=== PATIENT | male | born 1950 | race Caucasian/White ===

== ENCOUNTER → 2021-10-06 07:51 | Outpatient (CLI) | payer OTHER, MEDICARE, SELFPAY ==
[2021-10-06 08:27] LABS: Add Manual Diff / Slide Review NO; Basophils Absolute Auto 0 /uL (0-100); Basophils Percent Auto 0.7 % (0-2); Eosinophils Absolute Auto 100 /uL (0-450); Eosinophils Percent Auto 3.2 % (2-4); Hematocrit 39.9 % (41-53); Lymphocytes Absolute Auto 1300 /uL (1100-4500); Lymphocytes Percent Auto 33.4 % (25-40); Mean Corpuscular HGB Conc 32.5 % (30-36); Mean Corpuscular Hemoglobin 27.1 PG (26-34); Mean Corpuscular Volume 83.4 fL (80-100); Monocytes Absolute Auto 400 /uL (0-900); Monocytes Percent Auto 11.4 % (3-14); Neutrophils Absolute Auto 2000 /uL (1500-7000); Neutrophils Percent Auto 51.3 % (50-75); Platelet Count 206 X10^3/uL (150-400); Red Blood Cell Count 4.78 X10^6/uL (4.5-5.9); Red Cell Distribution Width 13.5 % (11.6-14.8); White Blood Cell Count 3.9 X10^3/uL (4.5-11.0)
[2021-10-06 08:41] LABS: Alanine Aminotransferase 16 IU/L (<50); Albumin 4.7 g/dL (3.5-5.0); Albumin Globulin Ratio 1.5 (1.0-2.8); Alkaline Phosphatase 127 U/L (38-126); Aspartate Aminotransferase 21 IU/L (17-59); BUN Creatinine Ratio 16.9 (6-22); Bilirubin Total 0.4 mg/dL (0.2-1.3); Blood Urea Nitrogen 12 mg/dL (9-20); Calcium 9.3 mg/dL (8.4-10.2); Carbon Dioxide 30 mmol/L (22-32); Chloride 102 mmol/L (98-107); Cholesterol 241 mg/dL (140-199); Estimated Glomerular Filt Rate > 60.0 mL/min (>60); Globulin 3.2 g/dL (1.7-4.1); Glucose 118 mg/dL (80-110); HDL Cholesterol 102 mg/dL (40-60); HEMOLYSIS < 15 (0-50); LDL Cholesterol Calculated 124 mg/dL (<100); Potassium 4.3 mmol/L (3.4-5.1); Sodium 137 mmol/L (137-145); Total Protein 7.9 g/dL (6.3-8.2); Triglycerides 73 mg/dL (35-150)
[2021-10-06 11:18] LABS: TSH w/ Reflex to FT4 < 0.02 uIU/mL (0.47-4.68)
[2021-10-06 11:44] LABS: Free T4, Direct Thyroxine 2.07 ng/dL (0.78-2.19)
== END ==
PROVIDERS: PCP Family Medicine; Referring Provider Internal Medicine Infectious Disease; Visit Provider Internal Medicine Infectious Disease
DX: C14.0 Malignant neoplasm of pharynx, unspecified (principal); E03.9 Hypothyroidism, unspecified; E78.5 Hyperlipidemia, unspecified; G40.909 Epilepsy, unspecified, not intractable, without status epilepticus; K21.9 Gastro-esophageal reflux disease without esophagitis
CPT/HCPCS: 36415; 80053; 80061; 83036; 84439; 84443; 85025

== ENCOUNTER → 2022-02-23 09:33 | Outpatient (CLI) | payer MEDICARE, SELFPAY ==
[2022-02-23 11:56] LABS: Hemoglobin A1C% w Est Avg Glu 5.8 % (4.0-6.0)
== END ==
PROVIDERS: PCP Family Medicine; Referring Provider Family Medicine; Visit Provider Family Medicine
DX: C14.0 Malignant neoplasm of pharynx, unspecified (principal); E03.9 Hypothyroidism, unspecified; E78.2 Mixed hyperlipidemia; G40.909 Epilepsy, unspecified, not intractable, without status epilepticus; R73.9 Hyperglycemia, unspecified
CPT/HCPCS: 36415; 83036

== ENCOUNTER 2022-09-01 10:16 | Day surgery (SDC) | payer MEDICARE, SELFPAY ==
--- NOTE | 2022-09-01 | PATH_ITS ---
[facility] Accession Number: [id number] No. of containers..05 Tissue . 01 Material submitted: . PART A: colon - TRANSVERSE COLON POLYP PART B: colon - ASCENDING COLON POLYP PART C: colon - TRANSVERSE COLON POLYP #2 PART D: colon - SIGMOID COLON POLYP PART E: rectum - RECTAL POLYP . 01 Diagnosis: A. Transverse Colon Polyp, Biopsy: Tubular adenoma. . B. Ascending Colon Polyp, Biopsy: Tubular adenoma. . C. Transverse Colon Polyp #2, Biopsy: Colonic mucosa with benign lymphoid aggregates. . D. Sigmoid Colon Polyp, Biopsy: Tubular adenoma. . E. Rectal Polyp, Biopsy: Tubular adenoma. [facility] 09/06/2022 [facility]7 Local . 01 Electronically signed: . Flower Dooley MD, Pathologist NPI- [id number] . 01 Gross description: . Part A: TRANSVERSE COLON POLYP: Received in formalin is 1 fragment(s) of pepe, soft tissue measuring 0.6 x 0.4 x 0.1 cm submitted entirely in 1 cassette(s) Part B: ASCENDING COLON POLYP: Received in formalin are multiple fragment(s) of pepe, soft tissue measuring 0.5 x 0.2 x 0.1 cm in aggregate submitted entirely in 1 cassette(s) Part C: TRANSVERSE COLON POLYP #2: Received in formalin are multiple fragment(s) of pepe, soft tissue measuring 1.7 x 0.5 x 0.1 cm in aggregate submitted entirely in 1 cassette(s) Part D: SIGMOID COLON POLYP: Received in formalin are multiple fragment(s) of pepe, soft tissue measuring 1.0 x 0.5 x 0.1 cm in aggregate submitted entirely in 1 cassette(s) Part E: RECTAL POLYP: Received in formalin is 1 fragment(s) of pepe, soft tissue measuring 0.4 x 0.3 x 0.2 cm submitted entirely in 1 cassette(s) /CPE 09/05/2022 0526 Local . 01 Pathologist provided ICD-10: D12.3, D12.2, D12.5, D12.8 . 01 CPT . 744128, 602367, 236959, [id number], [id number] Specimen Comment: A courtesy copy of this report has been sent to [facility] Pathology Performed at: [address] [facility] [address] [place] [address], [place], [place] [id number] MD Chivo Beaulieu MD Phone: [phone]
[2022-09-01 10:53] VITALS: BP 135/80; PULSE 88; RESP 16; TEMP 36.6; O2SAT 98; BMI 23.3
[2022-09-01] MEDS: LACTATED RINGERS 1,000 ML 120 ML IV (11:06)
--- NOTE | 2022-09-01 11:45 | PM.HP.1 ---
History of Present Illness History of Present Illness Chief complaint: Colonoscopy Narrative: Mr. Ewing presents today for a screening colonoscopy. It has been maybe 20 years since his last colonoscopy. He does not remember if there were any polyps or not. He understands that colonoscopy is recommended for screening for colon cancer. He has a lot to say however about his swallowing problems. He is not scheduled for an EGD today. In fact he explains that he has had several studies regarding his swallowing problem that has been going on for 20 years or so. He had a full workup at about 10 years ago but was disappointed that he never heard back and still feels that he has no explanation or no recourse for improvement of the swallowing problems. He has even had TEMS unit placed on his throat in the past. I am not seeing any previous records of EGDs or colonoscope but I do see an oncology note that documents that he has had squamous cell carcinoma of the base of the tongue and is status post surgery for resection and radiation therapy in 2002. I also see a document that states he has been treated for chronic mandible osteomyelitis in 2021. Otherwise he has no family history of colon cancer or other concerning symptoms. Patient History Medical History (Updated 06/24/21 @ 11:06 by Cristi Hunter MD) Epilepsy GERD (gastroesophageal reflux disease) Hyperlipidemia Hypothyroidism Throat cancer Family & Social History Social History: household members spouse Tobacco & Substance use: Smoking Status Never smoker alcohol intake frequency holiday/special occasion Substance Use Type does not use Meds Home Medications and Allergies Home Medications Medication Instructions Recorded Confirmed Type DISABLED PARKING PERMIT ##1 06/24/21 02/23/22 Rx levothyroxine 175 mcg tablet 175 mcg PO DAILY #90 tabs 02/23/22 09/01/22 Rx (Synthroid) pantoprazole 40 mg tablet,delayed 40 mg PO DAILY #90 tabs 02/23/22 09/01/22 Rx release phenytoin sodium extended 100 mg 100 mg PO TID #90 caps 02/23/22 09/01/22 Rx capsule (Dilantin Extended) pravastatin 80 mg tablet 80 mg PO BEDTIME #90 tabs 02/23/22 09/01/22 Rx Allergies Allergy/AdvReac Type Severity Reaction Status Date / Time No Known Drug Allergies Allergy Verified 09/01/22 10:42 Exam Vital Signs (past 8 hours): - 09/01/22 10:53 Temperature 97.9 F Pulse Rate 88 Respiratory Rate 16 Blood Pressure 135/80 Pulse Oximetry 98 Oxygen Delivery Method Room Air Oxygen Delivery Method Room Air Const General: cooperative, healthy appearing and comfortable Resp Effort & Inspection: normal respiratory effort and able to speak in complete sentences Cardio Pulses: radial pulses present GI Palpation: soft and No tender Assessment & Plan Assessment & Plan narrative: I did discuss risks benefits and alternatives of a screening colonoscopy for the purpose of screening for colon cancer. These risks include but are not limited to perforation of the colon and incomplete exam. The patient understands this and would like to proceed today. He does not feel that he needs an EGD today. I did offer to see him in the office if he wants to further discuss any swallowing issues. I am not sure if I would be able to help but I can requisition older medical documents and possibly order some additional testing. It may be that this swallowing issue is something that has limited treatment options due to his history of surgical resection and radiation therapy. Time Spent With Patient Critical Care time: I spent a total of [] minutes of critical care time on this patient's care today; this time is exclusive of procedural time.
--- NOTE | 2022-09-01 12:54 | P.OP.COLON_ITS ---
Operative Date/Time/Diagnoses Date of procedure: 09/01/22 Pre-op diagnosis: Colon cancer screening Post-op diagnosis: same Procedure & Clinicians Study performed: Colonoscopy and biopsy Same procedure as scheduled: Yes Surgeon: Lizabeth Bermeo Procedure Notes Procedure in detail: Patient was taken to the endoscopy suite and placed in a left lateral decubitus position. A time-out was performed. PHLEBOTOMY PROGRAM COORDINATOR helped with induction of conscious sedation. Digital rectal exam was performed there were no masses or strictures. The colonoscope was introduced into the anal canal and advanced through to the cecum. A photograph was taken of the appendiceal orifice. Withdrawal time in total was 28 minutes but included biopsies of 5 separate polyps. There was a transverse colon polyp that was encountered upon entry and snared and biopsied. Upon withdrawal another polyp was seen in the ascending colon and removed in to carlos this was a small 1. A 2nd transverse colon polyp was seen upon withdrawal again another small polyp. A sigmoid polyp and rectal polyp both of which were pedunculated but small and removed in total with the snare device. The scope was then retroflexed and hemorrhoid piles were seen within normal limits and photographed. There were some scattered diverticula throughout the sigmoid colon. Patient tolerated the procedure well and went in good condition to the postoperative care unit. Specimen(s): other (1. Transverse colon polyp 2. Ascending colon polyp 3. Transverse polyp #2. 4. Sigmoid polyp 5. Rectal polyp) Complications: none Post-procedure Plan for aftercare: Based on pathology results a possibly 3 year follow-up would be recommended. Depending on the polyp histology, 5 years might be possible, but most likely this will be a 3 year follow-up.
[2022-09-01 12:56] VITALS: BP 116/75; PULSE 69; RESP 12; TEMP 36.2; O2SAT 98
[2022-09-01 13:01] VITALS: BP 117/76; PULSE 72; RESP 12; O2SAT 98
[2022-09-01 13:02] VITALS: BP 125/87; PULSE 75; RESP 14; TEMP 36.2; O2SAT 96
== END 2022-09-01 13:23 | disposition home or self-care (01) ==
PROVIDERS: PCP Family Medicine; Referring Provider Surgery; Visit Provider Surgery
PROC: 0DJD8ZZ Inspection of Lower Intestinal Tract, Via Natural or Artificial Opening Endoscopic (ICD-10-PCS; CPT 45378; principal; 2022-09-01 11:30)
DX: Z12.11 Encounter for screening for malignant neoplasm of colon (principal); K57.30 Diverticulosis of large intestine without perforation or abscess without bleeding; D12.3 Benign neoplasm of transverse colon; D12.2 Benign neoplasm of ascending colon; D12.5 Benign neoplasm of sigmoid colon; D12.8 Benign neoplasm of rectum
CPT/HCPCS: 45385; 45380; J2704

== ENCOUNTER → 2023-03-17 06:54 | Outpatient (CLI) | payer MEDICARE, SELFPAY ==
--- NOTE | 2023-03-17 06:58 | DI.MRI.S_ITS ---
PROCEDURE: MR LUMBAR SPINE WO CON INDICATIONS: SPINAL STENOSIS LUMBAR REGION TECHNIQUE: Noncontrast sagittal T1 spin echo and T2 fast echo, sagittal STIR, and T2 fast spin echo through the lumbar spine. In cases with scoliosis, additional coronal T2 fast spin echo may be performed. COMPARISON: [facility] [place], CR, XR LUMBAR SPINE WITH OBLIQUES PLUS FLEXION EXTENSION, 02/28/2023, 10:50. FINDINGS: Image quality: Excellent. Alignment and Curvature: There is grade 1 retrolisthesis L2 on L3, trace anterolisthesis of L4 on L5. Posterior fusion is present from L3 through L5. Intervertebral disc/spacer is present L4-5 as well as L3-4. of L Bone Marrow: Marrow is of normal overall signal. No acute vertebral body compression fractures. Spinal Cord: Conus medullaris terminates at the T12-L1 level. Visualized cord demonstrates normal signal and size. Paraspinous Soft Tissues: No paravertebral masses. Discs: Multilevel qzak-uq-pgcloama disc desiccation. T12-L1: Minimal disc bulge without spinal stenosis or foraminal narrowing. Mild facet hypertrophy. L1-L2: Mild disc bulge with minimal canal narrowing. Mild left foraminal narrowing with facet and ligamentum flavum hypertrophy. L2-L3: Mild disc bulge with severe spinal stenosis. Severe bilateral foraminal narrowing, left greater than right with facet and ligamentum flavum hypertrophy. L3-L4: Mild disc bulge with mild spinal stenosis. Moderate left and mild right foraminal narrowing with facet and ligamentum flavum hypertrophy. L4-L5: Mild disc bulge with mild spinal stenosis. Moderate right and tacw-zr-rkmilkcb left foraminal narrowing with facet and ligamentum flavum hypertrophy. L5-S1: Mild disc bulge with minimal spinal stenosis. Krjn-zm-oybqsysh left and minimal right foraminal narrowing with facet hypertrophy. IMPRESSION: Postsurgical changes as above. Multilevel spinal stenosis most severe at L2-3 secondary to disc bulge with contributing effect of facet/ligamentum flavum arthropathy. Multilevel overall moderate to severe foraminal narrowing most significant at L2-3 secondary to disc bulge with contributing effect of facet/ligamentum flavum arthropathy. Dictated by: Marcie Trujillo M.D. on 03/19/2023 at 14:54 Approved by: Marcie Trujillo M.D. on 03/19/2023 at 15:01
== END ==
PROVIDERS: PCP Family Medicine; Referring Provider Orthopaedic Surgery Orthopaedic Surgery of the Spine; Visit Provider Orthopaedic Surgery Orthopaedic Surgery of the Spine
DX: M48.062 Spinal stenosis, lumbar region with neurogenic claudication (principal); M48.07 Spinal stenosis, lumbosacral region; M51.36 Other intervertebral disc degeneration, lumbar region; M47.816 Spondylosis without myelopathy or radiculopathy, lumbar region; M51.37 Other intervertebral disc degeneration, lumbosacral region; M47.817 Spondylosis without myelopathy or radiculopathy, lumbosacral region
CPT/HCPCS: 72148

== ENCOUNTER → 2023-03-26 08:20 | Outpatient (CLI) | payer MEDICARE, SELFPAY ==
[2023-03-26 09:52] LABS: Add Manual Diff / Slide Review NO; Basophils Absolute Auto 0 /uL (0-100); Basophils Percent Auto 0.5 % (0-2); Eosinophils Absolute Auto 200 /uL (0-450); Eosinophils Percent Auto 4.8 % (2-4); Hematocrit 38.4 % (41-53); Hemoglobin 12.6 g/dL (13.5-17.5); Lymphocytes Absolute Auto 800 /uL (1100-4500); Lymphocytes Percent Auto 23.3 % (25-40); Mean Corpuscular HGB Conc 32.9 % (30-36); Mean Corpuscular Hemoglobin 28.1 PG (26-34); Mean Corpuscular Volume 85.3 fL (80-100); Monocytes Absolute Auto 400 /uL (0-900); Monocytes Percent Auto 11.5 % (3-14); Neutrophils Absolute Auto 2200 /uL (1500-7000); Neutrophils Percent Auto 59.9 % (50-75); Platelet Count 190 X10^3/uL (150-400); Red Cell Distribution Width 14.3 % (11.6-14.8); White Blood Cell Count 3.6 X10^3/uL (4.5-11.0)
[2023-03-26 10:13] LABS: Alanine Aminotransferase 25 IU/L (<50); Albumin 4.5 g/dL (3.5-5.0); Albumin Globulin Ratio 1.4 (1.0-2.8); Alkaline Phosphatase 115 U/L (38-126); Aspartate Aminotransferase 25 IU/L (17-59); BUN Creatinine Ratio 26.7 (6-22); Bilirubin Total 0.4 mg/dL (0.2-1.3); Blood Urea Nitrogen 16 mg/dL (9-20); Carbon Dioxide 31 mmol/L (22-32); Chloride 102 mmol/L (98-107); Cholesterol 238 mg/dL (140-199); Estimated Glomerular Filt Rate > 60 mL/min (>60); Globulin 3.2 g/dL (1.7-4.1); Glucose 121 mg/dL (80-110); HDL Cholesterol 107 mg/dL (40-60); HEMOLYSIS < 15 (0-50); LDL Cholesterol Calculated 117 mg/dL (<100); Phenytoin / Dilantin 5.2 ug/mL (10-20); Sodium 140 mmol/L (137-145); Total Protein 7.7 g/dL (6.3-8.2); Triglycerides 69 mg/dL (35-150)
[2023-03-26 10:14] LABS: Potassium 5.4 mmol/L (3.4-5.1)
[2023-03-26 10:40] LABS: Prostate Specific Antigen 1.49 ng/mL (0.10-4.00)
[2023-03-26 10:42] LABS: TSH w/ Reflex to FT4 0.09 uIU/mL (0.47-4.68)
[2023-03-26 11:07] LABS: Free T4, Direct Thyroxine 1.31 ng/dL (0.78-2.19)
== END ==
PROVIDERS: PCP Family Medicine; Referring Provider Family Medicine; Visit Provider Family Medicine
DX: E03.9 Hypothyroidism, unspecified (principal); E78.2 Mixed hyperlipidemia; K21.9 Gastro-esophageal reflux disease without esophagitis; G40.909 Epilepsy, unspecified, not intractable, without status epilepticus
CPT/HCPCS: 36415; 80053; 80061; 80185; 84153; 84439; 84443; 85025

== ENCOUNTER → 2023-04-03 09:13 | Outpatient (CLI) | payer MEDICARE, SELFPAY | PROVIDERS: PCP Family Medicine; Referring Provider Orthopaedic Surgery Orthopaedic Surgery of the Spine; Visit Provider Orthopaedic Surgery Orthopaedic Surgery of the Spine | DX: Z01.818 Encounter for other preprocedural examination (principal) | CPT/HCPCS: 93005 ==

== ENCOUNTER → 2023-05-22 07:36 | Outpatient (CLI) | payer MEDICARE, SELFPAY ==
[2023-05-22 10:15] LABS: Add Manual Diff / Slide Review NO; Basophils Absolute Auto 0 /uL (0-100); Basophils Percent Auto 0.3 % (0-2); Eosinophils Absolute Auto 100 /uL (0-450); Eosinophils Percent Auto 2.1 % (2-4); Hemoglobin 13.2 g/dL (13.5-17.5); Lymphocytes Absolute Auto 1500 /uL (1100-4500); Lymphocytes Percent Auto 23.1 % (25-40); Mean Corpuscular Hemoglobin 28.3 PG (26-34); Mean Corpuscular Volume 85.7 fL (80-100); Monocytes Absolute Auto 700 /uL (0-900); Neutrophils Absolute Auto 4200 /uL (1500-7000); Neutrophils Percent Auto 64.5 % (50-75); Platelet Count 197 X10^3/uL (150-400); Red Blood Cell Count 4.67 X10^6/uL (4.5-5.9); Red Cell Distribution Width 13.6 % (11.6-14.8); White Blood Cell Count 6.6 X10^3/uL (4.5-11.0)
[2023-05-22 10:31] LABS: Alanine Aminotransferase 21 IU/L (<50); Albumin 4.8 g/dL (3.5-5.0); Albumin Globulin Ratio 1.5 (1.0-2.8); Alkaline Phosphatase 114 U/L (38-126); Aspartate Aminotransferase 24 IU/L (17-59); BUN Creatinine Ratio 24.3 (6-22); Bilirubin Total 0.6 mg/dL (0.2-1.3); Blood Urea Nitrogen 17 mg/dL (9-20); Calcium 10.4 mg/dL (8.4-10.2); Carbon Dioxide 32 mmol/L (22-32); Chloride 98 mmol/L (98-107); Estimated Glomerular Filt Rate > 60 mL/min (>60); Globulin 3.3 g/dL (1.7-4.1); Glucose 124 mg/dL (80-110); HEMOLYSIS < 15 (0-50); Potassium 4.1 mmol/L (3.4-5.1); Sodium 138 mmol/L (137-145); Total Protein 8.1 g/dL (6.3-8.2)
[2023-05-22 10:35] LABS: Hemoglobin A1C% w Est Avg Glu 6.2 % (4.0-6.0)
[2023-05-22 11:26] LABS: TSH w/ Reflex to FT4 0.18 uIU/mL (0.47-4.68)
[2023-05-22 12:06] LABS: Free T4, Direct Thyroxine 1.72 ng/dL (0.78-2.19)
[2023-05-23 04:18] LABS: Apolipoprotein B 94 mg/dL (<90)
== END ==
PROVIDERS: PCP Family Medicine; Referring Provider Family Medicine; Visit Provider Family Medicine
DX: Z00.00 Encounter for general adult medical examination without abnormal findings (principal); C14.0 Malignant neoplasm of pharynx, unspecified; E78.5 Hyperlipidemia, unspecified; E03.9 Hypothyroidism, unspecified
CPT/HCPCS: 36415; 80053; 82172; 83036; 84439; 84443; 85025

== ENCOUNTER → 2023-05-28 09:53 | Outpatient (CLI) | payer MEDICARE, SELFPAY ==
--- NOTE | 2023-05-28 09:55 | DI.RAD.S_ITS ---
PROCEDURE: XR CERVICAL SPINE 2V OR 3V INDICATIONS: Chronic Neck pain TECHNIQUE: 3 view(s) of the cervical spine were acquired. COMPARISON: None. FINDINGS: Bones: Expected appearance of cervical fusion hardware, post remote ACDF at C5 through C7 with anterior plate and screw fixation and mature interbody fusion. No evidence of hardware failure or loosening. Prominent bilateral cervical facet arthropathy. Trace anterolisthesis of C4 on C5. No fractures or dislocations to the T1 level. The lateral masses of C1 appear intact on the odontoid view. No suspicious bony lesions. Soft tissues: No prevertebral soft tissue swelling. IMPRESSION: 1. Expected appearance of cervical fusion. 2. Diffuse spondylitic change. Multilevel prominent facet arthropathy. Dictated by: Eddy Saravia M.D. on 05/28/2023 at 11:31 Approved by: Eddy Saravia M.D. on 05/28/2023 at 11:32
== END ==
PROVIDERS: PCP Family Medicine; Referring Provider Family Medicine; Visit Provider Family Medicine
DX: M48.02 Spinal stenosis, cervical region (principal); M47.812 Spondylosis without myelopathy or radiculopathy, cervical region; M48.061 Spinal stenosis, lumbar region without neurogenic claudication; M54.2 Cervicalgia; R26.89 Other abnormalities of gait and mobility; R42 Dizziness and giddiness; G89.28 Other chronic postprocedural pain; Z98.1 Arthrodesis status; Z98.890 Other specified postprocedural states
CPT/HCPCS: 72040

== ENCOUNTER → 2023-05-30 14:52 | Outpatient (CLI) | payer MEDICARE, SELFPAY ==
--- NOTE | 2023-05-30 15:50 | DI.MRI.S_ITS ---
PROCEDURE: MR BRAIN (IAC) WWO CON INDICATIONS: chronic imbalance TECHNIQUE: Noncontrast sagittal T1 spin echo, axial FLAIR, axial gradient echo, axial diffusion and ADC through the brain. Axial thin-slice 3D CISS, coronal TruFISP, axial T1 spin echo with fat saturation through the internal auditory canals. After the administration of contrast, thin slice axial and coronal T1 spin echo with fat saturation through the internal auditory canals, and axial and coronal and sagittal T1 spin echo with fat saturation through the brain. COMPARISON: None. FINDINGS: Image quality: Excellent. Cerebellopontine angles: No cerebellopontine angle masses. Inner ear structures appear normally formed. No suspicious enhancement in the internal auditory canal or along the course of the 7th cranial nerve. CSF spaces: Ventricles are normal in size and shape. No extra-axial fluid collections. Basal cisterns are patent. Brain: No intracranial bleeds or mass effects. Barber-white matter interface is intact. No abnormal intracranial enhancement. Diffusion weighted images demonstrate no acute ischemic insults. Brainstem appears normal. Normal intravascular flow voids are present. 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 The corpus callosum appears thinned, yet otherwise well formed. The brain within the left frontal lobe posteriorly appears poorly formed, with irregular, ectopic barber matter. Skull and face: Calvarial marrow signal is normal. Orbits appear normal. Postoperative change of the right orbital floor can be seen. Sinuses: Sinuses and mastoids are clear. IMPRESSION: No masses or abnormal enhancement are seen within the cerebellopontine angle cisterns or within the internal auditory canals. Additional findings: Absence of the septum pellucidum Poorly formed cortex of the left frontal lobe, with ectopic barber matter Postoperative change of the right orbital floor Dictated by: Peterson Hernadez M.D. on 05/30/2023 at 15:08 Approved by: Peterson Hernadez M.D. on 05/30/2023 at 15:12
== END ==
PROVIDERS: PCP Family Medicine; Referring Provider Family Medicine; Visit Provider Family Medicine
DX: R42 Dizziness and giddiness (principal); R26.89 Other abnormalities of gait and mobility; G89.28 Other chronic postprocedural pain; M54.2 Cervicalgia; M48.02 Spinal stenosis, cervical region; Z98.890 Other specified postprocedural states
CPT/HCPCS: 70553; A9579

== ENCOUNTER 2023-06-04 07:33 | Inpatient (IN) | payer MEDICARE, SELFPAY ==
[2023-05-30 08:42] VITALS: BMI 24.7
[2023-06-04] VITALS (13 sets, daily range): BP systolic 104–175; BP diastolic 65–99; PULSE 75–107; RESP 16–18; TEMP 36.3–37.4; O2SAT 91–99; BMI 24.7
[2023-06-04] MEDS: LACTATED RINGERS 1,000 ML 42 ML IV ×2 (08:51→11:35)
--- NOTE | 2023-06-04 09:20 | PM.PREOP ---
Pre-operative Note Interval Note History & Physical reviewed/Exam performed by Physician: Yes Changes to H&P: No
[2023-06-04] MEDS: CEFAZOLIN 2 GM/100 ML PREMIX 100 ML IV ×2 (09:55→17:01)
--- NOTE | 2023-06-04 10:51 | SUR.OPER ---
Prone on spine table, head in foam head support, padded chest and pelvic supports, gel pad at knees, lower legs supported by pillows; nipples, genitalia and toes free of pressure, arms secured on foam padded arm boards at <90 degrees abduction. Tape over blanket at thigh secured to table.
[2023-06-04] MEDS: BUPIVACAINE 0.25% (PF) 60 ML, EPINEPHrine 0.15 MG INJ (11:07)
[2023-06-04] MEDS: BUPIVACAINE LIPOSOME 266 MG/20 ML VIAL INJ (11:08)
--- NOTE | 2023-06-04 13:10 | PM.OP.1 ---
Operative Date/Time/Diagnoses Date of procedure: 06/04/23 Time of procedure: 10:00 Pre-op diagnosis: 1. L2-3 spondylolisthesis 2. L2-3 spinal stenosis with neurogenic claudication 3. History of L3-5 TLIF with instrumentation Post-op diagnosis: same Procedure & Clinicians Procedure: 1. L2-3 posterolateral and posterior interbody fusion 2. L2-3 posterior interbody cage placement 3. L3-4 revision laminectomy with exploration of fusion 4. L2-4 posterior segmental instrumentation with pedicle screw placement 5. L3-4 posterolatearl fusion 6. Roslyn of bone marrow from iliac crest through a separate incision 7. Utilization of microsurgical technique and operating microscope Same procedure as scheduled: Yes Indications: Patient has been having chronic back pain and worsening lumbar radiculopathy and symptoms of neurogenic claudication. Patient had prior L3-5 TLIF with progressively worsening leg pain weakness and numbness. Patient failed multiple conservative management with worsening pain weakness and numbness in his lower extremity consistent with progressive neurogenic claudication correlating with his pathology at L2-3 level. Patient has been having difficulty performing activity of daily living. After discussing risks benefits of treatment options, patient elected proceed with surgery. Surgeon: Carmina Simms Customer Service Technician: Yudith Slater Click Yes if Unassisted: No Anesthesia Type: General Operative Notes Closure Type: primary Specimen(s): none sent Prosthetic devices, grafts, tissues, transplants, or devices: Globus CREO MIS screws, Globus Extension system, Rise cage Estimated Blood Loss (mL): 100 Blood products transfused: none Procedure in detail: Patient was seen in the preoperative area. Risks and benefits of the surgery was discussed with the patient. Informed consent was obtained from the patient and placed in the chart. Surgical site was marked. Patient was taken to the operative room. General anesthesia was administered. Prophylactic antibiotic was given to the patient less than 30 min before the incision was made. Patient was placed into a prone position on the Chris table. Patient's back was then prepped and draped in the sterile fashion. Time-out was performed at this time. Using patient's previous scar incision was made over the L2-4 interval on the right side. Fascia was incised in line with skin incision. Patient's previously placed hardware over the L3-4 level was identified by dissecting down to the level the hardware using a Bovie and a Lea. The L3-L4 Tulip and rods was exposed and freed up of any scar tissue and calcified fusion mass in order to attach extension of posterior hardware. The Globus and MARS retractors was then placed into the wound and docked onto the L2 lamina using C-arm guidance. Using microsurgical technique and operating microscope a laminectomy facetectomy was performed by removing the L2 lamina and the L2-3 facet. The disc space at L2-3 level was identified next. And a total diskectomy was performed at L2-3 level. The endplates were decorticated using a rasp and shaver. The total diskectomy and decortication was performed at L2-3 level in order to to accomplish a L2-3 fusion. The local bone from the laminectomy and facetectomy was saved for local bone grafting. The laminectomy and facetectomy was performed in order to decompress patient's cauda equina as well as the nerve roots exiting at the L2-3 level. After the total diskectomy and decortication was completed, DBM bone graft material was combined with local bone that was harvested earlier. At this time, a separate skin is incision was made over the iliac crest. A Jamshidi needle was inserted into the iliac crest through a separate skin incision. 5 cc of bone marrow aspiration was obtained through the separate skin incision using a Jamshidi needle from the iliac crest. The bone marrow aspiration was combined with local bone and the DBM bone grafting material. The bone grafting material was placed into the L2-3 interbody space along with a expandable cage. The cage was expanded to its maximum height using the torque limiting screwdriver. At this time a mirror image incision was made on the left side. The fascia was incised in line with the skin incision. Patient's previously placed hardware on the left side was then exposed in the same fashion as it was on the right side. The hardware was also found to have good purchase. The fusion mass on the left side was exposed by performing a left-sided hemilaminectomy at L3-4 level. The hemilaminectomy was performed using the Kerrison rongeur to undercut the lamina as well removing additional epidural scar tissue for purpose of decompressing the epidural space. The fusion mass was explored and was found have visible motion indicating pseudoarthrosis at L3-4 level. Globus MARS retractor was inserted and docked onto the L2-3, L3-4 posterolateral gutter. Using the power drill, posterior-lateral decortication was performed at L2-3, L3-4 level until bleeding cortical bone was identified. The remaining bone grafting material was placed into the L2-3, L3-4 posterior lateral gutter he order to accomplish posterolateral fusion at the L2-3, L3-4 level. Using the double C-arm technique, pedicle screws were placed into the L2 pedicles on the right side. This was done by placing the Jamshidi needle into the pedicles, then placing the guidewires over the Jamshidi needle, and finally placing the cannulated screws over the guidewires on the right side. A L2 pedicle screw was placed into the left side using the same technique over time she and guidewire. The C3Nanous expansion system was used to attach the L2 pedicle screw to the wanda between L3-4 pedicle on both sides. After all locking bolt was tightened down using torque limiting drivers, locking wanda was then placed into the tulips and locked into place used torque limiting screwdriver. After the pedicle screws were placed, 2 titanium rods was locked into the heads of the pedicle screws using locking caps and torque limiting screwdriver. All hardware was found to have good purchase. After all the hardware was placed, and confirmed with AP and lateral C-arm imaging, the wound was then irrigated with sterile normal saline and packed with Ray-Davina gauze for 3 min to accomplish hemostasis. After the gauze was removed the deep fascia was closed with #1 Vicryl suture. The subcutaneous layer was closed with 2-0 Vicryl. The skin was closed with skin minna. Patient tolerated the procedure well. There were no complications. Neuro monitoring was used throughout the entire case and was stable throughout the entire case. The Operation could not have been safely performed without compromising the technical result or length of the procedure, without the assistance of a skilled certified surgical tech/first assistant. The certified surgical tech/first assistant was medically necessary for proper positioning, retraction and manipulation of instruments, proper exposure, surgical preparation, and manipulation of tissue. Complications: none Post-operative Condition: stable Disposition: PACU Plan for aftercare: Admit to inpatient hospital
--- NOTE | 2023-06-04 13:11 | DI.RAD.S_ITS ---
PROCEDURE: XR LUMBAR SPINE 2-3V INDICATIONS: L2-3 TLIF TECHNIQUE: 3 views of the lumbar spine were acquired. COMPARISON: None. FINDINGS: Intraoperative fluoroscopic views demonstrate L2-3 TLIF. IMPRESSION: L2-3 TLIF Dictated by: Doc Villanueva M.D. on 06/04/2023 at 13:37 Approved by: Doc Villanueva M.D. on 06/04/2023 at 13:37
[2023-06-04] MEDS: HYDROMORPHONE 1 MG INJ IV (13:32)
[2023-06-04] MEDS: OXYCODONE IR 5 MG TABLET PO (13:40)
[2023-06-04] MEDS: hydrOXYzine 50 MG/ML INJ 25 MG IM (13:43)
[2023-06-04] MEDS: LACTATED RINGERS 1,000 ML 125 ML IV ×2 (14:31→19:00)
[2023-06-04] MEDS: HYDROMORPHONE 0.5 MG INJ IV ×3 (15:15→23:22)
--- NOTE | 2023-06-04 15:42 | PT.IIE ---
Current Diagnoses Spondylolisthesis, lumbar region (06/04/23) Spinal stenosis, lumbar region with neurogenic claudication (06/04/23) Arthrodesis status (06/04/23) Surgery Performed Operation Date: 06/04/23 09:15 Actual Procedures p L2-3 TLIF, L2-4 PSF with instrumentation revision - Carmina Simms MD Surgical History (Last Updated 05/30/23 @ 09:17 by Thea Coles, RN) History of back surgery History of throat surgery (2002) Hx of cervical spine surgery (2000) Hx of eye surgery Medical History (Last Updated 05/30/23 @ 11:51 by Thea Coles, RN) At risk for aspiration Epilepsy GERD (gastroesophageal reflux disease) History of blood clots (04/2020) History of COVID-19 (04/2022) Hyperlipidemia Hypothyroidism Osteomyelitis of mandible Swallowing difficulty (2002) Throat cancer (2002) Physical Therapy Inpatient Evaluation/Re-Eval M1 PT/OT-IP Prior Functional Status Start: 06/04/23 15:06 Freq: NEEDED Status: Active Protocol: Document 06/04/23 15:10 MB (Rec: 06/04/23 15:42 MB [id number]) Medical Review Prior Functional Status Medical History Reviewed Yes Diet/Fluid Consistency Regular Communication WNLs Mobility and Gait I in house without AD, high pain, did drive Activities of Daily Living and IADL's Drove some, lives with and had high pain before this back surgery Social History Household Members spouse Living Arrangements House Number of Floors (Floors) Two Floors Number of Stairs To Enter/Railing? 2 steps with right rail to enter and can live on main level once inside Home Environment Walk in Shower,Built-In Shower Seat Home Equipment Straight Cane Employment Status Retired M2 PT-IP Current Condition Start: 06/04/23 15:06 Freq: NEEDED Status: Active Protocol: Document 06/04/23 15:10 MB (Rec: 06/04/23 15:42 MB [id number]) Physical Therapy Current Condition Current Condition Evaluation Date 06/04/23 Treatment Diagnosis S/p TLIF Onset Date Eval date M3 PT-IP Subjective Start: 06/04/23 15:06 Freq: NEEDED Status: Active Protocol: Document 06/04/23 15:10 MB (Rec: 06/04/23 15:42 MB [id number]) Subjective Physical Therapy Visit Type Type Initial Evaluation Visit Start Time 15:10 Visit Stop Time 15:27 Total Visit Minutes 17 Number of SPARK PLUG TESTER Visits 0 Physical Therapy Visit Comments Patient Comments I'll try it. Therapy Pain Assessment Pain When Pain Assessed During Mobility Pain Present Pain Present Pain Reported Location Back Intensity 9 Description Acute,Sharp Pain Behaviors Guarding,Wincing Pain Management Techniques Distraction,Re-positioning M4 PT-IP Mobility and Gait Start: 06/04/23 15:06 Freq: NEEDED Status: Active Protocol: Document 06/04/23 15:10 MB (Rec: 06/04/23 15:42 MB [id number]) PT-Bed Mobility Assessment Rolling Type of Rolling Roll to Left Level of Assist Independent Supine to Sit Supine to Sit Standby Assistance,1 Person Assistance,Head of Bed Elevated,Bedrails Scooting Scooting to Edge of Bed Standby Assistance PT-Transfer Assessment Sit to and From Stand Sit to and from Stand Contact Guard Assistance,1 Person Assistance,Use of Upper Extremities Equipment Transfer Assistive Device Gait Belt,Front Wheeled Walker Orthotic/Prosthetic Devices or Brace: No Transfers Transfer Destination Chair Transfer Technique Ambulation Transfer Ability Level of Assist Contact Guard Assistance,1 Person Assistance,Use of Upper Extremities Comments Mobility Comments Pt's mobility is slow d/t pain and he tends to hold his breath. Some c/o light- headedness once up in the chair and he is not orthostatic with nsg and PT checking vitals in supine and sitting. Gait Assessment Gait Gait Assistance Required: Minimum Assistance,1 Person Assist Distance (Feet) 3 Able to Maintain Weight Bearing Status Yes During Gait Assistive Devices Assistive Device Gait Belt,Front Wheeled Walker Orthotic/Prosthetic Devices or Brace: No Gait Deviations General Gait Pattern Antalgic,Decreased Stride Length,Decreased Feet Clearance,Flexed Trunk,Step-to Gait,Wide Based Gait Factors Limiting Gait Function Factors Limiting Gait Function Decreased Activity Tolerance, Decreased Strength,Pain,Poor Balance Comments Gait Comments Pt locks out arms on RW and he has antalgic gait pattern with short stepping and decreased step-length and foot clearance. Pt walks a few feet from the EOB to the recliner. Positioned in recliner with many pillow support behind back and under arms. PT-Balance Assessment Sitting Balance and Reactions Static Sitting Balance Ability Fair Dynamic Sitting Balance Ability Fair Standing Balance and Reactions Static Standing Balance Ability Fair Dynamic Standing Balance Ability Fair Device Used RW Comments Other Balance Tests/Deviations/Treatment Heavy UE support for sitting : balance and standing balance d /t pain and slow mobility post -op M5 PT-IP Objective Assessments Start: 06/04/23 15:06 Freq: NEEDED Status: Active Protocol: Document 06/04/23 15:10 MB (Rec: 06/04/23 15:42 MB [id number]) Orientation Orientation/Cognition Level of Alertness Lethargic Orientation Name,Age,Birthday,Month,Date, Year,Day of Week,Place, Situation Language Function Ability No Deficits Noted Safety Awareness Understands Safety Issues Memory Description No Deficits Noted Comments Pt has low vocal tone and a drawl but no deficits noticed. His neck is very tight with his head and spinal position and unsure if this may affect swallowing or not. Gross Range of Motion Upper Extremity ROM Impairments Defer to OT Lower Extremity ROM Assessment Bilaterally Impaired Impairments ROM with function only today post-op not too long before evaluation Strength Lower Extremity Strength Assessment Bilaterally Impaired Comments Strength Comments Did not MMT pt who is post-op today and c/o back pain with functional mobility Sensation Assessment Sensation Gross Sensation WNL M6 PT-IP Treatment Start: 06/04/23 15:06 Freq: NEEDED Status: Active Protocol: Document 06/04/23 15:10 MB (Rec: 06/04/23 15:42 [id number]) Physical Therapy Treatment Education Education Provided Precautions,Weight Bearing Status,Post-Op Packet,Safety M7 PT-IP Assessment and Plan Start: 06/04/23 15:06 Freq: NEEDED Status: Active Protocol: Document 06/04/23 15:10 MB (Rec: 06/04/23 15:42 [id number]) PT Summary Assessment and Plan Potential Rehabilitation Potential Good Status of Condition at Evaluation Evolving Summary Impairments Pain,ROM,Strength,Balance, Coordination,Cognition,Bed Mobility,Transfers,Gait, Activity Tolerance Progress Towards Goals Progressing Toward Goals Assessment Summary Pt is a 73 y/o male who has had many back surgeries in his life and he is s/p TLIF today . He does well for same day mobility assessment with PT and requires increased time and cues for log roll with use of bed rail, increased time for scooting EOB, heavy UE support and light assistance for transfers and to take a few steps to the recliner with RW. He will benefit from PT to maximize mobility before d/ c home with . Goals Bed Mobility Goal Independent Transfer Goal Independent,Front Wheeled Walker Gait Goal Independent,Front Wheel Walker Gait Distance 100 Other Goals Pt will ascend and descend two steps with rail and no more than superv assistance to allow safe home entry. Days to Meet Goals 2 Frequency of Treatment Frequency Of Treatment Twice a Day Treatment Plan Physical Therapy Treatment Plan Bed Mobility Training,Transfer Training,Gait Training, Therapeutic Exercise,Balance Retraining,Post Op Education, Discharge Planning,Hot or Cold Pack,Neuromuscular Re-ed Precautions Lumbar Precautions Log Roll,No Twisting,Limit Bending,Lifting Restriction of 10 lbs,Gait Belt above Incisional Area Weight Bearing Status Weight Bearing Status Weight Bear as Tolerated Recommendations To Nursing Amount of Assist Needed 1 Person Assist Discharge Recommendations PT Discharge Recommendations Home with 29/01 Assist Available Transportation Needs at Discharge Private Vehicle
[2023-06-04] MEDS: OXYCODONE IR 10 MG TABLET PO ×2 (16:26→20:55)
[2023-06-04] MEDS: PHENYTOIN ER 100 MG CAPSULE 300 MG PO (16:57)
--- NOTE | 2023-06-04 17:35 | PC.NURSE ---
Patient arrived to room 218 at 1415 this afternoon. He reports pain 7/10 controlled well controlled at 5/10. Initially SBP elevated HR 90's-100's, but SBP improved as pain level improved.Dressing to back is C/D/I. He reports very minimal tingling to BLE's huge improvement to what he states he was experiencing prior to surgery. He is able to stand up with PT and sit in the chair this afternoon. He is able to ambulate to the BR and void. IVF LR at 125ml/hr, call light in reach, items in reach, bed/chair alarm, frequent rounding and continuous pulse ox. Leslie at bedside this afternoon, supportive left to go home for the evening. Continuous monitoring.
[2023-06-04] MEDS: SENNOSIDES 8.6 MG TABLET 17.2 MG PO (20:55)
[2023-06-04] MEDS: hydrOXYzine pamoate 25 MG CAPSULE PO (20:55)
[2023-06-04] MEDS: DOCUSATE 100 MG CAPSULE PO (20:55)
[2023-06-05] MEDS: OXYCODONE IR 10 MG TABLET PO ×6 (00:01→15:36)
[2023-06-05] MEDS: HYDROMORPHONE 0.5 MG INJ IV ×3 (01:29→08:20)
[2023-06-05] MEDS: CEFAZOLIN 2 GM/100 ML PREMIX 100 ML IV (01:29)
[2023-06-05 05:05] VITALS: BP 113/58; PULSE 100; RESP 16; TEMP 37.3; O2SAT 93
[2023-06-05] MEDS: LEVOTHYROXINE 50 MCG TABLET 175 MCG PO (05:23)
[2023-06-05] MEDS: hydrOXYzine pamoate 25 MG CAPSULE PO (06:14)
[2023-06-05 06:16] LABS: Hematocrit 30.1 % (41-53)
[2023-06-05] MEDS: PANTOPRAZOLE DR 40 MG TABLET PO (08:40)
[2023-06-05] MEDS: DOCUSATE 100 MG CAPSULE PO (08:40)
[2023-06-05] MEDS: PHENYTOIN ER 100 MG CAPSULE 300 MG PO (08:40)
--- NOTE | 2023-06-05 09:09 | PT.IPTN ---
Current Diagnoses Spondylolisthesis, lumbar region (06/04/23) Spinal stenosis, lumbar region with neurogenic claudication (06/04/23) Arthrodesis status (06/04/23) Surgery Performed Operation Date: 06/04/23 09:15 Actual Procedures p L2-3 TLIF, L2-4 PSF with instrumentation revision - Carmina Simms MD Physical Therapy Treatment Note M2 PT-IP Current Condition Start: 06/04/23 15:06 Freq: NEEDED Status: Active Protocol: Document 06/04/23 15:10 MB (Rec: 06/04/23 15:42 MB [id number]) Physical Therapy Current Condition Current Condition Evaluation Date 06/04/23 Treatment Diagnosis S/p TLIF Onset Date Eval date M3 PT-IP Subjective Start: 06/04/23 15:06 Freq: NEEDED Status: Active Protocol: Document 06/05/23 10:02 TS (Rec: 06/05/23 10:24 TS [id number]) Subjective Physical Therapy Visit Type Type Treatment Note Visit Start Time 09:09 Visit Stop Time 09:33 Total Visit Minutes 24 Number of AGER TENDER Visits 1 Physical Therapy Visit Comments Patient Comments Pt found resting in chair, reports having increased pain this morning, is agreeable to PT. Therapy Pain Assessment Pain When Pain Assessed During Mobility Pain Present Pain Present Pain Reported Location Back Intensity 8 Scale Used Numeric (0 - 10) Description Aching,With Movement Pain Behaviors Guarding,Wincing Pain Management Techniques Distraction,Re-positioning, Timing of Activity with Medications M4 PT-IP Mobility and Gait Start: 06/04/23 15:06 Freq: NEEDED Status: Active Protocol: Document 06/05/23 10:02 TS (Rec: 06/05/23 10:24 TS [id number]) PT-Bed Mobility Assessment Rolling Type of Rolling Roll to Left Level of Assist Independent Supine to Sit Supine to Sit Standby Assistance,1 Person Assistance,Head of Bed Elevated,Bedrails Sit to Supine Sit to Supine Standby Assistance Scooting Scooting to Edge of Bed Standby Assistance Scooting Up and Down in Bed Standby Assistance PT-Transfer Assessment Sit to and From Stand Sit to and from Stand Contact Guard Assistance,1 Person Assistance,Use of Upper Extremities Equipment Transfer Assistive Device Gait Belt,Front Wheeled Walker Orthotic/Prosthetic Devices or Brace: No Comments Mobility Comments Pt found resting in bed, recalled 2/3 spinal precautions(no lifting). Sit to stand from chair with FWW CGA with cues for BUE support pushing from arms of chair. In standing pt reports feeling weak in his knees. He ambulated ~200' SBA with FWW and sep thru gait, continues to reports feeling weak but has no buckling or LOB. He performed steps x9 SBA with B handrail assist, required cues for feet fully on step and step to step. PT ambulated back to room, performed sit to supine SBA and supine to sit SBA, pt demonstrated good carryover of logroll sequencing. Pt was left in bed all needs met, RN notified. Gait Assessment Gait Gait Assistance Required: Standby Assistance Distance (Feet) 200 Able to Maintain Weight Bearing Status Yes During Gait Assistive Devices Assistive Device Gait Belt,Front Wheeled Walker Orthotic/Prosthetic Devices or Brace: No Gait Deviations General Gait Pattern Antalgic,Decreased Stride Length,Decreased Feet Clearance,Flexed Trunk,Step-to Gait,Wide Based Gait Factors Limiting Gait Function Factors Limiting Gait Function Decreased Activity Tolerance, Decreased Strength,Pain,Poor Balance Comments Gait Comments See mobility comments Stair Climbing Assessment Evaluation Level of Assist On Stairs Standby Assistance Devices Stair Climbing Assistive Devices Left Railing,Right Railing Technique/Endurance Stair Climbing Direction Ascend and Descend Stair Climbing Technique Step to Step Number of Steps Climbed 9 Comments Stair Climbing Comments See mobility comments PT-Balance Assessment Sitting Balance and Reactions Static Sitting Balance Ability Good Dynamic Sitting Balance Ability Good Standing Balance and Reactions Static Standing Balance Ability Good Dynamic Standing Balance Ability Fair Device Used RW Comments Other Balance Tests/Deviations/Treatment Pt sits EOB with no UE support : . M5 PT-IP Objective Assessments Start: 06/04/23 15:06 Freq: NEEDED Status: Active Protocol: Document 06/04/23 15:10 MB (Rec: 06/04/23 15:42 MB [id number]) Orientation Orientation/Cognition Level of Alertness Lethargic Orientation Name,Age,Birthday,Month,Date, Year,Day of Week,Place, Situation Language Function Ability No Deficits Noted Safety Awareness Understands Safety Issues Memory Description No Deficits Noted Comments Pt has low vocal tone and a drawl but no deficits noticed. His neck is very tight with his head and spinal position and unsure if this may affect swallowing or not. Gross Range of Motion Upper Extremity ROM Impairments Defer to OT Lower Extremity ROM Assessment Bilaterally Impaired Impairments ROM with function only today post-op not too long before evaluation Strength Lower Extremity Strength Assessment Bilaterally Impaired Comments Strength Comments Did not MMT pt who is post-op today and c/o back pain with functional mobility Sensation Assessment Sensation Gross Sensation WNL M6 PT-IP Treatment Start: 06/04/23 15:06 Freq: NEEDED Status: Active Protocol: Document 06/05/23 10:02 TS (Rec: 06/05/23 10:24 TS [id number]) Physical Therapy Treatment Education Education Provided Precautions,Weight Bearing Status,Post-Op Packet,Safety M7 PT-IP Assessment and Plan Start: 06/04/23 15:06 Freq: NEEDED Status: Active Protocol: Document 06/05/23 10:02 TS (Rec: 06/05/23 10:24 TS [id number]) PT Summary Assessment and Plan Potential Rehabilitation Potential Good Summary Impairments Pain,ROM,Strength,Balance, Coordination,Cognition,Bed Mobility,Transfers,Gait, Activity Tolerance Progress Towards Goals Progressing Toward Goals Assessment Summary Brian is progressing well with his mobility this session . He is SBA for all bed mobility and demonstrates good carryover logroll sequencing. He progressed his gait to ~ 200' SBA with FWW, has no buckling or LOB but feels weak in the knees. He progressed to stairs x9 SBA with B handrail assist. PT is recommending pt return home with 24/7 assist. Goals Bed Mobility Goal Independent Transfer Goal Independent,Front Wheeled Walker Gait Goal Independent,Front Wheel Walker Gait Distance 100 Other Goals Pt will ascend and descend two steps with rail and no more than superv assistance to allow safe home entry. Days to Meet Goals 2 Frequency of Treatment Frequency Of Treatment Twice a Day Treatment Plan Physical Therapy Treatment Plan Bed Mobility Training,Transfer Training,Gait Training, Therapeutic Exercise,Balance Retraining,Post Op Education, Discharge Planning,Hot or Cold Pack,Neuromuscular Re-ed Precautions Lumbar Precautions Log Roll,No Twisting,Limit Bending,Lifting Restriction of 10 lbs,Gait Belt above Incisional Area Weight Bearing Status Weight Bearing Status Weight Bear as Tolerated Recommendations To Nursing Amount of Assist Needed 1 Person Assist Discharge Recommendations PT Discharge Recommendations Home with 24/7 Assist Available Transportation Needs at Discharge Private Vehicle
--- NOTE | 2023-06-05 09:16 | CM.DANOTE ---
Addendum entered and electronically signed by KALEB Vides 06/05/23 13:35: Pt will d/c at 4:00pm today, when his gets off of work. Original Note: Reviewed EMR for pt's medical status and anticipated d/c needs. Met with pt at bedside to introduce self and role. He was found to be alert, oriented, and able to discuss his d/c preferences. Payor: [employer] Attending: Dr. Simms Pt is a 73 year-old M admitted for TLIF surgery. Pt's lower back and leg pain have been so severe that he has difficulty walking or standing, even briefly. Pt had tried conservative care measures such as NSAIDS and OP PT without lasting benefit, he was evaluated by Dr. Simms and admitted for TLIF surgery. Recommendations for d/c are OP PT, f/u with Ortho in 2-weeks. Plan is for pt to d/c today, spouse will drive him home. DCP to follow for any further identified needs. Discharge Planning/Care Management CM Discharge Assessment Start: 06/05/23 09:08 Freq: Status: Active Protocol: Document 06/05/23 09:09 DPL (Rec: 06/05/23 09:16 DPL [id number]) Discharge Planning Assessment Assigned Samples And Repairs Preparer KALEB Nichols Advance Directives? No History Provided By Patient,Medical Record Prior Living Arrangements House Household Members spouse Type of transporation used prior to Drives own vehicle admit Independent with ADL's No: Pt does need assistance from due to severe back/ leg pain. Is patient alert and oriented? Yes Needs Assistance With Home Chores / Shopping Caregiver for Another No Community Services used prior to Physical Therapy admission: DME Already Rented / Owned Cane Patient/Family Preference OP PT Therapy Comment Pt already has an established PT provider in the community that he plans to f/u with post -discharge. Barriers to Discharge No Discharge Plan Home Community Services Physical Therapy Transportation Arrangement Spouse Referrals Initiated None needed Whiteboard Updated in Patient Room with Yes name and ext. # of Samples And Repairs Preparer Review Status In Process Please Provide Date Initial DC 06/05/23 Assessment Was Performed Pre-Anesthesia Assessment Start: 05/30/23 08:42 Freq: Status: Complete Protocol: Document 05/30/23 08:42 CAB (Rec: 05/30/23 09:57 CAB [id number]) Pre-Anesthesia Assessment Preferred Name Brian Patient Information Reviewed Via Phone Assessment Assessment Completed With Patient Diagnostic Results BMP/CMP,CBC,EKG Comment Labs/EKG @ [facility] Primary Care Provider Cristi Hunter Seen Specialist in Last 12 Months Yes Specialist Seen Orthopedist,Other Comment Infectious Disease Primary Language Jamaican Windows Architect Required No Height 187.96 cm Weight 87.543 kg Body Mass Index (BMI) 24.7 Hearing Ability Normal Visual Impairment No Limitations Visual Assist None Dentition Type Teeth, Natural Present,Teeth, Missing Barriers to Learning None Hx Anesthesia Reactions No Hx Family Anesthesia Reaction No Hx Malignant Hyperthermia No Hx Blood Transfusions No Hx Blood Transfusion Reaction No Anesthesia Review Requested Yes: PAC courtesy re: Difficulty swallowing/ aspriation risk r/t throat cancer 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 No Does patient have JIN/SOB No Hx Sleep Apnea No CPAP/BIPAP use not prescribed Currently Taking a Beta Amina No Hx Chest Pain No Hx SOB No Hx Syncope or Dizziness No Anti-Coagulant Therapy No Has a Nurse Discharge No Cardiac Testing No Hx Pacemaker/ICD No Pacemaker Rep Required? No Diet Type At Home Dysphagia Dysphagia Yes: Requires a lot of fluid to assist with swallowing Gastrointestinal Symptoms Reflux Chronic UTI No Urinary Catheter Present No Hx Urinary Self Catheterization No Diabetes No HgbA1C 6.2 Date 04/03/23 Presence of External or Internal Medical Yes Devices Received a COVID vaccine? Yes Received all doses? Yes Marital Status Lives With spouse Current Living Arrangements House Number of Floors (Floors) Two Floors Support System Spouse Does the Patient Have Assistance After Yes Surgery Patient Discharge Plan Description Return Home Comment Pt advised 1-2 day length of stay per surgeon Feels Safe in Current Environment Yes Been Physically Hurt or Threatened By a No Person in Current Environment Do you have thoughts of harming yourself None or others? Are you currently considering suicide? No Do you have a plan to hurt yourself or No Plan others? Do You Have Any Spiritual Beliefs That No May Affect Your HC Choices? Do You Have Any Cultural Practices That No May Affect Your HC Choices? Comment Caitie Who Can We Speak to About Patient's Care Family, friends Identifying Code for Release of Patient Declines to issue Information Health Care Proxy/Next of Kin Leslie Boone () Health Care Proxy Emergency Contact Name Leslie Boone () Emergency Contact Advance Directives? No Power of Funeral Service Practitioner/Embalmer No PAC Instructions Durable medical equipment, Medications to take/avoid, Nasal antibiotic,No ETOH/ petroleum product on skin DOS, NPO,Pre-surgical wash,Sturdy shoes/comfortable clothes,Do not bring valuables and remove jewelry
--- NOTE | 2023-06-05 10:52 | OT.IP.EVAL ---
Current Diagnoses Spondylolisthesis, lumbar region (06/04/23) Spinal stenosis, lumbar region with neurogenic claudication (06/04/23) Arthrodesis status (06/04/23) Surgery Performed Operation Date: 06/04/23 09:15 Actual Procedures p L2-3 TLIF, L2-4 PSF with instrumentation revision - Carmina Simms MD Past Medical History (Last Updated 05/30/23 @ 11:51 by Thea Coles, RN) At risk for aspiration Epilepsy GERD (gastroesophageal reflux disease) History of blood clots (04/2020) History of COVID-19 (04/2022) Hyperlipidemia Hypothyroidism Osteomyelitis of mandible Swallowing difficulty (2002) Throat cancer (2002) Surgical History (Last Updated 05/30/23 @ 09:17 by Thea Coles, RN) History of back surgery History of throat surgery (2002) Hx of cervical spine surgery (2000) Hx of eye surgery Occupational Therapy Inpatient Evaluation/Re-Eval M1 PT/OT-IP Prior Functional Status Start: 06/05/23 11:34 Freq: NEEDED Status: Active Protocol: Document 06/05/23 10:25 [facility] (Rec: 06/05/23 11:48 [facility] [id number]) Medical Review Prior Functional Status Medical History Reviewed Yes Diet/Fluid Consistency Regular Communication WNLs Mobility and Gait I in house without AD, high pain, did drive Activities of Daily Living and IADL's Drove some, lives with and had high pain before this back surgery Social History Household Members spouse Living Arrangements House Number of Floors (Floors) Two Floors Number of Stairs To Enter/Railing? 2 steps with right rail to enter and can live on main level once inside Home Environment Walk in Shower,Built-In Shower Seat Home Equipment Straight Cane Employment Status Retired Additional Social History Comment Pt states his will be getting a FWW for him to use. M2 OT-IP Current Condition Start: 06/05/23 11:34 Freq: Status: Active Protocol: Document 06/05/23 10:25 [facility] (Rec: 06/05/23 11:48 [facility] [id number]) Occupational Therapy Current Condition Current Condition Evaluation Date 06/05/23 Treatment Diagnosis S/P L2-3 TLIF, L2-4 posterior instr and fusion Diagnosis Onset Date 06/04/23 Post Operative Precautions Lumbar Precautions Log Roll,No Twisting,Limit Bending,Lifting Restriction of 10 lbs,Gait Belt above Incisional Area M3 OT- IP Subjective and Pain Start: 06/05/23 11:34 Freq: Status: Active Protocol: Document 06/05/23 10:25 [facility] (Rec: 06/05/23 11:48 [facility] [id number]) OT- Subjective Occupational Therapy Visit Type Type Initial Evaluation Visit Start Time 10:25 Visit Stop Time 10:52 Total Visit Minutes 27 Occupational Therapy Visit Comments Patient Comments Pt is lots of pain but agreed to get up to brush his mouth out. Patient/Caregiver Goals To go home. OT Pain Assessment Pain When Pain Assessed At Rest Pain Present Pain Present Pain Reported Location Back Intensity 7 Scale Used Numeric (0 - 10) M4 OT- IP ADL's Start: 06/05/23 11:34 Freq: Status: Active Protocol: Document 06/05/23 10:25 [facility] (Rec: 06/05/23 11:48 [facility] [id number]) OT [id number]-[id number] General Evaluation Self-Feeding Ability Independent OT ADL-Grooming General Evaluation Grooming Ability Independent Areas Needing Assistance Retrieving/Set-up of Grooming Items Comments OT Grooming Comments Pt able to do while standing with FWW in front of the sink. OT ADL-Oral Care General Eval Oral Care Ability Independent Comments Oral Care Comments Educated best to hinge at his hips or spit into a cup in order to best follow his back precautions. OT ADL-Dressing Comments OT Dressing Comments Pt states his to assist. Able to show pt use of LB dressing equipment . OT ADL-Toileting Comments OT Toileting Comments Pt not having to go. Educated use of urinal at night can be helpful. OT ADL-Bathing Comments OT Bathing Comments Pt states his to assist. M5 OT- IP IADL's Start: 06/05/23 11:34 Freq: Status: Active Protocol: Document 06/05/23 10:25 [facility] (Rec: 06/05/23 11:48 [facility] [id number]) OT-Instrumental Activities of Daily Living Deficits IADL Deficits Identified Deficits Home Safety Awareness Awareness of Need for Assistance at Home Good Awareness Ability to Problem Solve Emergency Able to Problem Solve Situations Home Safety Comments At this time best for his to assist with his needs. Meal Preparation Meal Preparation Caregiver Provides Assist Costumed Character Costumed Character Caregiver Provides Assist M6 OT- IP Functional Cognition Start: 06/05/23 11:34 Freq: Status: Active Protocol: Document 06/05/23 10:25 [facility] (Rec: 06/05/23 11:48 [facility] [id number]) Cognitive Factors Limiting Selfcare Function Cognitive Ability Level of Alertness Alert Patient Orientation Name,Age,Birthday,Month,Date, Year,Day of Week,Place, Situation Attention Span Ability Capable of Focused Attention, Capable of Sustained Attention Ability to Follow Commands Able to Follow One Step Commands Safety Awareness Decreased Recall of Precautions,Decreased Ability to Apply Precautions Cognitive Comments Cognitive Assessment Comments Pt needing reminders for his back precautions and not to twist and be sure to take small steps when turning with the FWW. OT- Vision and Hearing OT- Hearing Assessment OT- Hearing Assessment WFL M7 OT- IP Mobility and Balance Start: 06/05/23 11:34 Freq: Status: Active Protocol: Document 06/05/23 10:25 [facility] (Rec: 06/05/23 11:48 [facility] [id number]) OT-Transfer Assessment Sit to and From Stand Sit to and from Stand Contact Guard Assistance Transfers Transfer Ability Contact Guard Assistance Technique Transfer Destination Bed,Chair Comments Mobility Comments CGA to stand, pt tends to buckle at this knees and needing vc to focus on straightening his legs out to stand. After up to his feet, pt SBA with FWW. VC to keep the FWW in front of him at all times for safety. OT- Balance Assessment Sitting Balance and Reactions Static Sitting Balance Ability Good Dynamic Sitting Balance Ability Good Standing Balance and Reactions Static Standing Balance Ability Good Dynamic Standing Balance Ability Fair M9 OT- IP Assessment and Plan Start: 06/05/23 11:34 Freq: Status: Active Protocol: Document 06/05/23 10:25 [facility] (Rec: 06/05/23 11:48 [facility] [id number]) OT Summary Assessment and Plan Potential Rehabilitation Potential Good Analytic Complexity at Evaluation Low Summary OT Impairments Pain,Strength,Balance, Functional Mobility,Dressing, Toileting,Bathing,Toilet Transfers,Shower Transfers, Activity Tolerance Progress Towards Goals Progressing Toward Goals,Slow Progress due to Pain Assessment Summary Pt low complexity and main barriers are pain , transition to stand, and will need assist for dressing and showering needs at this time. Pt will also need assist to stand from lower surfaces. Pt to go home with his when medically stable. Goals Dressing Goal Independent,Long Handled Shoe Horn,Surgical Scheduler,Sock Aid Toileting Goal Independent Bathing Goal Standby Assistance Toilet Transfer Goal Independent Shower Transfer Goal Independent Days to Meet Goals 7 Frequency of Treatment Frequency Of Treatment Once a Day Treatment Plan OT Treatment Plan ADL Training,Functional Mobility,Patient/Family Education,Discharge Planning Discharge Recommendations OT Discharge Recommendations Home with Assistance Home Equipment Needs ILEANA BRANTLEY dressing equipment Transportation Needs at Discharge Private Vehicle
[2023-06-05 12:00] VITALS: BP 95/47; PULSE 93; RESP 16; TEMP 37; O2SAT 97
--- NOTE | 2023-06-05 13:50 | PT.IPTN ---
Current Diagnoses Spondylolisthesis, lumbar region (06/04/23) Spinal stenosis, lumbar region with neurogenic claudication (06/04/23) Arthrodesis status (06/04/23) Surgery Performed Operation Date: 06/04/23 09:15 Actual Procedures p L2-3 TLIF, L2-4 PSF with instrumentation revision - Carmina Simms MD Physical Therapy Treatment Note M2 PT-IP Current Condition Start: 06/04/23 15:06 Freq: NEEDED Status: Active Protocol: Document 06/04/23 15:10 [facility] (Rec: 06/04/23 15:42 [facility] [id number]) Physical Therapy Current Condition Current Condition Evaluation Date 06/04/23 Treatment Diagnosis S/p TLIF Onset Date Eval date M3 PT-IP Subjective Start: 06/04/23 15:06 Freq: NEEDED Status: Active Protocol: Document 06/05/23 14:45 [facility] (Rec: 06/05/23 15:07 [facility] [id number]) Subjective Physical Therapy Visit Type Type Treatment Note Visit Start Time 13:50 Visit Stop Time 14:12 Total Visit Minutes 22 Number of CAR SEAT MAKER Visits 2 Physical Therapy Visit Comments Patient Comments Pt found resting in bed, is agreeable to PT. Therapy Pain Assessment Pain When Pain Assessed During Mobility Pain Present Pain Present Pain Reported M4 PT-IP Mobility and Gait Start: 06/04/23 15:06 Freq: NEEDED Status: Active Protocol: Document 06/05/23 14:45 [facility] (Rec: 06/05/23 15:07 [facility] [id number]) PT-Bed Mobility Assessment Rolling Type of Rolling Roll to Left Level of Assist Independent Supine to Sit Supine to Sit Standby Assistance,1 Person Assistance,Head of Bed Elevated,Bedrails Sit to Supine Sit to Supine Standby Assistance Scooting Scooting to Edge of Bed Standby Assistance Scooting Up and Down in Bed Standby Assistance PT-Transfer Assessment Sit to and From Stand Sit to and from Stand Standby Assistance,Use of Upper Extremities Equipment Transfer Assistive Device Gait Belt,Front Wheeled Walker Orthotic/Prosthetic Devices or Brace: No Comments Mobility Comments Supine to sit SBA with BUE support, pt demonstrates good awareness of his precautions. Sit to stand with FWW SBA with cues for BUE support. He ambulated ~300' SBA with FWW and a step thru gait. He performed steps x6 SBA with BUE support with no buckling or LOB. Pt ambulated back to room, sit to supine SBA with logroll technique. Pt was left in bed all needs met. Gait Assessment Gait Gait Assistance Required: Standby Assistance Distance (Feet) 300 Able to Maintain Weight Bearing Status Yes During Gait Assistive Devices Assistive Device Gait Belt,Front Wheeled Walker Orthotic/Prosthetic Devices or Brace: No Gait Deviations General Gait Pattern Antalgic,Decreased Stride Length,Decreased Feet Clearance,Flexed Trunk,Step-to Gait,Wide Based Gait Factors Limiting Gait Function Factors Limiting Gait Function Decreased Activity Tolerance, Decreased Strength,Pain,Poor Balance Comments Gait Comments See mobility comments Stair Climbing Assessment Evaluation Level of Assist On Stairs Standby Assistance Devices Stair Climbing Assistive Devices Left Railing,Right Railing Technique/Endurance Stair Climbing Direction Ascend and Descend Stair Climbing Technique Step to Step Number of Steps Climbed 6 Comments Stair Climbing Comments See mobility comments PT-Balance Assessment Sitting Balance and Reactions Static Sitting Balance Ability Good Dynamic Sitting Balance Ability Good Standing Balance and Reactions Static Standing Balance Ability Good Dynamic Standing Balance Ability Fair Device Used FWW M5 PT-IP Objective Assessments Start: 06/04/23 15:06 Freq: NEEDED Status: Active Protocol: Document 06/04/23 15:10 [facility] (Rec: 06/04/23 15:42 [facility] [id number]) Orientation Orientation/Cognition Level of Alertness Lethargic Orientation Name,Age,Birthday,Month,Date, Year,Day of Week,Place, Situation Language Function Ability No Deficits Noted Safety Awareness Understands Safety Issues Memory Description No Deficits Noted Comments Pt has low vocal tone and a drawl but no deficits noticed. His neck is very tight with his head and spinal position and unsure if this may affect swallowing or not. Gross Range of Motion Upper Extremity ROM Impairments Defer to OT Lower Extremity ROM Assessment Bilaterally Impaired Impairments ROM with function only today post-op not too long before evaluation Strength Lower Extremity Strength Assessment Bilaterally Impaired Comments Strength Comments Did not MMT pt who is post-op today and c/o back pain with functional mobility Sensation Assessment Sensation Gross Sensation WNL M6 PT-IP Treatment Start: 06/04/23 15:06 Freq: NEEDED Status: Active Protocol: Document 06/05/23 14:45 [facility] (Rec: 06/05/23 15:07 TS [id number]) Physical Therapy Treatment Education Education Provided Precautions,Weight Bearing Status,Post-Op Packet,Safety M7 PT-IP Assessment and Plan Start: 06/04/23 15:06 Freq: NEEDED Status: Active Protocol: Document 06/05/23 14:45 [facility] (Rec: 06/05/23 15:07 TS [id number]) PT Summary Assessment and Plan Potential Rehabilitation Potential Good Summary Impairments Pain,ROM,Strength,Balance, Coordination,Cognition,Bed Mobility,Transfers,Gait, Activity Tolerance Progress Towards Goals Progressing Toward Goals Assessment Summary Brian continues to make progress with his mobility. He progressed his gait to ~300' SBA with FWW, demonstrated increased strength and no buckling of knees. He continues to perform steps x6 SBA with B handrails. He continues to be SBA for all bed mobility. PT is recommending home with assist. Goals Bed Mobility Goal Independent Transfer Goal Independent,Front Wheeled Walker Gait Goal Independent,Front Wheel Walker Gait Distance 100 Other Goals Pt will ascend and descend two steps with rail and no more than superv assistance to allow safe home entry. Days to Meet Goals 2 Frequency of Treatment Frequency Of Treatment Twice a Day Treatment Plan Physical Therapy Treatment Plan Bed Mobility Training,Transfer Training,Gait Training, Therapeutic Exercise,Balance Retraining,Post Op Education, Discharge Planning,Hot or Cold Pack,Neuromuscular Re-ed Precautions Lumbar Precautions Log Roll,No Twisting,Limit Bending,Lifting Restriction of 10 lbs,Gait Belt above Incisional Area Weight Bearing Status Weight Bearing Status Weight Bear as Tolerated Recommendations To Nursing Amount of Assist Needed 1 Person Assist Discharge Recommendations PT Discharge Recommendations Home with Assistance Transportation Needs at Discharge Private Vehicle
--- NOTE | 2023-06-05 14:02 | PM.DS.1 ---
History of Present Illness History of Present Illness Date Patient Seen: 06/05/23 Time Patient Seen: 07:45 Chief complaint: Back pain Narrative: Patient states his pain has been [id number] this morning. He has been up out of bed and use the bathroom. No fever chills. Has assistance at home. Discharge Providers Provider Date of admission: 06/04/23 07:33 Discharge Date: 06/05/23 Primary care physician: Cristi Hunter MD Consults: 05/30/23 09:57 Consult to Anesthesiology Routine Comment: Consulting Provider: Anesthesiologist Reason for consultation: PAC courtesy re: Throat cancer, difficulty swallowing/aspiration risk 06/04/23 14:08 Consult to Occupational Therapy Evaluate & Treat Comment: Physician Instructions: Evaluate and treat Consult to Physical Therapy Evaluate & Treat Comment: Physician Instructions: Evaluate and Treat Discharge provider: Nick Louie PA-C Summary Hospital Course Discharge Diagnosis: 1. L2-3 spondylolisthesis 2. L2-3 spinal stenosis with neurogenic claudication 3. History of L3-5 TLIF with instrumentation Post-op diagnosis: same Hospital Course: 1. L2-3 posterolateral and posterior interbody fusion 2. L2-3 posterior interbody cage placement 3. L3-4 revision laminectomy with exploration of fusion 4. L2-4 posterior segmental instrumentation with pedicle screw placement 5. L3-4 posterolatearl fusion 6. [place] of bone marrow from iliac crest through a separate incision 7. Utilization of microsurgical technique and operating microscope Same procedure as scheduled: Yes Indications: Patient has been having chronic back pain and worsening lumbar radiculopathy and symptoms of neurogenic claudication. Patient had prior L3-5 TLIF with progressively worsening leg pain weakness and numbness. Patient failed multiple conservative management with worsening pain weakness and numbness in his lower extremity consistent with progressive neurogenic claudication correlating with his pathology at L2-3 level. Patient has been having difficulty performing activity of daily living. After discussing risks benefits of treatment options, patient elected proceed with surgery. Surgeon: Carmina Simms Wheel Fitter: Yudith Slater Click Yes if Unassisted: No Anesthesia Type: General Operative Notes Closure Type: primary Specimen(s): none sent Prosthetic devices, grafts, tissues, transplants, or devices: Globus CREO MIS screws, Globus Extension system, Rise cage Estimated Blood Loss (mL): 100 Blood products transfused: none Patient admitted to the hospital for the above-mentioned procedure. Patient consented to the same. Patient underwent lumbar fusion June 04, 2023. Patient back in his room recovering well as in stable condition. Patient will work with physical therapy. Multimodal pain management. Limit bending, twisting, lifting. Follow up in 2 weeks. Patient will be discharged home today after physical therapy if safe for home environment. Status at Discharge Cognitive/behavioral status at discharge: at baseline, oriented Functional status at discharge: uses cane/walker Overall status at discharge: patient is progressing back to baseline Exam Vital Signs (past 8 hours): - 06/05/23 12:00 Temperature 98.6 F Pulse Rate 93 H Respiratory Rate 16 Blood Pressure 95/47 L Pulse Oximetry 97 Oxygen Flow Rate 0 Oxygen Delivery Method Room Air Oxygen Flow Rate 0 Narrative Exam Narrative: 73-year-old male resting comfortably in bed in no apparent distress. Motor functions intact bilateral lower extremities. Sensation grossly intact to light touch bilateral lower extremities. Const General: cooperative and comfortable Nutritional Appearance: average body habitus Orientation: alert Resp Effort & Inspection: normal respiratory effort and able to speak in complete sentences Objective Labs 06/05/23 05:15 Labs: Laboratory Results - last 24 hr 06/05/23 05:15 Hgb 10.0 L Hct 30.1 L PFSH Medical History Osteomyelitis of mandible History of COVID-19 (04/2022) History of blood clots (04/2020) At risk for aspiration Swallowing difficulty (2002) Epilepsy GERD (gastroesophageal reflux disease) Hypothyroidism Hyperlipidemia Throat cancer (2002) Surgical History History of throat surgery (2002) Hx of eye surgery Hx of cervical spine surgery (2000) History of back surgery Social History household members: spouse Smoking Status: Never smoker alcohol intake: current Discharge Assessment & Plan Assessment and Plan Assessment: Patient progressing well status post lumbar fusion Plan of Treatment: Mobilize with physical therapy, limit bending, twisting, lifting Multimodal pain management Follow up Orthopedics in 2 weeks Discharge home today if physical therapy if safe for home environment Discharge Plan Discharge orders & Medications Discharge Orders: Discharge (Order); Ordered 06/05/23 Ordered By: Nick Louie Prescriptions: New acetaminophen 325 mg Tablet 650 mg PO Q6H PRN (Reason: Fever/Mild Pain (1-3)) Qty: 60 0RF docusate sodium 100 mg Capsule 100 mg PO BID Qty: 20 0RF oxycodone 10 mg Tablet 10 mg PO Q3H PRN (Reason: Pain, Severe (7-10)) Qty: 40 0RF Continued levothyroxine [Synthroid] 175 mcg tablet 175 mcg PO DAILY Qty: 270 0RF (DME) DISABLED PARKING PERMIT 0 .Route .MEDSUPPLY Qty: 1 0RF Rx Instructions: I FIND THIS PATIENT TO BE MEDICALLY DISABLED PARKING INDICATED, SIGNED, ON THE ACCOMPANYING DISABLED PARKING APPLICATION FOR INDIVIDUALS. amoxicillin-pot clavulanate 875-125 mg Tablet 1 tab PO BID pantoprazole 40 mg Tablet,Delayed Release (Dr/Ec) 40 mg PO DAILY pravastatin 80 mg tablet 20 mg PO DAILY pantoprazole [Protonix] 40 mg Tablet,Delayed Release (Dr/Ec) 40 mg PO DAILY phenytoin sodium extended 100 mg capsule 300 mg PO DAILY Discontinued naproxen sodium [Aleve] 220 mg Capsule 220 mg PO BID Follow up/Referrals: Cristi Hunter MD [Primary Care Provider] - Carmina Simms MD [Physician] - As previously scheduled (Follow up w/ Rayo Boyd PA-C, on 06/22/2023 @ 9:30 am at [facility].) Diet/Activity/Treatments Diet: Diet as Tolerated Activity: No deep bending or twisting at the waist. No lifting more than 10 pounds. Cold/Heat Therapy: Heating pad to low back as needed for pain. Skin/Wound/Dressing Care Report to your healthcare provider any signs of infection, such as:: chills, fever, night sweats, unusual drainage and unusual redness Dressing: May shower. Keep dressing as dry as possible. If dressing becomes wet or dirty, may remove and replace with clean, dry gauze. No bathing or otherwise soaking incisions. Do not apply any creams, lotions, or ointments to incisions. Visit Report/Discharge Packet Instructions: DI for Prescription Opioid Use, DI for Transforaminal Lumbar Interbody Fusion Stand Alone Forms: Patient Portal/API, Stroke Signs & Symptoms, Surgery Discharge Discharge Data Primary Care Provider: Cristi Hunter Quality VTE Deep Vein Thrombosis/Pulmonary Embolism Present on Admission: No
[2023-06-05 15:31] VITALS: BP 103/58; PULSE 99; RESP 16; TEMP 37.3; O2SAT 98
--- NOTE | 2023-06-05 16:22 | PC.NURSE ---
Patient discharged: Discharged paperwork reviewed with Leslie at bedside. All questions and concerns addressed. Patient medicated prior to departure. Aware of f/u appt (prev. scheduled) and medications sent to requested pharmacy. Patient able to ambulate to with FWW with no difficult. Belongings gathered. Patient departed floor in stable condition, A&O x4.
== END 2023-06-05 16:11 | disposition home or self-care (01) | DRG 455 ==
PROVIDERS: Admitting Provider Orthopaedic Surgery Orthopaedic Surgery of the Spine; PCP Family Medicine; Referring Provider Orthopaedic Surgery Orthopaedic Surgery of the Spine; Visit Provider Orthopaedic Surgery Orthopaedic Surgery of the Spine
PROC: 0SG00AJ Fusion of Lumbar Vertebral Joint with Interbody Fusion Device, Posterior Approach, Anterior Column, Open Approach (ICD-10-PCS; principal; 2023-06-04 09:15)
DX: M43.16 Spondylolisthesis, lumbar region (principal); M48.062 Spinal stenosis, lumbar region with neurogenic claudication; M96.1 Postlaminectomy syndrome, not elsewhere classified; E03.9 Hypothyroidism, unspecified; K21.9 Gastro-esophageal reflux disease without esophagitis; E78.5 Hyperlipidemia, unspecified; G40.909 Epilepsy, unspecified, not intractable, without status epilepticus; Z98.1 Arthrodesis status
CPT/HCPCS: 36415; 72100; 76000; 85014; 85018; 97116; 97161; 97165; 97530; 97535; C9290; J0171; J0330; J0690; J1100; J1170; J2405; J2704; J3010; J3410

== ENCOUNTER → 2023-10-16 11:37 | Outpatient (CLI) | payer MEDICARE, SELFPAY ==
[2023-06-04 14:46] VITALS: BMI 24.7
[2023-10-16 12:14] LABS: Add Manual Diff / Slide Review NO; Basophils Absolute Auto 0 /uL (0-100); Basophils Percent Auto 0.7 % (0-2); Eosinophils Absolute Auto 200 /uL (0-450); Eosinophils Percent Auto 3.8 % (2-4); Hematocrit 39.7 % (41-53); Lymphocytes Absolute Auto 900 /uL (1100-4500); Lymphocytes Percent Auto 21.3 % (25-40); Mean Corpuscular HGB Conc 32.8 % (30-36); Mean Corpuscular Hemoglobin 26.7 PG (26-34); Mean Corpuscular Volume 81.3 fL (80-100); Monocytes Absolute Auto 500 /uL (0-900); Monocytes Percent Auto 11.3 % (3-14); Neutrophils Absolute Auto 2800 /uL (1500-7000); Neutrophils Percent Auto 62.9 % (50-75); Platelet Count 200 X10^3/uL (150-400); Red Blood Cell Count 4.88 X10^6/uL (4.5-5.9); Red Cell Distribution Width 14.1 % (11.6-14.8); White Blood Cell Count 4.4 X10^3/uL (4.5-11.0)
[2023-10-16 12:39] LABS: Alanine Aminotransferase 20 IU/L (<50); Albumin 4.4 g/dL (3.5-5.0); Albumin Globulin Ratio 1.4 (1.0-2.8); Alkaline Phosphatase 108 U/L (38-126); Aspartate Aminotransferase 23 IU/L (17-59); BUN Creatinine Ratio 18.5 (6-22); Bilirubin Total 0.8 mg/dL (0.2-1.3); Blood Urea Nitrogen 12 mg/dL (9-20); Carbon Dioxide 30 mmol/L (22-32); Chloride 105 mmol/L (98-107); Estimated Glomerular Filt Rate > 60 mL/min (>60); Globulin 3.2 g/dL (1.7-4.1); Glucose 132 mg/dL (80-110); HEMOLYSIS < 15 (0-50); Potassium 4.2 mmol/L (3.4-5.1); Sodium 141 mmol/L (137-145); Total Protein 7.6 g/dL (6.3-8.2)
[2023-10-16 13:09] LABS: TSH w/ Reflex to FT4 < 0.02 uIU/mL (0.47-4.68)
[2023-10-16 19:37] LABS: Hemoglobin A1C% w Est Avg Glu 6.2 % (4.0-6.0)
[2023-10-17 22:24] LABS: Calcium 9.9 mg/dL (8.6-10.2); Parathyroid Hormone, Intact 32 pg/mL (15-65)
[2023-10-19 05:29] LABS: Free T4, Direct Thyroxine 3.48 ng/dL (0.78-2.19)
== END ==
PROVIDERS: PCP Family Medicine; Referring Provider Family Medicine; Visit Provider Family Medicine
DX: E03.9 Hypothyroidism, unspecified (principal); R73.09 Other abnormal glucose; D64.9 Anemia, unspecified; E78.2 Mixed hyperlipidemia; E83.52 Hypercalcemia
CPT/HCPCS: 36415; 80053; 82310; 83036; 83970; 84439; 84443; 85025

== ENCOUNTER → 2023-10-23 16:00 | Outpatient (CLI) | payer MEDICARE, SELFPAY ==
[2023-06-04 14:46] VITALS: BMI 24.7
--- NOTE | 2023-10-23 16:00 | DI.US.S_ITS ---
PROCEDURE: US ABD AORTA ANEURYSM SCREEN INDICATIONS: significant 2nd smoke exposure, palpable abdominal aorta TECHNIQUE: Real time scanning was performed of the aorta and iliac arteries, with image documentation. COMPARISON: None. FINDINGS: Aorta: Proximal aortic diameter measures 2.6 cm. Mid-aorta measures 2 cm. Distal aortic diameter is 2 cm. Iliac arteries: Right common iliac artery measures 1.2 cm. Left common iliac artery measures 1 cm. IMPRESSION: 1. No abdominal aortic aneurysm. 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 Recommend repeat imaging in 5 years. 2. Bilateral common iliac arteries are normal in caliber where visualized. Vascular incidental findings followup recommendations: ACR White Paper AAA imaging followup intervals: AAA defined as 3.0 cm or more luminal diameter. * 2.5-2.9 cm (ectasia): 5 year followup. * 3.0-3.4 cm: 3 year followup. * 3.5-3.9 cm: 3 year followup. * 4.0-4.4 cm: 1 year followup. * 4.5-4.9 cm: 6 month followup. Consider surgery/endovascular Rx. * 5.0-5.5 cm: 3-6 month followup. Consider surgery/endovascular Rx. Dictated by: Aye Christianson M.D. on 10/24/2023 at 11:00 Approved by: Aye Christianson M.D. on 10/24/2023 at 11:01
== END ==
PROVIDERS: PCP Family Medicine; Referring Provider Family Medicine; Visit Provider Family Medicine
DX: Z13.6 Encounter for screening for cardiovascular disorders (principal); I77.811 Abdominal aortic ectasia; R09.89 Other specified symptoms and signs involving the circulatory and respiratory systems; Z77.22 Contact with and (suspected) exposure to environmental tobacco smoke (acute) (chronic)
CPT/HCPCS: 76706

== ENCOUNTER → 2023-11-15 10:06 | Outpatient (CLI) | payer MEDICARE, SELFPAY ==
[2023-06-04 14:46] VITALS: BMI 24.7
--- NOTE | 2023-11-15 10:06 | DI.MRI.S_ITS ---
PROCEDURE: MR CERVICAL SPINE WO CON INDICATIONS: chronic neck pain, bilateral Upper ext radiculopathy TECHNIQUE: Noncontrast sagittal T1 spin echo and T2 fast spin echo, sagittal STIR, foraminal oblique sagittal T2 fast spin echo, and axial gradient echo or T2 fast spin echo through the cervical spine. COMPARISON: None. FINDINGS: Image quality: Excellent. Alignment and Curvature: There is normal bony alignment. There is anterior fusion from C5 through C7. Bone Marrow: Marrow demonstrates normal overall signal. Mild reactive endplate changes are present at C3-4, C4-5. Spinal Cord: Visualized spinal cord has normal size and signal. No cerebellar tonsillar herniation. Paraspinous Soft Tissues: No paravertebral masses. Prevertebral soft tissues are normal in thickness. Mild fluid is present within the right mastoid air cells. C2-C3: Minimal disc bulge without spinal stenosis. Mild to moderate left foraminal narrowing with uncovertebral hypertrophy. C3-C4: Mild disc bulge with superimposed posterior central protrusion with what appears to be a small extruded fragment. It is causing severe spinal stenosis and severe compromise of the left lateral recess. There is overall moderate to severe bilateral foraminal narrowing with uncovertebral hypertrophy. C4-C5: Mild disc bulge with posterior central protrusion. There is indentation of the anterior thecal sac as well as cord. Moderate bilateral C5-C6: Anterior fusion. Mild disc bulge without spinal stenosis. Moderate right and mild left foraminal narrowing with uncovertebral hypertrophy. C6-C7: Anterior fusion is present. Mild disc bulge without spinal stenosis. Hqqf-qv-eqcfnlic left foraminal narrowing with uncovertebral hypertrophy. C7-T1: Anterior fusion is present. Minimal disc bulge without spinal stenosis. Mild right foraminal narrowing with uncovertebral hypertrophy. IMPRESSION: Anterior fusion from C5 through C7. Prominent protrusion with what appears to be a small superimposed extruded fragment at C3-4 causing severe spinal stenosis and compromise of the left lateral recess. Dictated by: Marcie Trujillo M.D. on 11/16/2023 at 9:34 Approved by: Marcie Trujillo M.D. on 11/16/2023 at 9:50
== END ==
PROVIDERS: PCP Family Medicine; Referring Provider Physical Medicine & Rehabilitation; Visit Provider Physical Medicine & Rehabilitation
DX: M48.02 Spinal stenosis, cervical region (principal); M47.22 Other spondylosis with radiculopathy, cervical region; M50.11 Cervical disc disorder with radiculopathy, high cervical region; G89.28 Other chronic postprocedural pain; Z98.890 Other specified postprocedural states; M43.23 Fusion of spine, cervicothoracic region
CPT/HCPCS: 72141

== ENCOUNTER → 2024-05-29 16:33 | Outpatient (CLI) | payer MEDICARE, SELFPAY ==
[2023-06-04 14:46] VITALS: BMI 24.7
--- NOTE | 2024-05-29 16:34 | DI.MRI.S_ITS ---
PROCEDURE: MR CERVICAL SPINE WO/W CON INDICATIONS: spinal stenosis TECHNIQUE: Noncontrast sagittal T1 spin echo and T2 fast spin echo, sagittal STIR, foraminal oblique sagittal T2 fast spin echo, axial gradient echo or T2 fast spin echo through the cervical spine. After the administration of contrast, axial and sagittal T1 spin echo with fat saturation through the cervical spine. COMPARISON: [facility], MR, MR CERVICAL SPINE WO CON, 11/15/2023, 10:47. FINDINGS: Alignment and curvature: There is normal bony alignment. Marrow: Interval C3-4 discectomy and fusion with anterior plate and screw hardware. C5-6 and C6-7 discectomy and fusion with good graft incorporation and plate and screw instrumentation remains unchanged from the prior. Spinal cord: Visualized spinal cord has normal size and signal. No cerebellar tonsillar herniation. No abnormal intramedullary enhancement. Paraspinous soft tissues: No paravertebral masses or suspicious enhancement. C2-3: No central or foraminal stenosis. C3-4: Instrumented discectomy and fusion. A left paracentral disc protrusion associated with osteophyte is again noted mild but slightly smaller than the prior exam. There is indentation of the ventral surface of the cord. Central canal stenosis has improved, but there is residual [id number] central stenosis as well. Severe bilateral foraminal stenosis. C4-5: Central posterior disc osteophyte complex also indents the ventral surface of the cord, similar to the prior. Lpwc-hc-lzgkebor central stenosis. Hypertrophic arthropathy associated with severe bilateral foraminal stenosis is greater on the right C5-6: Discectomy and fusion. No central stenosis. No foraminal stenosis. C6-7: Discectomy and fusion. No central stenosis. No foraminal stenosis. C7-T1: No central or foraminal stenosis. IMPRESSION: New C3-4 discectomy and fusion with anterior plate and screw hardware in place. Recurrence or residual left paracentral disc protrusion is smaller than previous, but does indent the ventral surface of the cord. Residual voxs-lf-xxuqvrpa central stenosis has improved. Persistent severe bilateral foraminal stenosis. Stable C4-5 central disc osteophyte complex with [id number] central stenosis. Stable C5-6 and C6-7 instrumented discectomy and fusion Approved by: Joe Mendoza M.D. on 05/30/2024 at 13:10
== END ==
LOC: MRI 16:34
PROVIDERS: PCP Family Medicine; Referring Provider Neurological Surgery; Visit Provider Neurological Surgery
DX: M50.01 Cervical disc disorder with myelopathy, high cervical region (principal); M48.02 Spinal stenosis, cervical region; Z98.1 Arthrodesis status
CPT/HCPCS: 72156; A9579

== ENCOUNTER → 2024-06-10 10:26 | Outpatient (CLI) | payer MEDICARE, SELFPAY ==
[2023-06-04 14:46] VITALS: BMI 24.7
[2024-06-10 10:57] LABS: Estimated Glomerular Filt Rate > 60 mL/min (>60)
== END ==
PROVIDERS: PCP Family Medicine; Referring Provider Radiology Diagnostic Radiology; Visit Provider Radiology Diagnostic Radiology
DX: R68.84 Jaw pain (principal)
CPT/HCPCS: 36415; 82565

== ENCOUNTER → 2024-06-12 06:22 | Outpatient (CLI) | payer MEDICARE, SELFPAY ==
[2023-06-04 14:46] VITALS: BMI 24.7
--- NOTE | 2024-06-12 06:24 | DI.CT.S_ITS ---
PROCEDURE: CT FACIAL BONES W CON INDICATIONS: jaw pain TECHNIQUE: After the administration of intravenous contrast, 2.5 mm axial sections acquired from the mid-neck to the frontal sinuses, with coronal and sagittal reformats. For radiation dose reduction, the following was used: automated exposure control, adjustment of mA and/or kV according to patient size. COMPARISON: None. FINDINGS: Image quality: There is artifact associated with the metallic hardware. Artifact from the metallic hardware is reduced by metal reconstruction algorithm. Soft tissues: No definite tongue base masses can be seen. Postoperative change can be seen, with removal of portions of the soft tissues of the right neck. Vascular: Visualized vascular structures appear patent throughout. Bony vascular foramina and canals appear normal. Bones: There is abnormal demineralization seen involving the mid and proximal mandible on the right. This is asymmetric to the left mandible. Postoperative change can be seen involving the right orbital floor. Sinuses: Focal moderate mucosal thickening can be seen involving the right maxillary sinus. The paranasal sinuses are otherwise unremarkable. IMPRESSION: Mild asymmetric demineralization of the right mandible compared to the left. The appearance is nonspecific, although please consider radiation affect. Additional findings: Postoperative change of the right overall floor Focal right maxillary sinus disease Dictated by: Peterson Hernadez M.D. on 06/12/2024 at 10:16 Approved by: Peterson Hernadez M.D. on 06/12/2024 at 10:21
== END ==
PROVIDERS: PCP Family Medicine; Referring Provider Dentist Oral and Maxillofacial Surgery; Visit Provider Dentist Oral and Maxillofacial Surgery
DX: R68.84 Jaw pain (principal)
CPT/HCPCS: 70487; Q9967

== ENCOUNTER → 2024-07-10 08:35 | Outpatient (CLI) | payer MEDICARE, SELFPAY ==
[2023-06-04 14:46] VITALS: BMI 24.7
--- NOTE | 2024-07-10 08:36 | DI.RAD.S_ITS ---
PROCEDURE: XR HIP W PEL IF DONE RT 2V INDICATIONS: right hip and knee pain TECHNIQUE: AP pelvis with lateral view(s) of the right hip(s). COMPARISON: None. FINDINGS: Bones: No fractures or dislocations. Pelvic ring appears intact. No suspicious bony lesions. Note is made of [id number]-[id number] right hip joint osteoarthritis and mild left hip joint osteoarthritis. Soft tissues: The visualized bowel gas pattern is normal. No suspicious soft tissue calcifications. IMPRESSION: No acute bony abnormality. Asymmetric hip joint osteoarthritis, mild to moderate overall, greater on the right than the left. Dictated by: Baldemar Hopkins M.D. on 07/10/2024 at 13:24 Approved by: Baldemar Hopkins M.D. on 07/10/2024 at 13:25
--- NOTE | 2024-07-10 08:36 | DI.RAD.S_ITS ---
PROCEDURE: XR KNEE RT 3V INDICATIONS: right hip and knee pain TECHNIQUE: 3 views of the knee were acquired. COMPARISON: None. FINDINGS: Bones: No fractures or dislocations. No suspicious bony lesions. Soft tissues: No joint effusion. No suspicious soft tissue calcifications. IMPRESSION: No acute bony abnormality or significant effusion. Mild joint space narrowing at the medial compartment, without effusion or evidence of prior trauma. Mild osteoarthritis. Dictated by: Baldemar Hopkins M.D. on 07/10/2024 at 13:26 Approved by: Baldemar Hopkins M.D. on 07/10/2024 at 13:26
[2024-07-10 09:15] LABS: Add Manual Diff / Slide Review NO; Basophils Absolute Auto 0 /uL (0-100); Basophils Percent Auto 0.8 % (0-2); Eosinophils Absolute Auto 200 /uL (0-450); Eosinophils Percent Auto 5.3 % (2-4); Hematocrit 39.9 % (41-53); Hemoglobin 12.9 g/dL (13.5-17.5); Lymphocytes Absolute Auto 1000 /uL (1100-4500); Lymphocytes Percent Auto 23.8 % (25-40); Mean Corpuscular HGB Conc 32.4 % (30-36); Mean Corpuscular Hemoglobin 26.2 PG (26-34); Monocytes Absolute Auto 500 /uL (0-900); Monocytes Percent Auto 11.2 % (3-14); Neutrophils Absolute Auto 2500 /uL (1500-7000); Neutrophils Percent Auto 58.9 % (50-75); Platelet Count 212 X10^3/uL (150-400); Red Blood Cell Count 4.93 X10^6/uL (4.5-5.9); Red Cell Distribution Width 14.2 % (11.6-14.8); White Blood Cell Count 4.3 X10^3/uL (4.5-11.0)
[2024-07-10 09:45] LABS: Alanine Aminotransferase 32 IU/L (<50); Albumin 4.5 g/dL (3.5-5.0); Albumin Globulin Ratio 1.8 (1.0-2.8); Alkaline Phosphatase 115 U/L (38-126); Aspartate Aminotransferase 31 IU/L (17-59); BUN Creatinine Ratio 21.9 (6-22); Bilirubin Total 0.6 mg/dL (0.2-1.3); Blood Urea Nitrogen 16 mg/dL (9-20); Calcium 10.2 mg/dL (8.4-10.2); Carbon Dioxide 31 mmol/L (22-32); Chloride 104 mmol/L (98-107); Cholesterol 171 mg/dL (140-199); Estimated Glomerular Filt Rate > 60 mL/min (>60); Globulin 2.5 g/dL (1.7-4.1); Glucose 124 mg/dL (80-110); HDL Cholesterol 105 mg/dL (40-60); HEMOLYSIS < 15 (0-50); LDL Cholesterol Calculated 55 mg/dL (<100); Sodium 139 mmol/L (137-145); Triglycerides 56 mg/dL (35-150)
[2024-07-10 09:46] LABS: Potassium 5.4 mmol/L (3.4-5.1)
[2024-07-10 10:17] LABS: TSH w/ Reflex to FT4 < 0.02 uIU/mL (0.47-4.68)
[2024-07-10 10:20] LABS: Prostate Specific Antigen Scrn 1.55 ng/mL (0.1-4.0)
[2024-07-10 11:17] LABS: Free T4, Direct Thyroxine 2.59 ng/dL (0.78-2.19)
== END ==
PROVIDERS: PCP Family Medicine; Referring Provider Family Medicine; Visit Provider Family Medicine
DX: Z12.5 Encounter for screening for malignant neoplasm of prostate (principal); M25.551 Pain in right hip; Z00.00 Encounter for general adult medical examination without abnormal findings; E03.9 Hypothyroidism, unspecified; R09.89 Other specified symptoms and signs involving the circulatory and respiratory systems; M25.561 Pain in right knee; E78.5 Hyperlipidemia, unspecified; K21.9 Gastro-esophageal reflux disease without esophagitis; M48.061 Spinal stenosis, lumbar region without neurogenic claudication; R73.9 Hyperglycemia, unspecified; G40.909 Epilepsy, unspecified, not intractable, without status epilepticus; M54.2 Cervicalgia; G89.28 Other chronic postprocedural pain; Z98.890 Other specified postprocedural states
CPT/HCPCS: 36415; 73502; 73562; 80053; 80061; 84439; 84443; 85025; G0103

== ENCOUNTER → 2024-10-17 08:47 | Outpatient (CLI) | payer MEDICARE, SELFPAY ==
[2023-06-04 14:46] VITALS: BMI 24.7
== END ==
PROVIDERS: PCP Family Medicine; Visit Provider Physician Assistant
DX: M27.2 Inflammatory conditions of jaws (principal); M87.88 Other osteonecrosis, other site; Z85.810 Personal history of malignant neoplasm of tongue; G40.909 Epilepsy, unspecified, not intractable, without status epilepticus; Z79.899 Other long term (current) drug therapy
CPT/HCPCS: 99204; 99212

== ENCOUNTER → 2024-10-17 09:44 | Outpatient (CLI) | payer MEDICARE, SELFPAY ==
[2023-06-04 14:46] VITALS: BMI 24.7
--- NOTE | 2024-10-17 09:46 | DI.RAD.S_ITS ---
PROCEDURE: XR CHEST 2V INDICATIONS: Eval for HBO tx TECHNIQUE: 2 views of the chest were acquired. COMPARISON: None. FINDINGS: Surgical changes and devices: Partially identified lumbar and cervical fusion hardware. Lungs and pleura: Lungs are clear. No pleural effusions or pneumothorax. Mediastinum: Mediastinal contours are normal. Heart size is normal. Bones and chest wall: No suspicious bony abnormalities. Soft tissues appear unremarkable. IMPRESSION: No acute cardiothoracic process. Dictated by: Andrew Montano M.D. on 10/17/2024 at 14:16 Approved by: Andrew Montano M.D. on 10/17/2024 at 14:17
== END ==
PROVIDERS: PCP Family Medicine; Referring Provider Physician Assistant; Visit Provider Physician Assistant
DX: Z01.810 Encounter for preprocedural cardiovascular examination (principal); M27.2 Inflammatory conditions of jaws; Z98.1 Arthrodesis status
CPT/HCPCS: 71046

== ENCOUNTER → 2024-10-24 10:29 | Outpatient (CLI) | payer MEDICARE, SELFPAY ==
[2023-06-04 14:46] VITALS: BMI 24.7
== END ==
LOC: WC 10:29
PROVIDERS: PCP Family Medicine; Referring Provider Family Medicine; Visit Provider Physician Assistant
DX: M27.2 Inflammatory conditions of jaws (principal); M87.88 Other osteonecrosis, other site; W88.8XXD Exposure to other ionizing radiation, subsequent encounter; Z85.810 Personal history of malignant neoplasm of tongue; G40.909 Epilepsy, unspecified, not intractable, without status epilepticus; Z79.899 Other long term (current) drug therapy
CPT/HCPCS: 99183; G0277

== ENCOUNTER → 2024-10-27 09:30 | Outpatient (CLI) | payer MEDICARE, SELFPAY ==
[2023-06-04 14:46] VITALS: BMI 24.7
== END ==
PROVIDERS: PCP Family Medicine; Referring Provider Family Medicine; Visit Provider Surgery
DX: M27.2 Inflammatory conditions of jaws (principal); M87.88 Other osteonecrosis, other site; W88.8XXD Exposure to other ionizing radiation, subsequent encounter; Z85.810 Personal history of malignant neoplasm of tongue; G40.909 Epilepsy, unspecified, not intractable, without status epilepticus; Z79.899 Other long term (current) drug therapy
CPT/HCPCS: 99183; G0277

== ENCOUNTER → 2024-10-28 14:31 | Outpatient (CLI) | payer MEDICARE, SELFPAY ==
[2023-06-04 14:46] VITALS: BMI 24.7
== END ==
PROVIDERS: PCP Family Medicine; Referring Provider Family Medicine; Visit Provider Surgery
DX: M27.2 Inflammatory conditions of jaws (principal); M87.88 Other osteonecrosis, other site; W88.8XXD Exposure to other ionizing radiation, subsequent encounter; Z85.810 Personal history of malignant neoplasm of tongue; G40.909 Epilepsy, unspecified, not intractable, without status epilepticus; Z79.899 Other long term (current) drug therapy
CPT/HCPCS: 99183; G0277

== ENCOUNTER → 2024-10-29 10:24 | Outpatient (CLI) | payer MEDICARE, SELFPAY ==
[2023-06-04 14:46] VITALS: BMI 24.7
== END ==
PROVIDERS: PCP Family Medicine; Referring Provider Family Medicine; Visit Provider Surgery
DX: M27.2 Inflammatory conditions of jaws (principal); M87.88 Other osteonecrosis, other site; W88.8XXD Exposure to other ionizing radiation, subsequent encounter; Z85.810 Personal history of malignant neoplasm of tongue; G40.909 Epilepsy, unspecified, not intractable, without status epilepticus; Z79.899 Other long term (current) drug therapy
CPT/HCPCS: 99183; G0277

== ENCOUNTER → 2024-11-04 11:34 | Outpatient (CLI) | payer MEDICARE, SELFPAY ==
[2023-06-04 14:46] VITALS: BMI 24.7
== END ==
PROVIDERS: PCP Family Medicine; Referring Provider Family Medicine; Visit Provider Surgery
DX: M27.2 Inflammatory conditions of jaws (principal); M87.88 Other osteonecrosis, other site; W88.8XXD Exposure to other ionizing radiation, subsequent encounter; Z85.810 Personal history of malignant neoplasm of tongue; G40.909 Epilepsy, unspecified, not intractable, without status epilepticus; Z79.899 Other long term (current) drug therapy
CPT/HCPCS: 99183; G0277

== ENCOUNTER → 2024-11-05 08:47 | Outpatient (CLI) | payer MEDICARE, SELFPAY ==
[2023-06-04 14:46] VITALS: BMI 24.7
== END ==
LOC: WC 08:48
PROVIDERS: PCP Family Medicine; Referring Provider Family Medicine; Visit Provider Surgery
DX: M27.2 Inflammatory conditions of jaws (principal); M87.88 Other osteonecrosis, other site; W88.8XXD Exposure to other ionizing radiation, subsequent encounter; Z85.810 Personal history of malignant neoplasm of tongue; G40.909 Epilepsy, unspecified, not intractable, without status epilepticus; Z79.899 Other long term (current) drug therapy
CPT/HCPCS: 99183; G0277

== ENCOUNTER → 2024-11-06 10:20 | Outpatient (CLI) | payer MEDICARE, SELFPAY ==
[2023-06-04 14:46] VITALS: BMI 24.7
== END ==
LOC: WC 10:20
PROVIDERS: PCP Family Medicine; Referring Provider Family Medicine; Visit Provider Surgery
DX: M27.2 Inflammatory conditions of jaws (principal); M87.88 Other osteonecrosis, other site; W88.8XXD Exposure to other ionizing radiation, subsequent encounter; Z85.810 Personal history of malignant neoplasm of tongue; G40.909 Epilepsy, unspecified, not intractable, without status epilepticus; Z79.899 Other long term (current) drug therapy
CPT/HCPCS: 99183; G0277

== ENCOUNTER → 2024-11-07 15:20 | Outpatient (CLI) | payer MEDICARE, SELFPAY ==
[2023-06-04 14:46] VITALS: BMI 24.7
== END ==
LOC: WC 15:21
PROVIDERS: PCP Family Medicine; Referring Provider Family Medicine; Visit Provider Physician Assistant
DX: M27.2 Inflammatory conditions of jaws (principal); M87.88 Other osteonecrosis, other site; W88.8XXD Exposure to other ionizing radiation, subsequent encounter; Z85.810 Personal history of malignant neoplasm of tongue; G40.909 Epilepsy, unspecified, not intractable, without status epilepticus; Z79.899 Other long term (current) drug therapy
CPT/HCPCS: 99183; G0277

== ENCOUNTER → 2024-11-10 09:15 | Outpatient (CLI) | payer MEDICARE, SELFPAY ==
[2023-06-04 14:46] VITALS: BMI 24.7
== END ==
LOC: WC 09:16
PROVIDERS: PCP Family Medicine; Referring Provider Family Medicine; Visit Provider Surgery
DX: M27.2 Inflammatory conditions of jaws (principal); M87.88 Other osteonecrosis, other site; W88.8XXD Exposure to other ionizing radiation, subsequent encounter; Z85.810 Personal history of malignant neoplasm of tongue; G40.909 Epilepsy, unspecified, not intractable, without status epilepticus; Z79.899 Other long term (current) drug therapy
CPT/HCPCS: 99183; G0277

== ENCOUNTER → 2024-11-11 15:35 | Outpatient (CLI) | payer MEDICARE, SELFPAY ==
[2023-06-04 14:46] VITALS: BMI 24.7
== END ==
LOC: WC 15:36
PROVIDERS: PCP Family Medicine; Referring Provider Family Medicine; Visit Provider Surgery
DX: M27.2 Inflammatory conditions of jaws (principal); M87.88 Other osteonecrosis, other site; W88.8XXD Exposure to other ionizing radiation, subsequent encounter; Z85.810 Personal history of malignant neoplasm of tongue; G40.909 Epilepsy, unspecified, not intractable, without status epilepticus; Z79.899 Other long term (current) drug therapy
CPT/HCPCS: 99183; G0277

== ENCOUNTER → 2024-11-12 10:13 | Outpatient (CLI) | payer MEDICARE, SELFPAY ==
[2023-06-04 14:46] VITALS: BMI 24.7
== END ==
LOC: WC 10:13
PROVIDERS: PCP Family Medicine; Referring Provider Family Medicine; Visit Provider Surgery
DX: M27.2 Inflammatory conditions of jaws (principal); M87.88 Other osteonecrosis, other site; W88.8XXD Exposure to other ionizing radiation, subsequent encounter; Z85.810 Personal history of malignant neoplasm of tongue; G40.909 Epilepsy, unspecified, not intractable, without status epilepticus; Z79.899 Other long term (current) drug therapy
CPT/HCPCS: 99183; G0277

== ENCOUNTER → 2024-11-13 08:41 | Outpatient (CLI) | payer MEDICARE, SELFPAY ==
[2023-06-04 14:46] VITALS: BMI 24.7
== END ==
LOC: WC 08:42
PROVIDERS: PCP Family Medicine; Referring Provider Family Medicine; Visit Provider Surgery
DX: M27.2 Inflammatory conditions of jaws (principal); M87.88 Other osteonecrosis, other site; W88.8XXD Exposure to other ionizing radiation, subsequent encounter; Z85.810 Personal history of malignant neoplasm of tongue; G40.909 Epilepsy, unspecified, not intractable, without status epilepticus; Z79.899 Other long term (current) drug therapy
CPT/HCPCS: 99183; G0277

== ENCOUNTER → 2024-11-14 14:25 | Outpatient (CLI) | payer MEDICARE, SELFPAY ==
[2023-06-04 14:46] VITALS: BMI 24.7
== END ==
LOC: WC 14:25
PROVIDERS: PCP Family Medicine; Referring Provider Family Medicine; Visit Provider Physician Assistant
DX: M27.2 Inflammatory conditions of jaws (principal); M87.88 Other osteonecrosis, other site; W88.8XXD Exposure to other ionizing radiation, subsequent encounter; Z85.810 Personal history of malignant neoplasm of tongue; G40.909 Epilepsy, unspecified, not intractable, without status epilepticus; Z79.899 Other long term (current) drug therapy
CPT/HCPCS: 99183; G0277

== ENCOUNTER → 2024-11-17 09:43 | Outpatient (CLI) | payer MEDICARE, SELFPAY ==
[2023-06-04 14:46] VITALS: BMI 24.7
== END ==
LOC: WC 09:44
PROVIDERS: PCP Family Medicine; Referring Provider Family Medicine; Visit Provider Surgery
DX: M27.2 Inflammatory conditions of jaws (principal); M87.88 Other osteonecrosis, other site; W88.8XXD Exposure to other ionizing radiation, subsequent encounter; Z85.810 Personal history of malignant neoplasm of tongue; G40.909 Epilepsy, unspecified, not intractable, without status epilepticus; Z79.899 Other long term (current) drug therapy
CPT/HCPCS: 99183; G0277

== ENCOUNTER → 2024-11-18 08:55 | Outpatient (CLI) | payer MEDICARE, SELFPAY ==
[2023-06-04 14:46] VITALS: BMI 24.7
== END ==
LOC: WC 08:57
PROVIDERS: PCP Family Medicine; Referring Provider Family Medicine; Visit Provider Surgery
DX: M27.2 Inflammatory conditions of jaws (principal); M87.88 Other osteonecrosis, other site; W88.8XXD Exposure to other ionizing radiation, subsequent encounter; Z85.810 Personal history of malignant neoplasm of tongue; G40.909 Epilepsy, unspecified, not intractable, without status epilepticus; Z79.899 Other long term (current) drug therapy
CPT/HCPCS: 99183; G0277

== ENCOUNTER → 2024-11-19 09:10 | Outpatient (CLI) | payer MEDICARE, SELFPAY ==
[2023-06-04 14:46] VITALS: BMI 24.7
== END ==
LOC: WC 09:11
PROVIDERS: PCP Family Medicine; Referring Provider Family Medicine; Visit Provider Surgery
DX: M27.2 Inflammatory conditions of jaws (principal); M87.88 Other osteonecrosis, other site; W88.8XXD Exposure to other ionizing radiation, subsequent encounter; Z85.810 Personal history of malignant neoplasm of tongue; G40.909 Epilepsy, unspecified, not intractable, without status epilepticus; Z79.899 Other long term (current) drug therapy
CPT/HCPCS: 99183; G0277

== ENCOUNTER → 2024-11-20 08:47 | Outpatient (CLI) | payer MEDICARE, SELFPAY ==
[2023-06-04 14:46] VITALS: BMI 24.7
== END ==
LOC: WC 08:48
PROVIDERS: PCP Family Medicine; Referring Provider Family Medicine; Visit Provider Surgery
DX: M27.2 Inflammatory conditions of jaws (principal); M87.88 Other osteonecrosis, other site; G40.909 Epilepsy, unspecified, not intractable, without status epilepticus; Z79.899 Other long term (current) drug therapy; W88.8XXA Exposure to other ionizing radiation, initial encounter
CPT/HCPCS: 99183; 99212; 99213; G0277

== ENCOUNTER → 2024-11-21 08:34 | Outpatient (CLI) | payer MEDICARE, SELFPAY ==
[2023-06-04 14:46] VITALS: BMI 24.7
== END ==
LOC: WC 08:36
PROVIDERS: PCP Family Medicine; Referring Provider Family Medicine; Visit Provider Physician Assistant
DX: M27.2 Inflammatory conditions of jaws (principal); M87.88 Other osteonecrosis, other site; W88.8XXD Exposure to other ionizing radiation, subsequent encounter; Z85.810 Personal history of malignant neoplasm of tongue; G40.909 Epilepsy, unspecified, not intractable, without status epilepticus; Z79.899 Other long term (current) drug therapy
CPT/HCPCS: 99183; G0277

== ENCOUNTER → 2024-11-24 10:35 | Outpatient (CLI) | payer MEDICARE, SELFPAY ==
[2023-06-04 14:46] VITALS: BMI 24.7
== END ==
PROVIDERS: PCP Family Medicine; Referring Provider Family Medicine; Visit Provider Surgery
DX: M27.2 Inflammatory conditions of jaws (principal); M87.88 Other osteonecrosis, other site; W88.8XXD Exposure to other ionizing radiation, subsequent encounter; Z85.810 Personal history of malignant neoplasm of tongue; G40.909 Epilepsy, unspecified, not intractable, without status epilepticus; Z79.899 Other long term (current) drug therapy
CPT/HCPCS: 99183; G0277

== ENCOUNTER → 2024-11-25 09:09 | Outpatient (CLI) | payer MEDICARE, SELFPAY ==
[2023-06-04 14:46] VITALS: BMI 24.7
== END ==
PROVIDERS: PCP Family Medicine; Referring Provider Family Medicine; Visit Provider Surgery
DX: M27.2 Inflammatory conditions of jaws (principal); M87.88 Other osteonecrosis, other site; W88.8XXD Exposure to other ionizing radiation, subsequent encounter; Z85.810 Personal history of malignant neoplasm of tongue; G40.909 Epilepsy, unspecified, not intractable, without status epilepticus; Z79.899 Other long term (current) drug therapy
CPT/HCPCS: 99183; G0277

== ENCOUNTER → 2024-11-26 09:34 | Outpatient (CLI) | payer MEDICARE, SELFPAY ==
[2023-06-04 14:46] VITALS: BMI 24.7
== END ==
PROVIDERS: PCP Family Medicine; Referring Provider Family Medicine; Visit Provider Surgery
DX: M27.2 Inflammatory conditions of jaws (principal); M87.88 Other osteonecrosis, other site; W88.8XXD Exposure to other ionizing radiation, subsequent encounter; Z85.810 Personal history of malignant neoplasm of tongue; G40.909 Epilepsy, unspecified, not intractable, without status epilepticus; Z79.899 Other long term (current) drug therapy
CPT/HCPCS: 99183; G0277

== ENCOUNTER → 2024-11-27 09:41 | Outpatient (CLI) | payer MEDICARE, SELFPAY ==
[2023-06-04 14:46] VITALS: BMI 24.7
== END ==
PROVIDERS: PCP Family Medicine; Referring Provider Family Medicine; Visit Provider Surgery
DX: M27.2 Inflammatory conditions of jaws (principal); M87.88 Other osteonecrosis, other site; W88.8XXD Exposure to other ionizing radiation, subsequent encounter; Z85.810 Personal history of malignant neoplasm of tongue; G40.909 Epilepsy, unspecified, not intractable, without status epilepticus; Z79.899 Other long term (current) drug therapy
CPT/HCPCS: 99183; G0277

== ENCOUNTER → 2024-11-28 08:47 | Outpatient (CLI) | payer MEDICARE, SELFPAY ==
[2023-06-04 14:46] VITALS: BMI 24.7
== END ==
PROVIDERS: PCP Family Medicine; Referring Provider Family Medicine; Visit Provider Physician Assistant
DX: M27.2 Inflammatory conditions of jaws (principal); M87.88 Other osteonecrosis, other site; W88.8XXD Exposure to other ionizing radiation, subsequent encounter; G40.909 Epilepsy, unspecified, not intractable, without status epilepticus; Z79.899 Other long term (current) drug therapy
CPT/HCPCS: 99183; G0277

== ENCOUNTER → 2024-12-02 08:24 | Outpatient (CLI) | payer MEDICARE, SELFPAY ==
[2023-06-04 14:46] VITALS: BMI 24.7
== END ==
PROVIDERS: PCP Family Medicine; Referring Provider Family Medicine; Visit Provider Surgery
DX: M27.2 Inflammatory conditions of jaws (principal); M87.88 Other osteonecrosis, other site; W88.8XXD Exposure to other ionizing radiation, subsequent encounter; Z85.810 Personal history of malignant neoplasm of tongue; G40.909 Epilepsy, unspecified, not intractable, without status epilepticus; Z79.899 Other long term (current) drug therapy
CPT/HCPCS: 99183; G0277

== ENCOUNTER → 2024-12-03 09:12 | Outpatient (CLI) | payer MEDICARE, SELFPAY ==
[2023-06-04 14:46] VITALS: BMI 24.7
== END ==
PROVIDERS: PCP Family Medicine; Referring Provider Family Medicine; Visit Provider Surgery
DX: M27.2 Inflammatory conditions of jaws (principal); M87.88 Other osteonecrosis, other site; W88.8XXD Exposure to other ionizing radiation, subsequent encounter; G40.909 Epilepsy, unspecified, not intractable, without status epilepticus; Z79.899 Other long term (current) drug therapy; Z85.810 Personal history of malignant neoplasm of tongue
CPT/HCPCS: 99183; G0277

== ENCOUNTER → 2024-12-04 08:39 | Outpatient (CLI) | payer MEDICARE, SELFPAY ==
[2023-06-04 14:46] VITALS: BMI 24.7
== END ==
PROVIDERS: PCP Family Medicine; Referring Provider Family Medicine; Visit Provider Surgery
DX: M27.2 Inflammatory conditions of jaws (principal); M87.88 Other osteonecrosis, other site; W88.8XXD Exposure to other ionizing radiation, subsequent encounter; Z85.810 Personal history of malignant neoplasm of tongue; G40.909 Epilepsy, unspecified, not intractable, without status epilepticus; Z79.899 Other long term (current) drug therapy
CPT/HCPCS: 99183; G0277

== ENCOUNTER → 2024-12-05 09:56 | Outpatient (CLI) | payer MEDICARE, SELFPAY ==
[2023-06-04 14:46] VITALS: BMI 24.7
== END ==
PROVIDERS: PCP Family Medicine; Referring Provider Family Medicine; Visit Provider Surgery
DX: M27.2 Inflammatory conditions of jaws (principal); M87.88 Other osteonecrosis, other site; W88.8XXD Exposure to other ionizing radiation, subsequent encounter; Z85.810 Personal history of malignant neoplasm of tongue; G40.909 Epilepsy, unspecified, not intractable, without status epilepticus; Z79.899 Other long term (current) drug therapy
CPT/HCPCS: 99183; G0277

== ENCOUNTER → 2024-12-08 09:23 | Outpatient (CLI) | payer MEDICARE, SELFPAY ==
[2023-06-04 14:46] VITALS: BMI 24.7
== END ==
PROVIDERS: PCP Family Medicine; Referring Provider Family Medicine; Visit Provider Surgery
DX: M27.2 Inflammatory conditions of jaws (principal); M87.88 Other osteonecrosis, other site; W88.8XXD Exposure to other ionizing radiation, subsequent encounter; Z85.810 Personal history of malignant neoplasm of tongue; G40.909 Epilepsy, unspecified, not intractable, without status epilepticus; Z79.899 Other long term (current) drug therapy
CPT/HCPCS: 99183; G0277

== ENCOUNTER → 2024-12-09 13:22 | Outpatient (CLI) | payer MEDICARE, SELFPAY ==
[2023-06-04 14:46] VITALS: BMI 24.7
== END ==
LOC: WC 13:28
PROVIDERS: PCP Family Medicine; Referring Provider Family Medicine; Visit Provider Surgery
DX: M27.2 Inflammatory conditions of jaws (principal); M87.88 Other osteonecrosis, other site; W88.8XXD Exposure to other ionizing radiation, subsequent encounter; Z85.810 Personal history of malignant neoplasm of tongue; G40.909 Epilepsy, unspecified, not intractable, without status epilepticus; Z79.899 Other long term (current) drug therapy
CPT/HCPCS: 99183; G0277

== ENCOUNTER → 2024-12-10 09:40 | Outpatient (CLI) | payer MEDICARE, SELFPAY ==
[2023-06-04 14:46] VITALS: BMI 24.7
== END ==
LOC: WC 09:41
PROVIDERS: PCP Family Medicine; Referring Provider Family Medicine; Visit Provider Surgery
DX: M27.2 Inflammatory conditions of jaws (principal); M87.88 Other osteonecrosis, other site; W88.8XXD Exposure to other ionizing radiation, subsequent encounter; Z85.810 Personal history of malignant neoplasm of tongue; G40.909 Epilepsy, unspecified, not intractable, without status epilepticus; Z79.899 Other long term (current) drug therapy
CPT/HCPCS: 99183; G0277

== ENCOUNTER → 2024-12-11 08:54 | Outpatient (CLI) | payer MEDICARE, SELFPAY ==
[2023-06-04 14:46] VITALS: BMI 24.7
== END ==
PROVIDERS: PCP Family Medicine; Referring Provider Family Medicine; Visit Provider Surgery
DX: M27.2 Inflammatory conditions of jaws (principal); M87.88 Other osteonecrosis, other site; W88.8XXD Exposure to other ionizing radiation, subsequent encounter; Z85.810 Personal history of malignant neoplasm of tongue; G40.909 Epilepsy, unspecified, not intractable, without status epilepticus; Z79.899 Other long term (current) drug therapy
CPT/HCPCS: 99183; G0277

== ENCOUNTER → 2024-12-11 13:20 | Outpatient (CLI) | payer MEDICARE, SELFPAY ==
[2023-06-04 14:46] VITALS: BMI 24.7
[2024-12-11 14:59] LABS: Add Manual Diff / Slide Review NO; Basophils Absolute Auto 0 /uL (0-100); Basophils Percent Auto 0.6 % (0-2); Eosinophils Absolute Auto 200 /uL (0-450); Eosinophils Percent Auto 4.9 % (2-4); Hematocrit 35.5 % (41-53); Hemoglobin 11.5 g/dL (13.5-17.5); Lymphocytes Absolute Auto 1200 /uL (1100-4500); Lymphocytes Percent Auto 30.9 % (25-40); Mean Corpuscular HGB Conc 32.6 % (30-36); Mean Corpuscular Hemoglobin 26.8 PG (26-34); Mean Corpuscular Volume 82.4 fL (80-100); Monocytes Absolute Auto 500 /uL (0-900); Monocytes Percent Auto 12.5 % (3-14); Neutrophils Absolute Auto 2000 /uL (1500-7000); Neutrophils Percent Auto 51.1 % (50-75); Platelet Count 164 X10^3/uL (150-400)
[2024-12-11 15:08] LABS: Hemoglobin A1C% w Est Avg Glu 5.7 % (4.0-6.0)
[2024-12-11 15:19] LABS: Alanine Aminotransferase 28 IU/L (<50); Albumin 4.6 g/dL (3.5-5.0); Alkaline Phosphatase 113 U/L (38-126); Aspartate Aminotransferase 29 IU/L (17-59); BUN Creatinine Ratio 25.8 (6-22); Bilirubin Total 1.1 mg/dL (0.2-1.3); Blood Urea Nitrogen 17 mg/dL (9-20); Calcium 9.7 mg/dL (8.4-10.2); Carbon Dioxide 27 mmol/L (22-32); Chloride 104 mmol/L (98-107); Cholesterol 151 mg/dL (140-199); Estimated Glomerular Filt Rate > 60 mL/min (>60); Globulin 2.3 g/dL (1.7-4.1); Glucose 102 mg/dL (70-99); HDL Cholesterol 73 mg/dL (40-60); HEMOLYSIS < 15 (0-50); LDL Cholesterol Calculated 66 mg/dL (<100); Potassium 4.3 mmol/L (3.4-5.1); Sodium 139 mmol/L (137-145); Total Protein 6.9 g/dL (6.3-8.2); Triglycerides 62 mg/dL (35-150)
[2024-12-11 15:50] LABS: Prostate Specific Antigen Scrn 1.23 ng/mL (0.1-4.0)
[2024-12-11 15:52] LABS: TSH w/ Reflex to FT4 < 0.02 uIU/mL (0.47-4.68)
[2024-12-11 16:33] LABS: Free T4, Direct Thyroxine 2.54 ng/dL (0.78-2.19)
== END ==
PROVIDERS: PCP Family Medicine; Referring Provider Family Medicine; Visit Provider Family Medicine
DX: C14.0 Malignant neoplasm of pharynx, unspecified (principal); E03.9 Hypothyroidism, unspecified; R73.9 Hyperglycemia, unspecified; Z12.5 Encounter for screening for malignant neoplasm of prostate; E78.2 Mixed hyperlipidemia; K21.9 Gastro-esophageal reflux disease without esophagitis; G40.909 Epilepsy, unspecified, not intractable, without status epilepticus; M27.2 Inflammatory conditions of jaws; M87.88 Other osteonecrosis, other site; W88.8XXD Exposure to other ionizing radiation, subsequent encounter; Z85.810 Personal history of malignant neoplasm of tongue; Z79.899 Other long term (current) drug therapy
CPT/HCPCS: 36415; 80053; 80061; 83036; 84439; 84443; 85025; G0103; G0277

== ENCOUNTER → 2024-12-12 07:10 | Outpatient (CLI) | payer MEDICARE, SELFPAY ==
[2023-06-04 14:46] VITALS: BMI 24.7
[2024-12-12 08:00] LABS: Creatinine Urine Random 142.32 mg/dL
[2024-12-12 08:06] LABS: Microalbumin Urine Random 0.8 mg/dL (0-1.6)
== END ==
PROVIDERS: PCP Family Medicine; Referring Provider Family Medicine; Visit Provider Family Medicine
DX: E03.9 Hypothyroidism, unspecified (principal); E78.2 Mixed hyperlipidemia; C14.0 Malignant neoplasm of pharynx, unspecified; K21.9 Gastro-esophageal reflux disease without esophagitis; R73.9 Hyperglycemia, unspecified; G40.909 Epilepsy, unspecified, not intractable, without status epilepticus
CPT/HCPCS: 82043; 82570

== ENCOUNTER → 2024-12-12 15:05 | Outpatient (CLI) | payer MEDICARE, SELFPAY ==
[2023-06-04 14:46] VITALS: BMI 24.7
== END ==
PROVIDERS: PCP Family Medicine; Referring Provider Family Medicine; Visit Provider Physician Assistant
DX: M27.2 Inflammatory conditions of jaws (principal); M87.88 Other osteonecrosis, other site; W88.8XXD Exposure to other ionizing radiation, subsequent encounter; Z85.810 Personal history of malignant neoplasm of tongue; G40.909 Epilepsy, unspecified, not intractable, without status epilepticus; Z79.899 Other long term (current) drug therapy
CPT/HCPCS: 99183; G0277

== ENCOUNTER → 2024-12-15 09:03 | Outpatient (CLI) | payer MEDICARE, SELFPAY ==
[2023-06-04 14:46] VITALS: BMI 24.7
== END ==
LOC: WC 09:04
PROVIDERS: PCP Family Medicine; Referring Provider Family Medicine; Visit Provider Surgery
DX: M27.2 Inflammatory conditions of jaws (principal); M87.88 Other osteonecrosis, other site; W88.8XXD Exposure to other ionizing radiation, subsequent encounter; Z85.810 Personal history of malignant neoplasm of tongue; G40.909 Epilepsy, unspecified, not intractable, without status epilepticus; Z79.899 Other long term (current) drug therapy
CPT/HCPCS: 99183; G0277

== ENCOUNTER → 2024-12-22 10:39 | Outpatient (CLI) | payer MEDICARE, SELFPAY ==
[2023-06-04 14:46] VITALS: BMI 24.7
== END ==
LOC: WC 10:40
PROVIDERS: PCP Family Medicine; Referring Provider Family Medicine; Visit Provider Surgery
DX: M27.2 Inflammatory conditions of jaws (principal); M87.88 Other osteonecrosis, other site; W88.8XXD Exposure to other ionizing radiation, subsequent encounter; Z85.810 Personal history of malignant neoplasm of tongue; G40.909 Epilepsy, unspecified, not intractable, without status epilepticus; Z79.899 Other long term (current) drug therapy
CPT/HCPCS: 99183; G0277

== ENCOUNTER → 2024-12-23 10:06 | Outpatient (CLI) | payer MEDICARE, SELFPAY ==
[2023-06-04 14:46] VITALS: BMI 24.7
== END ==
LOC: WC 10:07
PROVIDERS: PCP Family Medicine; Referring Provider Family Medicine; Visit Provider Surgery
DX: M27.2 Inflammatory conditions of jaws (principal); M87.88 Other osteonecrosis, other site; W88.8XXD Exposure to other ionizing radiation, subsequent encounter; Z85.810 Personal history of malignant neoplasm of tongue; G40.909 Epilepsy, unspecified, not intractable, without status epilepticus; Z79.899 Other long term (current) drug therapy
CPT/HCPCS: 99183; G0277

== ENCOUNTER → 2024-12-24 10:35 | Outpatient (CLI) | payer MEDICARE, SELFPAY ==
[2023-06-04 14:46] VITALS: BMI 24.7
== END ==
LOC: WC 10:36
PROVIDERS: PCP Family Medicine; Referring Provider Family Medicine; Visit Provider Surgery
DX: M27.2 Inflammatory conditions of jaws (principal); M87.88 Other osteonecrosis, other site; W88.8XXD Exposure to other ionizing radiation, subsequent encounter; Z85.810 Personal history of malignant neoplasm of tongue; G40.909 Epilepsy, unspecified, not intractable, without status epilepticus; Z79.899 Other long term (current) drug therapy
CPT/HCPCS: 99183; G0277

== ENCOUNTER → 2024-12-25 11:07 | Outpatient (CLI) | payer MEDICARE, SELFPAY ==
[2023-06-04 14:46] VITALS: BMI 24.7
--- NOTE | 2024-12-25 11:08 | DI.MRI.S_ITS ---
PROCEDURE: MR HEAD/BRAIN WO/W CON INDICATIONS: new headaches, vertigo, lightheadedness TECHNIQUE: Noncontrast axial T1 spin echo, axial T2 fast spin echo, sagittal and axial FLAIR, coronal T2 fast spin echo, axial gradient echo, axial diffusion and ADC through the brain. After the administration of contrast, axial and coronal and sagittal T1 spin echo with fat saturation through the brain. COMPARISON: [facility], CT, CT FACIAL BONES W CON, 06/12/2024, 6:33. [facility], MR, MR IAC (BRAIN) WWO CON, 05/30/2023, 14:54. FINDINGS: Image quality: Excellent. CSF spaces: Basal cisterns are patent. No extra-axial fluid collections. Ventricles are normal in size and shape. Brain: No midline shift. No intracranial bleeds or masses. No abnormal intracranial enhancement. There is cerebral volume loss for age. There is periventricular white matter chronic small vessel ischemic change. The brainstem appears normal. Diffusion-weighted images demonstrate no acute infarct. No chronic ischemic insults. Normal intravascular flow voids are present. 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 The corpus callosum again appears thin. 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 There is a prominent vein seen within the central this anomaly. 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 Skull and face: Calvarial marrow is normal in signal. Right orbital floor postoperative change is seen. Sinuses: Moderate mucosal thickening is seen within the right maxillary sinus. Milder mucosal thickening is seen elsewhere within the paranasal sinuses. No abnormal fluid is seen within the mastoid air cells. IMPRESSION: No imaging explanation found for the patient's presenting history of headache. No masses or abnormal enhancement can be seen. 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 Additional findings: Right orbital floor postoperative change Focal right maxillary sinus disease Dictated by: Peterson Hernadez M.D. on 12/26/2024 at 20:44 Approved by: Peterson Hernadez M.D. on 12/26/2024 at 20:49
== END ==
PROVIDERS: PCP Family Medicine; Referring Provider Family Medicine; Visit Provider Family Medicine
DX: C14.0 Malignant neoplasm of pharynx, unspecified (principal); G40.909 Epilepsy, unspecified, not intractable, without status epilepticus; Q04.8 Other specified congenital malformations of brain; E03.9 Hypothyroidism, unspecified; E78.2 Mixed hyperlipidemia; R51.9 Headache, unspecified; R42 Dizziness and giddiness; K21.9 Gastro-esophageal reflux disease without esophagitis; R73.9 Hyperglycemia, unspecified; J32.0 Chronic maxillary sinusitis
CPT/HCPCS: 70553; A9579

== ENCOUNTER → 2024-12-25 11:28 | Outpatient (CLI) | payer MEDICARE, SELFPAY ==
[2023-06-04 14:46] VITALS: BMI 24.7
== END ==
PROVIDERS: PCP Family Medicine; Referring Provider Family Medicine; Visit Provider Surgery
DX: M27.2 Inflammatory conditions of jaws (principal); M87.88 Other osteonecrosis, other site; W88.8XXA Exposure to other ionizing radiation, initial encounter; Z85.810 Personal history of malignant neoplasm of tongue; G40.909 Epilepsy, unspecified, not intractable, without status epilepticus; Z79.899 Other long term (current) drug therapy
CPT/HCPCS: 99183; 99211; 99213; G0277

== ENCOUNTER → 2024-12-26 14:11 | Outpatient (CLI) | payer MEDICARE, SELFPAY ==
[2023-06-04 14:46] VITALS: BMI 24.7
== END ==
LOC: WC 14:11
PROVIDERS: PCP Family Medicine; Referring Provider Family Medicine; Visit Provider Physician Assistant
DX: M27.2 Inflammatory conditions of jaws (principal); M87.88 Other osteonecrosis, other site; W88.8XXD Exposure to other ionizing radiation, subsequent encounter; Z85.810 Personal history of malignant neoplasm of tongue; G40.909 Epilepsy, unspecified, not intractable, without status epilepticus; Z79.899 Other long term (current) drug therapy
CPT/HCPCS: 99183; G0277

== ENCOUNTER → 2024-12-29 08:18 | Outpatient (CLI) | payer MEDICARE, SELFPAY ==
[2023-06-04 14:46] VITALS: BMI 24.7
== END ==
LOC: WC 08:19
PROVIDERS: PCP Family Medicine; Referring Provider Family Medicine; Visit Provider Physician Assistant
DX: M27.2 Inflammatory conditions of jaws (principal); M87.88 Other osteonecrosis, other site; W88.8XXD Exposure to other ionizing radiation, subsequent encounter; Z85.810 Personal history of malignant neoplasm of tongue; G40.909 Epilepsy, unspecified, not intractable, without status epilepticus; Z79.899 Other long term (current) drug therapy
CPT/HCPCS: 99183; G0277

== ENCOUNTER → 2024-12-30 09:40 | Outpatient (CLI) | payer MEDICARE, SELFPAY ==
[2023-06-04 14:46] VITALS: BMI 24.7
== END ==
PROVIDERS: PCP Family Medicine; Referring Provider Family Medicine; Visit Provider Surgery
DX: M27.2 Inflammatory conditions of jaws (principal); M87.88 Other osteonecrosis, other site; W88.8XXD Exposure to other ionizing radiation, subsequent encounter; Z85.810 Personal history of malignant neoplasm of tongue; G40.909 Epilepsy, unspecified, not intractable, without status epilepticus; Z79.899 Other long term (current) drug therapy
CPT/HCPCS: 99183; G0277

== ENCOUNTER → 2025-02-16 10:35 | Outpatient (CLI) | payer MEDICARE, SELFPAY ==
[2023-06-04 14:46] VITALS: BMI 24.7
[2025-02-16 11:21] LABS: Add Manual Diff / Slide Review NO; Hematocrit 37.7 % (41-53); Hemoglobin 12.3 g/dL (13.5-17.5); Lymphocytes Absolute Auto 1100 /uL (1100-4500); Mean Corpuscular HGB Conc 32.6 % (30-36); Mean Corpuscular Hemoglobin 26.8 PG (26-34); Mean Corpuscular Volume 82.3 fL (80-100); Platelet Count 219 X10^3/uL (150-400)
[2025-02-16 12:48] LABS: TSH w/ Reflex to FT4 < 0.02 uIU/mL (0.47-4.68)
[2025-02-16 17:59] LABS: Free T4, Direct Thyroxine 2.20 ng/dL (0.78-2.19)
== END ==
PROVIDERS: Family Provider Family Medicine; PCP Family Medicine; Referring Provider Family Medicine; Visit Provider Dentist Oral and Maxillofacial Surgery
DX: E03.9 Hypothyroidism, unspecified (principal); L02.01 Cutaneous abscess of face; R22.0 Localized swelling, mass and lump, head
CPT/HCPCS: 36415; 84439; 84443; 85025

== ENCOUNTER 2025-03-18 08:15 | Outpatient (RCR) | payer MEDICARE, SELFPAY ==
[2023-06-04 14:46] VITALS: BMI 24.7
--- NOTE | 2025-02-11 13:12 | ST.OPIE ---
Visit Care Team Role Provider Type Cristi Hunter MD Family Provider Physician Primary Care Provider Specialty: Family Practice Address: [address] [place] [address], [id number] Email: [email or web address] Cesar Hayes MD Attending Provider Physician Referring Provider Specialty: Ear, Nose, Throat Address: [address] [place] [address], [id number] Email: [email or web address] Speech-Language Pathology Initial Evaluation INTERNET SECURITY SPECIALIST Clinical Swallow Evaluation Start: 02/11/25 09:27 Freq: Status: Active Protocol: Document 02/11/25 09:28 SS (Rec: 02/11/25 09:38 SS Desktop) Clinical Swallow Evaluation Session Time Visit Start Time 08:15 Visit Stop Time 09:10 Total Visit Minutes 55 Visit Information Visit Number 1 Plan of Care Dates 02/11/25-05/14/25 Insurance [employer] Medicare (no visit limit) Information Referral Referring Provider Dr. Cesar Hayes (ENT at [facility]) Reason for Referral Chronic oropharyngeal and pharyngoesophageal dysphagia Setting Assessment Location Outpatient Care Visit Type Note Type Initial evaluation Next Note Type Next Note Type Treatment Note Patient Information Identification Type Name History Pt is a 75-year-old male, referred for a speech therapy assessment by Dr. 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 BACKGROUND/MEDICAL HISTORY Social History: Pt lives with spouse and is retired. Onset Date: Squamous cell carcinoma of base of tongue diagnosed in 2002 with subsequent resection and chemoradiation. 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 Pt has had multiple MBSS done, in 2015, 2018, and most recently on 01/15/25 at [facility]. INTERNET SECURITY SPECIALIST reached out to medical records to obtain complete reports. Pt reports participating in INTERNET SECURITY SPECIALIST services about 10 years ago. He completed vital stim with minimal improvement. He also reported botox dilation of his UES in 2014 with minimal improvement. Prior Medical History: GERD, hx of carcinoma of base of tongue and chemoradiation, epilepsy, hypothyroidism, hyperlipidemia, back fusion ? Predisposing Dysphagia Risk Factors: hx of squamous cell carcinoma of the base of tongue, hx of chemoradiation ? Signs of Possible Chronic Dysphagia: Pt report of swallowing difficulty, unintentional weight loss, hx of chronic dysphagia since 2002 ? Precipitating Dysphagia Risk Factors: invasive squamous cell carcinoma + hx of chemoradiation treatment ? Present Predictors of Aspiration Pneumonia (Mireille et al., 1998): GERD, aspiration visualized on most recent MBSS, oral health (dental surgeries to remove bone and tooth particles from jaw) Subjective Pt arrived to the evaluation on time and attended Observations independently. Pt was motivated and engaged throughout the evaluation. Reported by Patient/Caregiver Pain/Discomfort Yes Location Neck Other Symptoms Choking,Coughing,Difficulty swallowing liquids, Difficulty swallowing pills,Difficulty swallowing solids,Food gets stuck,History of aspiration or pneumonia,Weight loss Comment PATIENT OBSERVATIONS ? Patient endorses changes in swallowing around 2002, worsening in the past year. ? He describes swallowing as feeling food stuck in his throat. He occasionally feels that food becomes trapped in his throat and this causes a choking sensation. He also regurgitated food through his nasal cavity when he attempts to clear his throat or cough. ? He is restricting foods at this time and reports reduced PO intake. ? He reports the sensation of pills and solids becoming stuck. This sensation does not clear with multiple swallows or liquid wash. ? He reports unintentional weight loss of approximately 5-10 lbs over the past year. ? He endorses decreased appetite and reduced sense of taste. He denies hx pf PNA. ? He reports consistent coughing/choking with PO intake . This is somewhat reduced when he attempts to hold his breath, likely due to forced adduction of his vocal folds, increasing airway protection. BASELINE LEVEL OF FUNCTION Solids: Minced and moist (occasionally eats regular textures, but prefers to add sauce. gravy, etc) Liquids: Thin Medications: Whole with puree carrier Functional Oral Intake Scale (FOIS): FOIS level 5 ? FOIS Mcdonald: Level 1 = no oral intake, Level 2 = tube dependent with minimal/inconsistent oral intake, Level 3 = tube supplements with consistent oral intake, Level 4 = total oral intake of a single consistency, Level 5 = total oral intake of multiple consistencies requiring special preparation, Level 6 = total oral intake with no special preparation, but must avoid specific foods or liquid items, Level 7 = total oral intake with no restrictions Current Diet Minced & Moist (IDDSI 5),Soft & Bite-sized (IDDSI 6) Baseline Feeding Independent in self-feeding Method Type of Patient The Eating Assessment Tool (EAT-10), The Dutch Leander Questionnaire (e.g., Dysphagia Inventory EAT-10, MDADI, etc. ) Results The Eating Assessment Tool (EAT-10) was administered. This tool is a symptom-specific outcome instrument for dysphagia. It consists of ten statements regarding the patient?s swallow and the patient scores each on a scale of 0-4, with 0 indicating no problem and 4 indicating a severe problem. A score of >3/40 could indicate a swallowing impairment that warrants further assessment/treatment. The patient scored a 37/40, indicating the need for further assessment. The .Margo. Leander Dysphagia Inventory is a questionnaire designed for evaluating the impact of dysphagia of QOL for patients with head and neck cancer . The patient is asked to rate each statement from ? strongly agree? to ?strongly disagree?. Questionnaire administered on this date. Results are as follows. Global Score: 1/5 Global score ranges from 1 (extremely low functioning) to 5 (high functioning) Composite Score: 31/100 Composite score ranges from 20 (extremely low functioning) to 100 (high functioning) The IDDSI Framework Protocol: IDDSI.1 Objective Assessment Mental Status Alert,Responsive,Cooperative Oral Integrity Sores/Lesions,Xerostomia/Dry mouth Dentition Missing teeth Lip Function Within normal limits Tongue Function Mild impairment Tongue Protrusion Reduced range of motion,Reduced strength Tongue Retraction Reduced range of motion,Reduced strength Tongue Reduced range of motion,Reduced strength Lateralization Jaw Function Mild impairment Observation of Jaw Deviates to the left at Rest Jaw Opening Reduced range of motion Jaw Closing Within normal limits Jaw Lateralization Deviates to the left,Reduced range of motion Jaw Protrusion Deviates to the left,Reduced range of motion Jaw Retraction Within normal limits Hard/Soft Palate Severe impairment Function Observations of Hard Abnormal uvula /Soft Palate Nasality Hypernasal Comment Pt?s oral health is fair. Pt has his own dentition with dental work noted. The pt reports brushing his teeth 1x daily, although he expresses he sometimes misses. Recent jaw surgery done with large gaping hole in right lower jaw noted, in which pt notes debris gets caught. Oral health status is one of the three pillars of aspiration pneumonia, with research showing that poor oral health increases the risk of pulmonary compromise associated with aspiration. 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 Suspect lack of closure of nasal cavity during swallow given regurgitation. Large buccal hole noted in left cheek near jaw. Pt reports he had a jaw surgery recently during which fragments of necrotic bone and teeth were removed. CRANIAL NERVE EXAM CN V (Trigeminal): intact b/l CN VII (Facial): intact b/l CN IX/X (Glossopharyngeal/Vagus): intact b/l CN XII (Hypoglossal): impaired b/l given reduced ROM and strength with all movement Food and Liquid Trials Results Did not administer PO trials during initial evaluation given high aspiration risk and pt expressing he would like to avoid PO intake as he has a dental appointment to follow up on jaw surgery immediately after evaluation. Per brief note from Letty Lu CCC-INTERNET SECURITY SPECIALIST following MBSS on 01/15/25, ?pt presents with significant oropharyngeal and pharyngoesophageal dysphagia characterized by diminished swallowing efficiency resulting in frequent airway invasion and residuals in the pharynx.? Pt also presented with ? limited abutting of the tongue base and the superior pharyngeal constrictor resulting in persistent residuals in the pharynx requiring many swallows to clear.? Volitional breath holding was noted to facilitate laryngeal vestibule closure and reduce frequency of aspiration. Regurgitation occurred after swallow indicating inadequate velopharyngeal closure. 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 INTERNET SECURITY SPECIALIST to obtain full report for specific impairments noted during oral, pharyngeal, and esophageal phases of swallow and visualization of penetration and aspiration of different consistencies visualized during MBSS. The IDDSI Framework Protocol: IDDSI.1 Findings Swallowing Function Oropharyngeal phase dysphagia Swallowing Function Pharyngoesophageal dysphagia Comments Severity of Swallow Severely impaired Impairment Contributing Factors Impaired oral-pharyngeal transport,Reduced laryngeal to Swallow excursion,Impaired airway protection,Excessive Impairment pharyngeal residue Prognosis Guarded Based on Cognitive status,Family support,Age,Duration of symptoms/severity Comment Pt presents with significant oropharyngeal and pharyngoesophageal dysphagia s/p chemoradiation and resection/dissection of squamous cell carcinoma of base of tongue in 2002. 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 Based on patient?s fair oral health status and overall immune function, pt currently remains at a moderate risk of pulmonary compromise associated with aspiration at this time. Swallow prognosis is guarded given latency since dysphagia onset, though pt is highly motivated to participate in treatment and has strong family support. Pt appears to be at a moderate risk for malnutrition/dehydration. Recommend pt continue with diet modification (mined and moist diet texture). Anticipate to obtain further information re: swallow pathophysiology from MBSS report from 01/15/25 once it is available in order to determine the safest diet, effective compensatory strategies, and potential rehabilitation exercises for therapy. Pt appears to be a good candidate for outpatient speech therapy services, targeting both oral phase efficiency and pharyngeal phase efficiency and safety. Rehabilitative exercises may include Effortful swallow, supraglottic, and Super-supraglottic, pending INTERNET SECURITY SPECIALIST receiving full MBSS report. Impact on Safety and Risk for aspiration,Risk for inadequate nutrition/ Functioning hydration Recommendations Instrumental No Assessment Swallowing Treatment Yes Frequency 1-2x/week Duration 3 months Recommended Solids Minced & Moist (IDDSI 5) Recommended Liquids Thin (IDDSI 0) Other Diet modifications: continue with current diet Recommendations utilizing slow rate, small bites and sips, multiple swallows, and adding sauce, gravy, etc) Risk management: upright positioning, thorough oral care before any type of oral intake Late-term effects of HNC and XRT: education regarding continued PO intake, implementation/completion of a swallowing home exercise program, training and coaching in the implementation/completion of tongue, jaw, neck, and larynx stretching protocol as indicated. This is to address the development of xerostomia, fibrosis, and weakness/atrophy throughout the swallowing mechanism due to reduced appetite and limited PO intake. Specialist referrals: further evaluation of cricopharyngeal dilatation vs surgical consultation for CP myotomy if deemed medically/surgically appropriate. Pt may also benefit from obturator prosthesis for velopharyngeal insufficiency if deemed appropriate by ENT. Therapy: Improve pharyngeal strength and laryngeal vestibule closure to work towards a more consistent PO diet. INTERNET SECURITY SPECIALIST requested pt records from [facility] to be faxed; results to inform POC. Safety Precautions/ Reduce distractions,Remain upright (90 degrees) during Swallowing all oral intake,Upright position at least 30 minutes Recommendations after meals,Small bites and sips when eating,Slow rate; swallow between bites,Multiple swallows,Alternate liquids and solids,Strict oral care after intake,Check for pocketing Medication Whole in Carrier Recommendations Referrals Recommended Dietary,Otolaryngology/ENT Referrals Education Patient/Caregiver Described results of evaluation,Patient expressed Education understanding of evaluation,Patient expressed agreement with goals & treatment plans Goals Short-term Goals 1. Pt will complete swallowing exercises accurately within 10 weeks with 100% accuracy independently in order to improve airway protection, effective cough, pharyngeal contraction, and laryngeal vestibule closure , including, but not limited to: effortful swallow, Chin Tuck Against Resistance (CTAR), supraglottic swallow, supersupraglottic swallow, and expiratory muscle strength training (EMST). 2. Pt will participate in HEP 4-5 x a week targeting oropharyngeal musculature for improved swallowing safety and efficiency per pt report. 3. Pt will participate in repeat MBSS as indicated to further assess swallowing function and improvement from dysphagia rehabilitative exercises. Long-term Goals 1. Pt will improve self-perception of swallowing from a baseline of 37/40 on the EAT-10 following participation in INTERNET SECURITY SPECIALIST skilled services. 2. Pt will improve swallow function through recommended exercises and compensatory strategies in order to advance to FOIS 6 (total oral intake with no special preparation, but must avoid specific foods or liquid items) to allow for safe consumption of daily meals without s/sx of aspiration.
--- NOTE | 2025-02-11 13:13 | ST.OPPOC ---
Physical, Occupational & Speech Therapy At [facility] Visit Care Team Role Provider Type Cristi Hunter MD Family Provider Physician Primary Care Provider Address: [address] [place] [address], [id number] Cesar Hayes MD Attending Provider Physician Referring Provider Address: [address] [place] [address], [id number] Speech Pathology Plan of Care Plan of Care Dates 02/11/25-05/14/[address] Cesar Hayes (ENT at [facility]) Patient History Pt is a 75-year-old male, referred for a speech therapy assessment by Dr. 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 BACKGROUND/MEDICAL HISTORY Social History: Pt lives with spouse and is retired. Onset Date: Squamous cell carcinoma of base of tongue diagnosed in 2002 with subsequent resection and chemoradiation. 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 Pt has had multiple MBSS done, in 2015, 2018, and most recently on 01/15/25 at [facility]. WASH OIL PUMP OPERATOR HELPER reached out to medical records to obtain complete reports. Pt reports participating in WASH OIL PUMP OPERATOR HELPER services about 10 years ago. He completed vital stim with minimal improvement. He also reported botox dilation of his UES in 2014 with minimal improvement. Prior Medical History: GERD, hx of carcinoma of base of tongue and chemoradiation, epilepsy, hypothyroidism, hyperlipidemia, back fusion ? Predisposing Dysphagia Risk Factors: hx of squamous cell carcinoma of the base of tongue, hx of chemoradiation ? Signs of Possible Chronic Dysphagia: Pt report of swallowing difficulty, unintentional weight loss, hx of chronic dysphagia since 2002 ? Precipitating Dysphagia Risk Factors: invasive squamous cell carcinoma + hx of chemoradiation treatment ? Present Predictors of Aspiration Pneumonia ( Mireille et al., 1998): GERD, aspiration visualized on most recent MBSS, oral health ( dental surgeries to remove bone and tooth particles from jaw) Short-term Goals 1. Pt will complete swallowing exercises accurately within 10 weeks with 100% accuracy independently in order to improve airway protection, effective cough, pharyngeal contraction, and laryngeal vestibule closure, including, but not limited to: effortful swallow , Chin Tuck Against Resistance (CTAR), supraglottic swallow, supersupraglottic swallow, and expiratory muscle strength training (EMST). 2. Pt will participate in HEP 4-5 x a week targeting oropharyngeal musculature for improved swallowing safety and efficiency per pt report. 3. Pt will participate in repeat MBSS as indicated to further assess swallowing function and improvement from dysphagia rehabilitative exercises. Long-term Goals 1. Pt will improve self-perception of swallowing from a baseline of 37/40 on the EAT-10 following participation in WASH OIL PUMP OPERATOR HELPER skilled services. 2. Pt will improve swallow function through recommended exercises and compensatory strategies in order to advance to FOIS 6 (total oral intake with no special preparation, but must avoid specific foods or liquid items) to allow for safe consumption of daily meals without s/sx of aspiration. Comment: Electronically Signed by: ANDIE Aguilera 02/11/25 [id number] If you are in agreement with this Plan of Care, please return a signed and dated copy. I have reviewed this Plan of Care and certify that the skilled therapy services above are required to meet the patient?s needs. Physician Signature Date Printed Name and Credentials Clinical Instructor Signature Printed Name and Credentials
--- NOTE | 2025-02-18 10:46 | ST.IPDYTX ---
Visit Care Team Role Provider Type Cristi Hunter MD Family Provider Physician Primary Care Provider Specialty: Family Practice Address: [address] [place] [address], [id number] Email: [email or web address] Cesar Hayes MD Attending Provider Physician Referring Provider Specialty: Ear, Nose, Throat Address: [address] [place] [address], [id number] Email: [email or web address] ENVELOPE MACHINE OPERATOR Dysphagia Treatment ENVELOPE MACHINE OPERATOR Dysphagia Treatment Start: 02/11/25 09:27 Freq: Status: Active Protocol: Document 02/18/25 10:24 SS (Rec: 02/18/25 10:46 SS Desktop) Dysphagia Treatment Session Time Visit Start Time 08:15 Visit Stop Time 08:58 Total Visit Minutes 43 Visit Information Visit Number 2 Plan of Care Dates 02/11/25-05/14/25 Insurance [employer] Medicare (no visit limit) Information Setting Assessment Location Outpatient Care Visit Type Note Type Treatment Note Next Note Type Next Note Type Treatment Note Patient Information Subjective Pt arrived to the session on time and attended Observations independently. Pt was motivated and engaged throughout. MBSS report received. Treatment Liquids Trialed Thin (IDDSI 0) Solids Trialed Purred (IDDSI 4) Administration Type Tea Spoon,Cup Single Sip,Self-Feeding Oral Strategies Upright at 90 degrees,Controlled Bite/Sip Size, Alternate Liquids/Solids Pharyngeal Sitting Upright (90 deg),Effortful Swallow, Strategies Supersupraglottic Swallow,Small Bites and Sips, Alternate Liquids/Solids Treatment Activities Education re: results of MBSS, safe swallowing strategies, and factors that reduce risk of aspiration pneumonia. Introduced rehabilitative exercises on this date to target oropharyngeal and pharyngoesophageal dysphagia, including effortful swallows and super supraglottic swallow. 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 The IDDSI Framework Protocol: IDDSI.1 Assessment Patient Response to Fair Treatment Rehab Potential Fair Assessment of ENVELOPE MACHINE OPERATOR provided education re: normal swallow anatomy and Improvement physiology and the results of the MBSS. Utilized a visual diagram to improve pt?s understanding. Pt expressed understanding re: results. Educated pt re: recommended safe swallow precautions to reduce the risk of aspiration, including small bites/ sips, slow rate, alternating liquids and solids, upright positioning during PO intake, limiting distractions, and avoiding talking while eating. Additionally provided education in factors to reduce risk of aspiration pneumonia, including oral hygiene and oral health, ambulation, respiratory system, cough function, and health status (uncompromised immune system). Pt verbalized understanding. Introduced rehabilitative exercises on this date to target oropharyngeal and pharyngoesophageal dysphagia to target hyolaryngeal excursion, pharyngeal constriction, epiglottic inversion, and laryngeal vestibule closure for improved swallowing safety and efficiency. Instructed pt in the Effortful Swallow and Super Supraglottic Swallow to improve tongue to palate contact, base of tongue retraction, hyolaryngeal elevation and excursion, pharyngeal constriction, and opening of the upper esophageal sphincter for improved swallowing safety and efficiency. Provided education re : form and goal of the exercise for decreased pharyngeal residue and increased laryngeal vestibule closure. Bolus-driven effortful swallows completed with the following consistencies: 5 ml thin: 1/3 successful swallows; average of 2-3 swallows per bolus. Strong post-swallow cough x2. 5 ml puree: 4/4 successful swallows; average of 3-4 swallows per bolus. Pt benefited from clinician cueing and modeling during the exercise to slow his rate, press his tongue against the roof of his mouth, hold his breath, and bear down. Pt reluctant to complete cough following maneuver as it results in nasal regurgitation. Pt declined to complete further trials, stating ?I don?t think this will help me? 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 ENVELOPE MACHINE OPERATOR provided education re: principles of high intensity and frequency exercise protocol, which pt expressed understanding of. Reviewed HEP at the conclusion of the session, with pt verbalizing understanding. HEP Recommendation: super supraglottic and effortful swallow 30-50 reps with thin liquid, NTL, and/or puree. Pt participated well in the treatment session on this date. Extensive education re: MBSS results, recommendations, and rehabilitative exercises provided. Pt expressed understanding and motivation to participate in HEP. Plan for pt to implement HEP and report back progress in the following session. ENVELOPE MACHINE OPERATOR to contact ENT re: medical management options for velopharyngeal closure and UES opening as these seem to impede bolus flow into the esophagus and result in nasal regurgitation. Continue targeting oropharyngeal and pharyngoesophageal dysphagia at a frequency of once a week given pt report and progress with HEP. Recommendations Recommendations Continue Current Diet Liquids Order Thin (IDDSI 0) Diet Order Minced & Moist (IDDSI 5) Medication Whole in Carrier Recommendations Additional Dietary Single Sips,Controlled Sips Needs Aspiration Precautions Recommended Upright at 90 Degrees,Small Bites/Sips,Effortful Precautions Swallow,Double Swallow,Supersupraglottic Swallow Treatment Plan Appropriate for Yes Continued Therapy Dysphagia Goals STG1. Pt will complete swallowing exercises accurately within 10 weeks with 100% accuracy independently in order to improve airway protection, effective cough, pharyngeal contraction, and laryngeal vestibule closure , including, but not limited to: effortful swallow, Chin Tuck Against Resistance (CTAR), supraglottic swallow, super supraglottic swallow, and expiratory muscle strength training (EMST). STG2. Pt will participate in HEP 4-5 x a week targeting oropharyngeal musculature for improved swallowing safety and efficiency per pt report. STG3. Pt will participate in repeat MBSS as indicated to further assess swallowing function and improvement from dysphagia rehabilitative exercises. LTG1. Pt will improve self-perception of swallowing from a baseline of 37/40 on the EAT-10 following participation in ENVELOPE MACHINE OPERATOR skilled services. LTG2. Pt will improve swallow function through recommended exercises and compensatory strategies in order to advance to FOIS 6 (total oral intake with no special preparation, but must avoid specific foods or liquid items) to allow for safe consumption of daily meals without s/sx of aspiration.
--- NOTE | 2025-02-25 09:35 | ST.IPDYTX ---
Visit Care Team Role Provider Type Cristi Hunter MD Family Provider Physician Primary Care Provider Specialty: Family Practice Address: [address] [place] [address], [id number] Email: [email or web address] Cesar Hayes MD Attending Provider Physician Referring Provider Specialty: Ear, Nose, Throat Address: [address] [place] [address], [id number] Email: [email or web address] PARKING METER INSTALLER Dysphagia Treatment PARKING METER INSTALLER Dysphagia Treatment Start: 02/11/25 09:27 Freq: Status: Active Protocol: Document 02/25/25 09:05 SS (Rec: 02/25/25 09:35 SS Desktop) Dysphagia Treatment Session Time Visit Start Time 08:10 Visit Stop Time 08:55 Total Visit Minutes 45 Visit Information Visit Number 3 Plan of Care Dates 02/11/25-05/14/25 Insurance [employer] Medicare (no visit limit) Information Setting Assessment Location Outpatient Care Visit Type Note Type Treatment Note Next Note Type Next Note Type Treatment Note Patient Information Subjective Pt arrived to the session on time and attended Observations independently. Pt was motivated and engaged throughout. 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 Reviewed use of effortful swallows and super supraglottic swallow during PO intake. Introduced two rehabilitative exercises targeting upper esophageal sphincter opening: Chin Tuck Against Resistance and Shaker. The IDDSI Framework Protocol: IDDSI.1 Assessment Patient Response to Good Treatment Rehab Potential Fair Assessment of Discussed pt observations and concerns since last Improvement treatment session. Pt reported he has been able to complete effortful swallows and super supraglottic maneuvers during all PO intake. However, he is not able to bear down during the super supraglottic maneuver is it causes increased nasal regurgitation due to velopharyngeal insufficiency. Recommended he continue implementing these maneuvers with all PO intake to maximize swallowing efficiency and safety with modifications as needed. Reviewed education re: role of closure of the nasopharynx for minimal escape leading to nasal regurgitation as well as pharyngoesophageal segment opening for minimal obstruction of flow. Utilized visual diagram to explain how loss of soft palate results in escape of bolus to nasal cavity and nostrils and discussed how palatal obturator may be helpful if deemed appropriate by ENT. Additionally, discussed how limited distension and duration of PES opening is leading to obstruction of flow and pharyngeal residue that is then at risk of being aspirated. Recommended pt discuss medical management options of CP myotomy or dilation. Pt expressed understanding of this information and stated he found education helpful in understanding overall swallow function. PARKING METER INSTALLER sent fax and called ENT?s office (VM left) to discuss above medical intervention options. Introduced additional rehabilitative exercises on this date. Introduced isometric and isokinetic Chin Tuck Against Resistance (CTAR) with the goal of strengthening suprahyoid and submental musculature for improved hyolaryngeal elevation and excursion, epiglottic inversion, and UES opening to allow the bolus to flow into the esophagus (Juan Pablo et al., 2022). Provided education re: accurate form for completing the exercise. Provided pt with a ball to complete the exercises. Pt completed isometric CTAR for 20-seconds x 3 reps. He completed isokinetic CTAR 10 reps x 3 sets. One minute of rest completed between each set. 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 Pt benefited from clinician cueing, modeling, and verbal instruction during the task. Pt with good form on this date. Introduced The Shaker exercise, which targets the suprahyoid muscle that elevates the larynx and opens the UES during swallowing to increase UES opening and reduce pharyngeal residue in the pyriform sinuses ( Nick et al., 2009; Sharon et al., 2017). Provided education re: accurate form for completing the exercise . Due to time constraints, di not implement exercise today, but reviewed steps to completing exercise and discussed form. Provided educational handouts for both exercises and reviewed HEP at the end of the session. Recommended he complete supraglottic exercise, rather than super supraglottic given difficulty with bearding down. HEP Recommendation: supraglottic and effortful swallow 30-50 reps with thin liquid, NTL, and/or puree. Isometric CTAR 20 seconds x 3-5 reps (1-minute rest between each), Isokinetic CTAR 10 reps x 3-5 sets (1- minute rest between each). Isometric Shaker 20-30 seconds x 3 reps (1-minute rest between each), Isokinetic Shaker 10 reps x 3 sets (1-minute rest between each). Pt participated well in the treatment session on this date. Extensive education re: ENT management of velopharyngeal closure and UES opening to increase swallowing safety and efficiency. Pt expressed understanding and motivation to participate in HEP. Plan for pt to implement HEP and report back progress in the following session. Advance exercises as appropriate. Continue targeting oropharyngeal and pharyngoesophageal dysphagia at a frequency of once a week given pt report and progress with HEP. Recommendations Recommendations Continue Current Diet Liquids Order Thin (IDDSI 0) Diet Order Minced & Moist (IDDSI 5) Medication Whole in Carrier Recommendations Additional Dietary Single Sips,Controlled Sips Needs Aspiration Precautions Recommended Upright at 90 Degrees,Small Bites/Sips,Effortful Precautions Swallow,Double Swallow,Supersupraglottic Swallow Treatment Plan Appropriate for Yes Continued Therapy Therapy Continue advancing exercises as appropriate. Recommendations Dysphagia Goals STG1. Pt will complete swallowing exercises accurately within 10 weeks with 100% accuracy independently in order to improve airway protection, effective cough, pharyngeal contraction, and laryngeal vestibule closure , including, but not limited to: effortful swallow, Chin Tuck Against Resistance (CTAR), supraglottic swallow, super supraglottic swallow, and expiratory muscle strength training (EMST). STG2. Pt will participate in HEP 4-5 x a week targeting oropharyngeal musculature for improved swallowing safety and efficiency per pt report. STG3. Pt will participate in repeat MBSS as indicated to further assess swallowing function and improvement from dysphagia rehabilitative exercises. LTG1. Pt will improve self-perception of swallowing from a baseline of 37/40 on the EAT-10 following participation in PARKING METER INSTALLER skilled services. LTG2. Pt will improve swallow function through recommended exercises and compensatory strategies in order to advance to FOIS 6 (total oral intake with no special preparation, but must avoid specific foods or liquid items) to allow for safe consumption of daily meals without s/sx of aspiration. Referrals/Other Recommended ENT Consult Referrals
--- NOTE | 2025-03-04 09:54 | ST.IPDYTX ---
Visit Care Team Role Provider Type Cristi Hunter MD Family Provider Physician Primary Care Provider Specialty: Family Practice Address: [address] [place] [address], [address] Email: [email or web address] Cesar Hayes MD Attending Provider Physician Referring Provider Specialty: Ear, Nose, Throat Address: [address] [place] [address], [address] Email: [email or web address] SOLDERING INSPECTOR Dysphagia Treatment SOLDERING INSPECTOR Dysphagia Treatment Start: 02/11/25 09:27 Freq: Status: Active Protocol: Document 03/04/25 09:31 SS (Rec: 03/04/25 09:54 SS Desktop) Dysphagia Treatment Session Time Visit Start Time 08:15 Visit Stop Time 09:00 Total Visit Minutes 45 Visit Information Visit Number 4 Plan of Care Dates 02/11/25-05/14/25 Insurance [employer] Medicare (no visit limit) Information Setting Assessment Location Outpatient Care Visit Type Note Type Treatment Note Next Note Type Next Note Type Treatment Note Patient Information Subjective Pt arrived to the session on time and attended Observations independently. Pt was motivated and engaged throughout. Treatment Solids Trialed Purred (IDDSI 4) Administration Type Tea Spoon,Self-Feeding Oral Strategies Upright at 90 degrees,Controlled Bite/Sip Size, Alternate Liquids/Solids Pharyngeal Sitting Upright (90 deg),Double Swallow,Supraglottic Strategies Swallow,Small Bites and Sips,Alternate Liquids/Solids Treatment Activities Continued education re: ENT consultation for cricopharyngeous dilation vs CP myotomy as well as palatal obturator. Pt has not discussed these medical/ surgical options with PCP or ENT yet. No reply from ENT has been received. SOLDERING INSPECTOR sent message to PCP via pt's chart requesting ENT consult to discuss these options ( and other potential options) if deemed medically/ surgically appropriate. Treatment continues to target potentially maximizing oropharynx range of motion of base of tongue, superior pharyngeal constrictor, and cricopharyngeous in order to enhance swallowing safety and efficiency. Implemented supraglottic swallow and Chin Tuck Against Resistance exercises. Updated and reviewed HEP at the end of the session. The IDDSI Framework Protocol: IDDSI.1 Assessment Patient Response to Good Treatment Rehab Potential Fair Assessment of Discussed pt observations and concerns since last Improvement treatment session. Pt has been completing supraglottic maneuver during all PO intake, though has not noticed an improvement to swallowing function and continues to experience frequent nasal regurgitation, bolus sticking in his throat, and coughing. He has been completing CTAR, and has noted feeling good resistance with this exercise. 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 SOLDERING INSPECTOR recommended he stop completing the Shaker, which he was agreeable to. Discussed importance of discussing above medical/surgical options with ENT to improve pharyngeal clearance and reduce occurrence of aspiration. Pt agreeable and message to sent to PCP. SOLDERING INSPECTOR will follow-up as needed. Continued implementing isometric and isokinetic Chin Tuck Against Resistance (CTAR) with the goal of strengthening suprahyoid and submental musculature for improved hyolaryngeal elevation and excursion, epiglottic inversion, and UES opening to allow the bolus to flow into the esophagus (Juan Pablo et al., 2023). Pt has been preferring to use own fist to complete the exercise over a ball. He completed isometric CTAR for 40-seconds x 3 reps. He completed isokinetic CTAR 15 reps x 3 sets. One minute of rest completed between each set. Pt endorsed feeling appropriately challenged at the end of both exercises, and was able to sense adequate resistance during the exercise. Pt benefited from occasional cueing to reduce speed in order to complete the exercise with good form. Instructed pt in the Effortful Swallow and Supraglottic Swallow to improve tongue to palate contact, base of tongue retraction, hyolaryngeal elevation and excursion , pharyngeal constriction, and opening of the upper esophageal sphincter for improved swallowing safety and efficiency. Bolus-driven effortful swallows completed with the following consistencies: Tsp (~5 ml) puree: 5/5 successful swallows; average of 3-4 swallows per bolus. Exercise discontinued as pt expressed increased sticking sensation in his throat as well as beginning of nasal regurgitation. He continues to consistently complete both effortful swallows and supraglottic maneuver during PO intake at home. HEP Recommendation: supraglottic and effortful swallow with all intake, isometric CTAR 40 seconds x 3-5 reps ( 1-minute rest between each), isokinetic CTAR 15 reps x 3-5 sets (1-minute rest between each), reach out to ENT re: medical/surgical interventions. Pt participated well in the treatment session on this date. Pt expressed understanding and motivation to participate in HEP. He expressed understanding of importance of potential ENT medical/surgical intervention while continuing dysphagia treatment with SOLDERING INSPECTOR. Plan for pt to implement HEP and report back progress in the following session. Advance exercises as appropriate. Continue targeting oropharyngeal and pharyngoesophageal dysphagia at a frequency of once a week given pt report and progress with HEP. Recommendations Recommendations Continue Current Diet Liquids Order Thin (IDDSI 0) Diet Order Minced & Moist (IDDSI 5) Medication Whole in Carrier Recommendations Additional Dietary Single Sips,Controlled Sips Needs Aspiration Precautions Recommended Upright at 90 Degrees,Small Bites/Sips,Effortful Precautions Swallow,Double Swallow,Supersupraglottic Swallow Treatment Plan Appropriate for Yes Continued Therapy Therapy Continue advancing exercises as appropriate. Recommendations Dysphagia Goals STG1. Pt will complete swallowing exercises accurately within 10 weeks with 100% accuracy independently in order to improve airway protection, effective cough, pharyngeal contraction, and laryngeal vestibule closure , including, but not limited to: effortful swallow, Chin Tuck Against Resistance (CTAR), supraglottic swallow, super supraglottic swallow, and expiratory muscle strength training (EMST). STG2. Pt will participate in HEP 4-5 x a week targeting oropharyngeal musculature for improved swallowing safety and efficiency per pt report. STG3. Pt will participate in repeat MBSS as indicated to further assess swallowing function and improvement from dysphagia rehabilitative exercises. LTG1. Pt will improve self-perception of swallowing from a baseline of 37/40 on the EAT-10 following participation in SOLDERING INSPECTOR skilled services. LTG2. Pt will improve swallow function through recommended exercises and compensatory strategies in order to advance to FOIS 6 (total oral intake with no special preparation, but must avoid specific foods or liquid items) to allow for safe consumption of daily meals without s/sx of aspiration. Referrals/Other Recommended ENT Consult Referrals
--- NOTE | 2025-03-11 14:12 | ST.PROG ---
Visit Care Team Role Provider Type Cristi Hunter MD Family Provider Physician Primary Care Provider Address: [address] [place] [address] Cesar Hayes MD Attending Provider Physician Referring Provider Address: [address] [place] [address] Visit Care Team Role Provider Type Cristi Hunter MD Family Provider Physician Primary Care Provider Specialty: Family Practice Address: [address] [place] [address] Email: [email or web address] Cesar Hayes MD Attending Provider Physician Referring Provider Specialty: Ear, Nose, Throat Address: [address] [place] [address] Email: [email or web address] STOCK TURNER Dysphagia Treatment ST[facility] Dysphagia Treatment Start: 02/11/25 09:27 Freq: Status: Active Protocol: Document 03/11/25 13:48 SS (Rec: 03/11/25 14:11 SS Desktop) Dysphagia Treatment Session Time Visit Start Time 08:15 Visit Stop Time 08:55 Total Visit Minutes 40 Visit Information Visit Number 5 Plan of Care Dates 02/11/25-05/14/25 Insurance [employer] Medicare (no visit limit) Information Setting Assessment Location Outpatient Care Visit Type Note Type Progress Note Next Note Type Next Note Type Treatment Note Patient Information Subjective Pt arrived to the session on time and attended Observations independently. Pt was motivated and engaged throughout. Treatment Liquids Trialed Thin (IDDSI 0) Solids Trialed Purred (IDDSI 4) Administration Type Tea Spoon,Self-Feeding Oral Strategies Upright at 90 degrees,Controlled Bite/Sip Size, Alternate Liquids/Solids Pharyngeal Sitting Upright (90 deg),Double Swallow,Supraglottic Strategies Swallow,Small Bites and Sips,Alternate Liquids/Solids Treatment Activities Reviewed recommendation for ENT referral. Implemented supraglottic swallow and Pablo Maneuver targeting maximizing oropharynx range of motion of base of tongue , superior pharyngeal constrictor, and cricopharyngeous in order to enhance swallowing safety and efficiency. Updated and reviewed HEP at the end of the session. Progress note completed today. The IDDSI Framework Protocol: IDDSI.1 Assessment Patient Response to Good Treatment Rehab Potential Fair Assessment of Discussed pt observations and concerns since last Improvement treatment session. Pt continues to implement supraglottic maneuver during all PO intake, though denied significant improvement to swallowing function. He has stopped completing CTAR, which has been causing him increased jaw pain, possibly related to previous surgery to remove necrotic tissue. Reviewed recommendation for ENT referral, though pt has not followed up yet. Encouraged him to do so. Instructed pt in the Effortful Swallow and Supraglottic Swallow to improve tongue to palate contact, base of tongue retraction, hyolaryngeal elevation and excursion , pharyngeal constriction, and opening of the upper esophageal sphincter for improved swallowing safety and efficiency. Bolus-driven effortful swallows completed with the following consistencies: Thin liquid via cup sip (~5 ml): 4/5 successful swallows; average of 2-3 swallows per bolus. X1 immediate cough following swallow. Tsp (~5 ml) puree: 3/3 successful swallows; average of 3-4 swallows per bolus. Pt declined to complete additional trials due to sticking sensation in his throat as well as beginning of nasal regurgitation. Instructed pt in completing The Palbo maneuver to improve hyolaryngeal movement, pharyngeal pressure, UES opening, and esophageal pressure (Mariposa et al., 2024). Pt was instructed to hold his swallow at the peak for about 2-3 seconds, then release. Pt unable to not let his larynx drop from max elevation/excursion initially, but benefited from STOCK TURNER modeling and tactile cueing to complete x5 reps. Recommended pt continue to complete Pablo Maneuver x10-20 and supraglottic with all PO intake daily. Pt expressed understanding and was agreeable. 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 He has attended at a frequency of 1x/week and has been motivated and engaged. Treatment has included education re: normal swallowing anatomy and physiology and the results of the MBSS and safe swallowing precautions to reduce risk of aspiration. Additionally, it included training in rehabilitative exercises to target oropharyngeal dysphagia, including isometric and isokinetic Chin Tuck Against Resistance (CTAR), Supraglottic Swallow, Shaker, and Pablo Maneuver. Pt has benefitted from education re: form and goal of the exercises and STOCK TURNER cueing and modeling. Since the start of care, pt has not improved in self- perception of swallowing from baseline or endorsed improvement in swallowing during meals. He continues to experiences significant nasal regurgitation, sensation of pharyngeal residue, and coughing with intake. He will benefit from ENT consult to discuss medical management of nasal cavity closure and increasing distention and opening duration of UES. Pt has been completing HEP 3-4 x a week, but continues to benefit from reinforcement to increase consistency. He continues to present with oropharyngeal and pharyngoesophageal dysphagia. He would benefit from continues speech therapy services at a frequency of 1x/ week to address swallowing safety and efficiency as well as overall quality of life. Prognosis for treatment will depend of ENT consult for medical/ surgical management of UES opening and pt adherence of HEP. Recommendations Recommendations Continue Current Diet Liquids Order Thin (IDDSI 0) Diet Order Minced & Moist (IDDSI 5) Medication Whole in Carrier Recommendations Additional Dietary Single Sips,Controlled Sips Needs Aspiration Precautions Recommended Upright at 90 Degrees,Small Bites/Sips,Effortful Precautions Swallow,Double Swallow,Supersupraglottic Swallow Treatment Plan Appropriate for Yes Continued Therapy Therapy Continue advancing exercises as appropriate. Recommendations Dysphagia Goals STG1. Pt will complete swallowing exercises accurately within 10 weeks with 100% accuracy independently in order to improve airway protection, effective cough, pharyngeal contraction, and laryngeal vestibule closure , including, but not limited to: effortful swallow, Chin Tuck Against Resistance (CTAR), supraglottic swallow, super supraglottic swallow, and expiratory muscle strength training (EMST). 03/11/25: Goal progressing. STG2. Pt will participate in HEP 4-5 x a week targeting oropharyngeal musculature for improved swallowing safety and efficiency per pt report. 03/11/25: Goal progressing. STG3. Pt will participate in repeat MBSS as indicated to further assess swallowing function and improvement from dysphagia rehabilitative exercises. 03/11/25: Goal progressing. LTG1. Pt will improve self-perception of swallowing from a baseline of 37/40 on the EAT-10 following participation in [facility] skilled services. 03/11/25: Goal progressing. LTG2. Pt will improve swallow function through recommended exercises and compensatory strategies in order to advance to FOIS 6 (total oral intake with no special preparation, but must avoid specific foods or liquid items) to allow for safe consumption of daily meals without s/sx of aspiration. 03/11/25: Goal progressing. Referrals/Other Recommended ENT Consult Referrals
--- NOTE | 2025-03-18 10:24 | ST.IPDYTX ---
Visit Care Team Role Provider Type Cristi Hunter MD Family Provider Physician Primary Care Provider Specialty: Family Practice Address: [address] [place] [address], [id number] Email: [email or web address] Cesar Hayes MD Attending Provider Physician Referring Provider Specialty: Ear, Nose, Throat Address: [address] [place] [address], [id number] Email: [email or web address] MANAGER Dysphagia Treatment GROUP FITNESS MANAGER Dysphagia Treatment Start: 02/11/25 09:27 Freq: Status: Active Protocol: Document 03/18/25 10:13 MA (Rec: 03/18/25 10:24 MA Desktop) Dysphagia Treatment Session Time Visit Start Time 08:25 Visit Stop Time 08:35 Total Visit Minutes 10 Visit Information Visit Number 6 Plan of Care Dates 02/11/25-05/14/25 Insurance [employer] Medicare (no visit limit) Information Setting Assessment Location Outpatient Care Visit Type Note Type Progress Note Next Note Type Next Note Type Treatment Note Patient Information Subjective Pt arrived to the session on time and attended Observations independently. Session started 10 minutes late d/t ST running late. Patient was notified prior that therapist would be running late. ST greeted Pt in the waiting room and apologized for being late with Pt proceeding to say, Excuses are like assholes, we all have them. I don't want to hear any of yours. ST and Pt entered therapist's office with ST reviewing with Pt what he has been working on with his regularly scheduled ST with him saying continuously, We work on exercises but I don't do them because they don't even work and I was hoping you'd have something new that will work. ST educated Pt on reason and importance of swallow exercises and additional treatment option that this news writer is certified in, which is VitalStim therapy, however Pt reported, I tried that too and it didn't work. ST acknowledged Pt's feelings by stating this must be very frustrating for him, with him saying in a belligerent tone, You have no idea how frustrating it is. You take swallowing for granted. ST attempted to facilitate conversation with Pt about his current diet/ intake at home with Pt reporting he doesn't eat much and has lost weight. ST educated Pt on potential option for utilizing a PEG tube in addition to PO intake to ensure he is getting primary nutrition/hydration. Pt stated, A tube isn't an option because I don't eat through a tube. ST asked patient what his goals for therapy were. Pt proceeded to state, I thought you'd have something better to do with me. Pt reports he has seen speech therapists for years all over the area and has not received effective treatment. He stated, You listen to me. You need to figure out something better to do. ST communicated with Pt plan for session to be done and escorted him out to the waiting room with Pt stating, I want my $10 back. Be on time next time. ST felt emotional and uncomfortable from interaction and communicated what happened with foreman or supervisor and operator who instructed therapist to fill out an incident report. Treatment Pharyngeal Small Bites and Sips,Alternate Liquids/Solids Strategies Treatment Activities See subjective. The IDDSI Framework Protocol: IDDSI.1 Assessment Patient Response to Unable to Participate Treatment Rehab Potential Fair Assessment of See subjective. Improvement Recommendations Recommendations Continue Current Diet Liquids Order Thin (IDDSI 0) Diet Order Minced & Moist (IDDSI 5) Medication Whole in Carrier Recommendations Additional Dietary Single Sips,Controlled Sips Needs Aspiration Precautions Recommended Upright at 90 Degrees,Small Bites/Sips,Effortful Precautions Swallow,Double Swallow,Supersupraglottic Swallow Treatment Plan Appropriate for Yes Continued Therapy Therapy Continue advancing exercises as appropriate. Recommendations Dysphagia Goals STG1. Pt will complete swallowing exercises accurately within 10 weeks with 100% accuracy independently in order to improve airway protection, effective cough, pharyngeal contraction, and laryngeal vestibule closure , including, but not limited to: effortful swallow, Chin Tuck Against Resistance (CTAR), supraglottic swallow, super supraglottic swallow, and expiratory muscle strength training (EMST). 03/11/25: Goal progressing. STG2. Pt will participate in HEP 4-5 x a week targeting oropharyngeal musculature for improved swallowing safety and efficiency per pt report. 03/11/25: Goal progressing. STG3. Pt will participate in repeat MBSS as indicated to further assess swallowing function and improvement from dysphagia rehabilitative exercises. 03/11/25: Goal progressing. LTG1. Pt will improve self-perception of swallowing from a baseline of 37/40 on the EAT-10 following participation in [facility] [employer] [facility]NAGER skilled services. 03/11/25: Goal progressing. LTG2. Pt will improve swallow function through recommended exercises and compensatory strategies in order to advance to FOIS 6 (total oral intake with no special preparation, but must avoid specific foods or liquid items) to allow for safe consumption of daily meals without s/sx of aspiration. 03/11/25: Goal progressing. Referrals/Other Recommended ENT Consult Referrals
--- NOTE | 2025-05-25 18:46 | ST.OPIE ---
Visit Care Team Role Provider Type Cristi Hunter MD Family Provider Physician Primary Care Provider Specialty: Family Practice Address: [address] [place] [address], [id number] Email: [email or web address] Cesar Hayes MD Attending Provider Physician Referring Provider Specialty: Ear, Nose, Throat Address: [address] [place] [address], [id number] Email: [email or web address] Speech-Language Pathology Initial Evaluation PANEL RAISER OPERATOR Clinical Swallow Evaluation Start: 02/11/25 09:27 Freq: Status: Active Protocol: Document 02/11/25 09:28 SS (Rec: 02/11/25 09:38 SS Desktop) Clinical Swallow Evaluation Session Time Visit Start Time 08:15 Visit Stop Time 09:10 Total Visit Minutes 55 Visit Information Visit Number 1 Plan of Care Dates 02/11/25-05/14/25 Insurance [employer] Medicare (no visit limit) Information Referral Referring Provider Dr. Cesar Hayes (ENT at [facility]) Reason for Referral Chronic oropharyngeal and pharyngoesophageal dysphagia Setting Assessment Location Outpatient Care Visit Type Note Type Initial evaluation Next Note Type Next Note Type Treatment Note Patient Information Identification Type Name History Pt is a 75-year-old male, referred for a speech therapy assessment by Dr. 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 BACKGROUND/MEDICAL HISTORY Social History: Pt lives with spouse and is retired. Onset Date: Squamous cell carcinoma of base of tongue diagnosed in 2002 with subsequent resection and chemoradiation. 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 Pt has had multiple MBSS done, in 2015, 2018, and most recently on 01/15/[address] [facility]. PANEL RAISER OPERATOR reached out to medical records to obtain complete reports. Pt reports participating in PANEL RAISER OPERATOR services about 10 years ago. He completed vital stim with minimal improvement. He also reported botox dilation of his UES in 2014 with minimal improvement. Prior Medical History: GERD, hx of carcinoma of base of tongue and chemoradiation, epilepsy, hypothyroidism, hyperlipidemia, back fusion ? Predisposing Dysphagia Risk Factors: hx of squamous cell carcinoma of the base of tongue, hx of chemoradiation ? Signs of Possible Chronic Dysphagia: Pt report of swallowing difficulty, unintentional weight loss, hx of chronic dysphagia since 2002 ? Precipitating Dysphagia Risk Factors: invasive squamous cell carcinoma + hx of chemoradiation treatment ? Present Predictors of Aspiration Pneumonia (Mireille et al., 1998): GERD, aspiration visualized on most recent MBSS, oral health (dental surgeries to remove bone and tooth particles from jaw) Subjective Pt arrived to the evaluation on time and attended Observations independently. Pt was motivated and engaged throughout the evaluation. Reported by Patient/Caregiver Pain/Discomfort Yes Location Neck Other Symptoms Choking,Coughing,Difficulty swallowing liquids, Difficulty swallowing pills,Difficulty swallowing solids,Food gets stuck,History of aspiration or pneumonia,Weight loss Comment PATIENT OBSERVATIONS ? Patient endorses changes in swallowing around 2002, worsening in the past year. ? He describes swallowing as feeling food stuck in his throat. He occasionally feels that food becomes trapped in his throat and this causes a choking sensation. He also regurgitated food through his nasal cavity when he attempts to clear his throat or cough. ? He is restricting foods at this time and reports reduced PO intake. ? He reports the sensation of pills and solids becoming stuck. This sensation does not clear with multiple swallows or liquid wash. ? He reports unintentional weight loss of approximately 5-10 lbs over the past year. ? He endorses decreased appetite and reduced sense of taste. He denies hx pf PNA. ? He reports consistent coughing/choking with PO intake . This is somewhat reduced when he attempts to hold his breath, likely due to forced adduction of his vocal folds, increasing airway protection. BASELINE LEVEL OF FUNCTION Solids: Minced and moist (occasionally eats regular textures, but prefers to add sauce. gravy, etc) Liquids: Thin Medications: Whole with puree carrier Functional Oral Intake Scale (FOIS): FOIS level 5 ? FOIS Mcdonald: Level 1 = no oral intake, Level 2 = tube dependent with minimal/inconsistent oral intake, Level 3 = tube supplements with consistent oral intake, Level 4 = total oral intake of a single consistency, Level 5 = total oral intake of multiple consistencies requiring special preparation, Level 6 = total oral intake with no special preparation, but must avoid specific foods or liquid items, Level 7 = total oral intake with no restrictions Current Diet Minced & Moist (IDDSI 5),Soft & Bite-sized (IDDSI 6) Baseline Feeding Independent in self-feeding Method Type of Patient The Eating Assessment Tool (EAT-10), The Dutch Leander Questionnaire (e.g., Dysphagia Inventory EAT-10, MDADI, etc. ) Results The Eating Assessment Tool (EAT-10) was administered. This tool is a symptom-specific outcome instrument for dysphagia. It consists of ten statements regarding the patient?s swallow and the patient scores each on a scale of 0-4, with 0 indicating no problem and 4 indicating a severe problem. A score of >3/40 could indicate a swallowing impairment that warrants further assessment/treatment. The patient scored a 37/40, indicating the need for further assessment. The .Margo. Leander Dysphagia Inventory is a questionnaire designed for evaluating the impact of dysphagia of QOL for patients with head and neck cancer . The patient is asked to rate each statement from ? strongly agree? to ?strongly disagree?. Questionnaire administered on this date. Results are as follows. Global Score: 1/5 Global score ranges from 1 (extremely low functioning) to 5 (high functioning) Composite Score: 31/100 Composite score ranges from 20 (extremely low functioning) to 100 (high functioning) The IDDSI Framework Protocol: IDDSI.1 Objective Assessment Mental Status Alert,Responsive,Cooperative Oral Integrity Sores/Lesions,Xerostomia/Dry mouth Dentition Missing teeth Lip Function Within normal limits Tongue Function Mild impairment Tongue Protrusion Reduced range of motion,Reduced strength Tongue Retraction Reduced range of motion,Reduced strength Tongue Reduced range of motion,Reduced strength Lateralization Jaw Function Mild impairment Observation of Jaw Deviates to the left at Rest Jaw Opening Reduced range of motion Jaw Closing Within normal limits Jaw Lateralization Deviates to the left,Reduced range of motion Jaw Protrusion Deviates to the left,Reduced range of motion Jaw Retraction Within normal limits Hard/Soft Palate Severe impairment Function Observations of Hard Abnormal uvula /Soft Palate Nasality Hypernasal Comment Pt?s oral health is fair. Pt has his own dentition with dental work noted. The pt reports brushing his teeth 1x daily, although he expresses he sometimes misses. Recent jaw surgery done with large gaping hole in right lower jaw noted, in which pt notes debris gets caught. Oral health status is one of the three pillars of aspiration pneumonia, with research showing that poor oral health increases the risk of pulmonary compromise associated with aspiration. 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 Suspect lack of closure of nasal cavity during swallow given regurgitation. Large buccal hole noted in left cheek near jaw. Pt reports he had a jaw surgery recently during which fragments of necrotic bone and teeth were removed. CRANIAL NERVE EXAM CN V (Trigeminal): intact b/l CN VII (Facial): intact b/l CN IX/X (Glossopharyngeal/Vagus): intact b/l CN XII (Hypoglossal): impaired b/l given reduced ROM and strength with all movement Food and Liquid Trials Results Did not administer PO trials during initial evaluation given high aspiration risk and pt expressing he would like to avoid PO intake as he has a dental appointment to follow up on jaw surgery immediately after evaluation. Per brief note from Letty Lu CCC-PANEL RAISER OPERATOR following MBSS on 01/15/25, ?pt presents with significant oropharyngeal and pharyngoesophageal dysphagia characterized by diminished swallowing efficiency resulting in frequent airway invasion and residuals in the pharynx.? Pt also presented with ? limited abutting of the tongue base and the superior pharyngeal constrictor resulting in persistent residuals in the pharynx requiring many swallows to clear.? Volitional breath holding was noted to facilitate laryngeal vestibule closure and reduce frequency of aspiration. Regurgitation occurred after swallow indicating inadequate velopharyngeal closure. 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 PANEL RAISER OPERATOR to obtain full report for specific impairments noted during oral, pharyngeal, and esophageal phases of swallow and visualization of penetration and aspiration of different consistencies visualized during MBSS. The IDDSI Framework Protocol: IDDSI.1 Findings Swallowing Function Oropharyngeal phase dysphagia Swallowing Function Pharyngoesophageal dysphagia Comments Severity of Swallow Severely impaired Impairment Contributing Factors Impaired oral-pharyngeal transport,Reduced laryngeal to Swallow excursion,Impaired airway protection,Excessive Impairment pharyngeal residue Prognosis Guarded Based on Cognitive status,Family support,Age,Duration of symptoms/severity Comment Pt presents with significant oropharyngeal and pharyngoesophageal dysphagia s/p chemoradiation and resection/dissection of squamous cell carcinoma of base of tongue in 2002. 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 Based on patient?s fair oral health status and overall immune function, pt currently remains at a moderate risk of pulmonary compromise associated with aspiration at this time. Swallow prognosis is guarded given latency since dysphagia onset, though pt is highly motivated to participate in treatment and has strong family support. Pt appears to be at a moderate risk for malnutrition/dehydration. Recommend pt continue with diet modification (mined and moist diet texture). Anticipate to obtain further information re: swallow pathophysiology from MBSS report from 01/15/25 once it is available in order to determine the safest diet, effective compensatory strategies, and potential rehabilitation exercises for therapy. Pt appears to be a good candidate for outpatient speech therapy services, targeting both oral phase efficiency and pharyngeal phase efficiency and safety. Rehabilitative exercises may include Effortful swallow, supraglottic, and Super-supraglottic, pending PANEL RAISER OPERATOR receiving full MBSS report. Impact on Safety and Risk for aspiration,Risk for inadequate nutrition/ Functioning hydration Recommendations Instrumental No Assessment Swallowing Treatment Yes Frequency 1-2x/week Duration 3 months Recommended Solids Minced & Moist (IDDSI 5) Recommended Liquids Thin (IDDSI 0) Other Diet modifications: continue with current diet Recommendations utilizing slow rate, small bites and sips, multiple swallows, and adding sauce, gravy, etc) Risk management: upright positioning, thorough oral care before any type of oral intake Late-term effects of HNC and XRT: education regarding continued PO intake, implementation/completion of a swallowing home exercise program, training and coaching in the implementation/completion of tongue, jaw, neck, and larynx stretching protocol as indicated. This is to address the development of xerostomia, fibrosis, and weakness/atrophy throughout the swallowing mechanism due to reduced appetite and limited PO intake. Specialist referrals: further evaluation of cricopharyngeal dilatation vs surgical consultation for CP myotomy if deemed medically/surgically appropriate. Pt may also benefit from obturator prosthesis for velopharyngeal insufficiency if deemed appropriate by ENT. Therapy: Improve pharyngeal strength and laryngeal vestibule closure to work towards a more consistent PO diet. PANEL RAISER OPERATOR requested pt records from [facility] to be faxed; results to inform POC. Safety Precautions/ Reduce distractions,Remain upright (90 degrees) during Swallowing all oral intake,Upright position at least 30 minutes Recommendations after meals,Small bites and sips when eating,Slow rate; swallow between bites,Multiple swallows,Alternate liquids and solids,Strict oral care after intake,Check for pocketing Medication Whole in Carrier Recommendations Referrals Recommended Dietary,Otolaryngology/ENT Referrals Education Patient/Caregiver Described results of evaluation,Patient expressed Education understanding of evaluation,Patient expressed agreement with goals & treatment plans Goals Short-term Goals 1. Pt will complete swallowing exercises accurately within 10 weeks with 100% accuracy independently in order to improve airway protection, effective cough, pharyngeal contraction, and laryngeal vestibule closure , including, but not limited to: effortful swallow, Chin Tuck Against Resistance (CTAR), supraglottic swallow, supersupraglottic swallow, and expiratory muscle strength training (EMST). 2. Pt will participate in HEP 4-5 x a week targeting oropharyngeal musculature for improved swallowing safety and efficiency per pt report. 3. Pt will participate in repeat MBSS as indicated to further assess swallowing function and improvement from dysphagia rehabilitative exercises. Long-term Goals 1. Pt will improve self-perception of swallowing from a baseline of 37/40 on the EAT-10 following participation in PANEL RAISER OPERATOR skilled services. 2. Pt will improve swallow function through recommended exercises and compensatory strategies in order to advance to FOIS 6 (total oral intake with no special preparation, but must avoid specific foods or liquid items) to allow for safe consumption of daily meals without s/sx of aspiration.
--- NOTE | 2025-05-27 09:42 | ST.OPDC.SWTH ---
Visit Care Team Role Provider Type Cristi Hunter MD Family Provider Physician Primary Care Provider Specialty: Family Practice Address: [address] [place] [address], [id number] Email: [email or web address] Cesar Hayes MD Attending Provider Physician Referring Provider Specialty: Ear, Nose, Throat Address: [address] [place] [address], [id number] Email: [email or web address] GIN POLE OPERATOR Dysphagia Treatment GIN POLE OPERATOR Dysphagia Treatment Start: 02/11/25 09:27 Freq: Status: Active Protocol: Document 05/27/25 09:35 SS (Rec: 05/27/25 09:41 SS [email or web address]) Dysphagia Treatment Visit Information Visit Number 6 Plan of Care Dates 02/11/25-05/14/25 Insurance [employer] Medicare (no visit limit) Information Setting Assessment Location Outpatient Care Visit Type Note Type Discharge Summary The IDDSI Framework Protocol: IDDSI.1 Assessment Patient Response to Fair Treatment Rehab Potential Fair Assessment of Pt has been seen for 6 speech therapy visits addressing Improvement pharyngoesophageal dysphagia s/p undergoing chemoradiation 2/2 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 He has attended at a frequency of once a week and has been motivated and engaged throughout. Per last progress note, ?Treatment has included education re: normal swallowing anatomy and physiology and the results of the MBSS and safe swallowing precautions to reduce risk of aspiration. Additionally, it included training in rehabilitative exercises to target pharyngoesophageal dysphagia, including isometric and isokinetic Chin Tuck Against Resistance ( CTAR), Supraglottic Swallow, Shaker, and Pablo Maneuver. Pt has benefitted from education re: form and goal of the exercises and GIN POLE OPERATOR cueing and modeling. Since the start of care, pt has not improved in self- perception of swallowing from baseline or endorsed improvement in swallowing during meals. He continues to experiences significant nasal regurgitation, sensation of pharyngeal residue, and coughing with intake. He will benefit from ENT consult to discuss medical management of nasal cavity closure and increasing distention and opening duration of UES. Pt has been completing HEP 3-4 x a week, but continues to benefit from reinforcement to increase consistency. He continues to present with oropharyngeal and pharyngoesophageal dysphagia. He would benefit from continues speech therapy services at a frequency of 1x/ week to address swallowing safety and efficiency as well as overall quality of life. Prognosis for treatment will depend of ENT consult for medical/ surgical management of UES opening and pt adherence to HEP.? Account discharged per pt request as he was to undergo dental surgery to remove decayed bone matter from jaw. Recommend he request a referral from his PCP if he would like to resume GIN POLE OPERATOR services. Pt agreeable to plan . Recommendations Recommendations Continue Current Diet Liquids Order Thin (IDDSI 0) Diet Order Minced & Moist (IDDSI 5) Medication Whole in Carrier Recommendations Additional Dietary Single Sips,Controlled Sips Needs Aspiration Precautions Recommended Upright at 90 Degrees,Small Bites/Sips,Effortful Precautions Swallow,Double Swallow,Supersupraglottic Swallow Treatment Plan Appropriate for No: See above. Continued Therapy Dysphagia Goals STG1. Pt will complete swallowing exercises accurately within 10 weeks with 100% accuracy independently in order to improve airway protection, effective cough, pharyngeal contraction, and laryngeal vestibule closure , including, but not limited to: effortful swallow, Chin Tuck Against Resistance (CTAR), supraglottic swallow, super supraglottic swallow, and expiratory muscle strength training (EMST). 03/11/25: Goal progressing. STG2. Pt will participate in HEP 4-5 x a week targeting oropharyngeal musculature for improved swallowing safety and efficiency per pt report. 03/11/25: Goal progressing. STG3. Pt will participate in repeat MBSS as indicated to further assess swallowing function and improvement from dysphagia rehabilitative exercises. 03/11/25: Goal progressing. LTG1. Pt will improve self-perception of swallowing from a baseline of 37/40 on the EAT-10 following participation in GIN POLE OPERATOR skilled services. 03/11/25: Goal progressing. LTG2. Pt will improve swallow function through recommended exercises and compensatory strategies in order to advance to FOIS 6 (total oral intake with no special preparation, but must avoid specific foods or liquid items) to allow for safe consumption of daily meals without s/sx of aspiration. 03/11/25: Goal progressing. Referrals/Other Recommended ENT Consult Referrals
== END 2025-05-28 09:55 | disposition home or self-care (01) ==
LOC: SP 08:15
PROVIDERS: Family Provider Family Medicine; PCP Family Medicine; Referring Provider Otolaryngology; Visit Provider Otolaryngology
DX: R13.19 Other dysphagia (principal); Z92.3 Personal history of irradiation
CPT/HCPCS: 92526; 92610

== ENCOUNTER → 2025-05-08 12:15 | Outpatient (CLI) | payer MEDICARE, SELFPAY ==
[2023-06-04 14:46] VITALS: BMI 24.7
[2025-05-08 13:23] LABS: TSH w/ Reflex to FT4 < 0.02 uIU/mL (0.47-4.68)
[2025-05-08 13:48] LABS: Free T4, Direct Thyroxine 2.49 ng/dL (0.78-2.19)
== END ==
PROVIDERS: Family Provider Family Medicine; PCP Family Medicine; Referring Provider Family Medicine; Visit Provider Family Medicine
DX: E03.9 Hypothyroidism, unspecified (principal); E78.2 Mixed hyperlipidemia
CPT/HCPCS: 36415; 84439; 84443

== ENCOUNTER → 2025-07-04 08:46 | Outpatient (CLI) | payer MEDICARE, SELFPAY ==
[2023-06-04 14:46] VITALS: BMI 24.7
[2025-07-04 10:28] LABS: TSH w/ Reflex to FT4 < 0.02 uIU/mL (0.47-4.68)
[2025-07-04 11:01] LABS: Free T4, Direct Thyroxine 2.31 ng/dL (0.78-2.19)
== END ==
PROVIDERS: Family Provider Family Medicine; PCP Family Medicine; Referring Provider Family Medicine; Visit Provider Family Medicine
DX: E03.9 Hypothyroidism, unspecified (principal)
CPT/HCPCS: 36415; 84439; 84443